=== PATIENT | female | born 1945 | race Caucasian/White ===

== ENCOUNTER → 2019-04-25 | Outpatient (CLI) | payer MEDICARE ==
[~2019-04-25] MED LIST: ALEN70SO PO; AMIT50TA PO; AMLO5TAB6 PO; BUPR150T3 PO; CALC600T7 PO; CALCCHW4 PO; CRES10TA PO; DOCU100T8 PO; DOCU250C7 PO; GABA-845 PO; LOSA100T5 PO; LYRI75CA PO; MIRA3350 PO; MIRA33504 PO; OMEP40CA2 PO; PERC5TAB12 PO; PROAAER10 INH; SENN-83 PO; SENN8.6T76 PO; TYLE167L PO; VITA100067 PO; XARE10TA PO; tylenol pm PO
[2019-04-25 19:03] LABS: BLOOD UREA NITROGEN 20 MG/DL (7-18); CREATININE FOR GFR 0.88 MG/DL (0.55-1.30); GLOMERULAR FILTRATION RATE > 60.0 (>39)
== END ==
LOC: M SMT 14:23
PROVIDERS: ATTEND Internal Medicine Pulmonary Disease
DX: R91.8 Other nonspecific abnormal finding of lung field (principal)

== ENCOUNTER → 2019-04-28 | Outpatient (CLI) | payer MEDICARE ==
[~2019-04-28] MED LIST changes: +ISOVUE-370 76% 100ML VIAL (Q9967) As Ordered ONE
--- NOTE | 2019-04-28 12:25 | REP ---
CT of the chest with IV contrast: Comparison is the outside PET / CT scan dated 03/10 2019 from [place], [place]. There is a right upper lobe lung nodule, similar to the comparison study. On the CT scan today the nodule measures 2.5 cm AP by 1.5 cm transverse by 1.5 cm craniocaudad. The margins are lobulated. No other lung nodules or masses are again. There is no mediastinal, hilar or axillary lymph node enlargement. There are numerous bulla replacing the lung parenchyma bilaterally. There is discoid atelectasis in the right middle lobe. The thoracic aorta is unremarkable. Cardiac size is normal. There is no pericardial effusion. The visualized upper abdominal contents are unremarkable. There is no adrenal mass. Impression: There is a right upper lobe lung nodule as described. There is no adenopathy. There is no adrenal mass. There is no hepatic mass in the visualized hepatic parenchyma. There are numerous bulla replacing the lung parenchyma bilaterally. Electronically Signed by Uri Sanchez MD 04/28/2019 12:17 P
== END ==
LOC: M RAD 09:39
PROVIDERS: ATTEND Internal Medicine Pulmonary Disease
DX: R91.8 Other nonspecific abnormal finding of lung field (principal)
CPT/HCPCS: 71260; Q9967

== ENCOUNTER 2019-05-01 08:11 | Day surgery (SDC) | payer MEDICARE ==
[~2019-05-01] VITALS: Ht 160 cm; Wt 65.3 kg
[~2019-05-01 08:11] MED LIST changes: +CETACAINE SPRAY 5GM As Ordered ONE; +EPINEPHrine 1MG/10ML SYRINGE 1.5IN As Ordered ONE; +EPINEPHrine INJ 1 MG/ML 1ML AMP As Ordered ONE; -ISOVUE-370 76% 100ML VIAL (Q9967) As Ordered ONE; +LIDOCAINE 1% SDV INJ 30 ML VIAL As Ordered ONE; +LIDOCAINE VISCOUS 2% SOLN 15ML UDC As Ordered ONE; +LR 1,000 ML IV ONE; +THROMBIN SOLN 5,000 UNITS VIAL As Ordered ONE
[2019-05-01] MEDS ORDERED: MIDAZOLAM INJ 2 MG/2 ML VIAL (J2250) As Ordered ONE (09:52)
[2019-05-01] MEDS ORDERED: fentaNYL 100 MCG/2 ML INJECTION (J3010) As Ordered ONE (09:52)
[2019-05-01] MEDS ORDERED: PROPOFOL 200 MG/20 ML VIAL As Ordered ONE (09:52)
[2019-05-01] MEDS ORDERED: dexameTHASONE 4 MG/ML 1ML VIAL (J1100) As Ordered ONE (09:52)
[2019-05-01] MEDS ORDERED: LIDOCAINE 2% INJ 100 MG/5 ML SDV (FOR ANES.) As Ordered ONE (09:52)
[2019-05-01] MEDS ORDERED: ROCURONIUM BROMIDE 50 MG/5 ML VIAL As Ordered ONE (09:52)
[2019-05-01] MEDS ORDERED: ONDANSETRON 4MG/2ML VIAL (J2405) As Ordered ONE (10:01)
[2019-05-01] MEDS ORDERED: PHENYLephrine HCL 500 MCG/5 ML (100MCG/ML) SYRINGE (J2370) As Ordered ONE (10:03)
[2019-05-01] MEDS ORDERED: SUGAMMADEX SODIUM 500 MG/5 ML VIAL (BRIDION) As Ordered ONE (10:45)
--- NOTE | 2019-05-01 11:20 | RO ---
DATE OF PROCEDURE: 05/01/2019 PREOPERATIVE DIAGNOSIS: Abnormal chest CT, left upper lobe mass. POSTOPERATIVE DIAGNOSIS: Abnormal chest CT, left upper lobe mass. FINDINGS: Endobronchial lesion and left upper lobe but more anterior of the posterior segments. PROCEDURALIST: Dr. Ramirez FORENSIC PATHOLOGIST: None. ANESTHESIA: General. SPECIMENS OBTAINED: 1. Endobronchial biopsy left upper lobe. 2. Cyto brush left upper lobe. 3. Bronchoalveolar lavage left upper lobe. 4. Bronchoalveolar wash of the left mainstem. DESCRIPTION OF PROCEDURE: After informed consent was reviewed with the patient in the preoperative area, she has taken down to OR number [id number] for an anticipated navigation bronchoscopy based on CT imaging. The patient was placed under general anesthesia, intubated with an 8.5 endotracheal tube. The case was then handed over to me. Time-out was performed with two patient identifiers identifying correct site, correct procedure. Cetacaine spray was then used to anesthetize the airway and provide lubrication for the 1T 190 bronchoscope. The 1T 190 bronchoscope was then inserted into the airway. Karen was sharp. Trachea was midline. Right and left mainstem bronchus was normal. RB 1 through 10 was normal without endobronchial lesions. There was significant amounts of banding and pitting. The spur was not enlarged. Right mainstem bronchus was normal. Upon entering the left mainstem bronchus, this was normal. LB 6 through 10 was normal. The lingula 4 and 5 did not show any endobronchial lesions. Upon entering the upper lobe, there were three segments. The most anterior of the posterior segments had an endobronchial lesion with a finger-like projection coming out of it, which was slightly mobile with suctioning. Upon suctioning, I was able to get the tissue to come out more. This had a necrotic end. The tissue was very pale white, mostly avascular; however, the base was slightly vascular. Biopsies of this were taken. I tried to pass forceps beyond this to see if there could be any movement of the tissue out of the obstructed airway. The tumor would retract with inspiration. Endobronchial biopsies were then performed. Hemostasis was assured after that. Cytology brushing was followed by BAL. At that point in time, I retracted the 1T 190 scope and placed a linear endobronchial ultrasound to view the area to see if I was able to see any surrounding tissue for needle aspiration. I was not able to get into a position where there was enough tissue for needle aspiration. There was no significant adenopathy on endobronchial ultrasound. Therefore, the endobronchial ultrasound was removed. Bronchoscope was replaced and hemostasis was assured. The patient is extubated in recovery. Postprocedure chest x-ray is pending.
--- NOTE | 2019-05-01 11:22 | REP ---
CHEST, PORTABLE: AP portable view of the chest is performed. There is no pneumothorax, status post bronchoscopy. Nodular opacity is seen in the left suprahilar region. There is diffuse interstitial prominence. The heart is normal in size. There is calcification and tortuosity of the thoracic aorta. Mediastinal silhouette is otherwise unremarkable. IMPRESSION: No pneumothorax, status post bronchoscopy. Electronically Signed by Uri Artis MD 05/02/2019 09:53 A
[2019-05-01] MEDS ORDERED: fentaNYL 100 MCG/2 ML INJECTION (J3010) IV PRN (12:00)
[2019-05-01] MEDS ORDERED: LR 1,000 ML IV SCH (12:00)
[2019-05-01] MEDS ORDERED: ONDANSETRON 4MG/2ML VIAL (J2405) IV PRN (12:00)
[2019-05-01 12:35] VITALS: BP 139/82
[2019-05-01 13:23] LABS: COLOR RED (COLORLESS); SOURCE LEFT UPPER LOBE
[2019-05-01 13:24] LABS: APPEARANCE HAZY (CLEAR)
== END 2019-05-01 12:35 | disposition home or self-care (01) ==
LOC: M SDC 08:11
PROVIDERS: ATTEND Internal Medicine Pulmonary Disease
DX: B44.1 Other pulmonary aspergillosis (principal); J44.9 Chronic obstructive pulmonary disease, unspecified; I10 Essential (primary) hypertension; E78.5 Hyperlipidemia, unspecified; I73.9 Peripheral vascular disease, unspecified; K21.9 Gastro-esophageal reflux disease without esophagitis; Z79.899 Other long term (current) drug therapy; Z87.891 Personal history of nicotine dependence; M81.0 Age-related osteoporosis without current pathological fracture
CPT/HCPCS: 31623; 31624; 31625; 71045; 87070; 87077; 87102; 87186; 87205; 88104; 88305; 89050; J1100; J2250; J2370; J2405; J3010

== ENCOUNTER → 2019-05-25 | Outpatient (REF) | payer MEDICARE ==
[~2019-05-25] MED LIST changes: -CETACAINE SPRAY 5GM As Ordered ONE; -EPINEPHrine 1MG/10ML SYRINGE 1.5IN As Ordered ONE; -EPINEPHrine INJ 1 MG/ML 1ML AMP As Ordered ONE; -LIDOCAINE 1% SDV INJ 30 ML VIAL As Ordered ONE; -LIDOCAINE VISCOUS 2% SOLN 15ML UDC As Ordered ONE; -LR 1,000 ML IV ONE; -OMEP40CA2 PO; +OMEP40CA97 PO; -THROMBIN SOLN 5,000 UNITS VIAL As Ordered ONE
[2019-05-25 13:24] LABS: BASO % 0.5 % (0.0-1.0); EOS # 0.1 10^3/uL (0.0-0.5); HEMATOCRIT 43.1 % (36.0-47.0); HEMOGLOBIN 14.3 g/dl (12.0-15.5); LYMPH # 1.3 10^3/uL (1.5-5.0); LYMPH % 21.1 % (24.0-44.0); MEAN CORPUSCULAR HEMOGLOBIN 31.1 pg (27.0-33.0); MEAN CORPUSCULAR HGB CONC 33.2 g/dl (32.0-36.5); MEAN CORPUSCULAR VOLUME 93.7 fl (80.0-96.0); MONO # 0.7 10^3/uL (0.0-0.8); MONO % 11.1 % (0.0-5.0); NEUTROPHILS % 66.1 % (36.0-66.0); PLATELET COUNT, AUTOMATED 232 10^3/uL (150-450)
[2019-05-25 14:09] LABS: ALT/SGPT 20 U/L (12-78); BILIRUBIN,TOTAL 0.4 MG/DL (0.2-1.0); BLOOD UREA NITROGEN 23 MG/DL (7-18); C REACTIVE PROTEIN QUANTITATIV < 0.30 MG/DL (0.00-0.30); CALCIUM LEVEL 9.3 MG/DL (8.8-10.2); CARBON DIOXIDE LEVEL 26 MEQ/L (21-32); CHLORIDE LEVEL 105 MEQ/L (98-107); CREATININE FOR GFR 0.79 MG/DL (0.55-1.30); GLOMERULAR FILTRATION RATE > 60.0 (>39); GLUCOSE, FASTING 94 MG/DL (70-100); POTASSIUM SERUM 4.2 MEQ/L (3.5-5.1); SODIUM LEVEL 139 MEQ/L (136-145); TOTAL PROTEIN 7.2 GM/DL (6.4-8.2)
== END ==
LOC: M SFHCPLAZ 09:03
PROVIDERS: ATTEND Internal Medicine Infectious Disease
DX: B44.9 Aspergillosis, unspecified (principal)
CPT/HCPCS: 36415; 80053; 85025; 86140; 87305; G0463

== ENCOUNTER → 2019-07-27 | Outpatient (REF) | payer MEDICARE ==
[2019-07-27 11:47] LABS: BASO # 0.1 10^3/uL (0.0-0.2); BASO % 0.7 % (0.0-1.0); EOS # 0.1 10^3/uL (0.0-0.5); EOS % 0.7 % (0.0-3.0); HEMATOCRIT 45.3 % (36.0-47.0); HEMOGLOBIN 14.7 g/dl (12.0-15.5); LYMPH # 1.2 10^3/uL (1.5-5.0); LYMPH % 17.8 % (24.0-44.0); MEAN CORPUSCULAR HEMOGLOBIN 30.4 pg (27.0-33.0); MEAN CORPUSCULAR HGB CONC 32.5 g/dl (32.0-36.5); MEAN CORPUSCULAR VOLUME 93.6 fl (80.0-96.0); MONO # 0.6 10^3/uL (0.0-0.8); MONO % 9.1 % (0.0-5.0); NEUTROPHILS % 71.4 % (36.0-66.0); PLATELET COUNT, AUTOMATED 237 10^3/uL (150-450); RED BLOOD COUNT 4.84 10^6/uL (4.00-5.40)
[2019-07-27 12:32] LABS: ALBUMIN 4.2 GM/DL (3.2-5.2); ALT/SGPT 20 U/L (12-78); BILIRUBIN,TOTAL 0.3 MG/DL (0.2-1.0); BLOOD UREA NITROGEN 19 MG/DL (7-18); C REACTIVE PROTEIN QUANTITATIV < 0.30 MG/DL (0.00-0.30); CALCIUM LEVEL 9.1 MG/DL (8.8-10.2); CARBON DIOXIDE LEVEL 29 MEQ/L (21-32); CHLORIDE LEVEL 104 MEQ/L (98-107); GLOMERULAR FILTRATION RATE > 60.0 (>39); GLUCOSE, FASTING 101 MG/DL (70-100); POTASSIUM SERUM 4.3 MEQ/L (3.5-5.1); SODIUM LEVEL 140 MEQ/L (136-145); TOTAL PROTEIN 7.6 GM/DL (6.4-8.2)
== END ==
LOC: M SFHCPLAZ 10:37
PROVIDERS: ATTEND Internal Medicine Infectious Disease
DX: B44.9 Aspergillosis, unspecified (principal)
CPT/HCPCS: 36415; 80053; 80299; 85025; 86140; G0463

== ENCOUNTER → 2019-08-31 | Outpatient (CLI) | payer MEDICARE ==
[~2019-08-31] MED LIST changes: +ACET25TA12 PO; +BREO1INH3 INH; +DOCU100C16 PO; +LOSA100T50 PO
--- NOTE | 2019-08-31 12:54 | REPPI ---
PA and lateral chest three views: Comparison is the portable chest dated 05/01/[address] dated 04/28 2019. The The left hilus is enlarged and there is volume loss in the left hemithorax with mediastinal shift to the left as changes from the comparison study. On the comparison CT there was a left upper lobe 2.5 cm nodule. This is not visualized on the plain film study today. There is a 5 ml nodule in the right lobe, not significantly changed from PA and lateral views of for 2010, likely a granuloma. There is compensatory hyperinflation of the right lung. Right lung is otherwise clear. Cardiac size is normal. The mediastinum is unremarkable. There is a right shoulder arthroplasty. Impression: There are findings in the left lung as described. Right lung granuloma. Electronically Signed by Uri Sanchez MD 08/31/2019 12:44 P
[2019-08-31 13:39] LABS: BASO % 0.2 % (0.0-1.0); EOS % 0.1 % (0.0-3.0); HEMATOCRIT 40.2 % (36.0-47.0); HEMOGLOBIN 12.5 g/dl (12.0-15.5); LYMPH # 0.7 10^3/uL (1.5-5.0); LYMPH % 6.2 % (24.0-44.0); MEAN CORPUSCULAR HEMOGLOBIN 28.8 pg (27.0-33.0); MEAN CORPUSCULAR HGB CONC 31.1 g/dl (32.0-36.5); MEAN CORPUSCULAR VOLUME 92.6 fl (80.0-96.0); MONO # 0.2 10^3/uL (0.0-0.8); MONO % 1.8 % (0.0-5.0); NEUTROPHILS % 91.2 % (36.0-66.0); PLATELET COUNT, AUTOMATED 359 10^3/uL (150-450); RED BLOOD COUNT 4.34 10^6/uL (4.00-5.40)
[2019-08-31 14:05] LABS: ALBUMIN 3.3 GM/DL (3.2-5.2); ALT/SGPT 11 U/L (12-78); BILIRUBIN,TOTAL 0.4 MG/DL (0.2-1.0); BLOOD UREA NITROGEN 13 MG/DL (7-18); CALCIUM LEVEL 8.9 MG/DL (8.8-10.2); CARBON DIOXIDE LEVEL 25 MEQ/L (21-32); CHLORIDE LEVEL 101 MEQ/L (98-107); CREATININE FOR GFR 0.76 MG/DL (0.55-1.30); GLOMERULAR FILTRATION RATE > 60.0 (>39); GLUCOSE, FASTING 122 MG/DL (70-100); POTASSIUM SERUM 4.2 MEQ/L (3.5-5.1); SODIUM LEVEL 136 MEQ/L (136-145); TOTAL PROTEIN 7.1 GM/DL (6.4-8.2)
== END ==
LOC: M PLALAB 11:22
PROVIDERS: ATTEND Internal Medicine Infectious Disease
DX: R91.8 Other nonspecific abnormal finding of lung field (principal); J84.10 Pulmonary fibrosis, unspecified; B44.9 Aspergillosis, unspecified; J43.1 Panlobular emphysema
CPT/HCPCS: 36415; 71046; 80053; 80285; 85025; G0463

== ENCOUNTER → 2019-09-04 | Outpatient (CLI) | payer MEDICARE ==
[~2019-09-04] MED LIST changes: -ACET25TA12 PO; -BREO1INH3 INH; -DOCU100C16 PO; +ISOVUE-370 76% 100ML VIAL (Q9967) As Ordered ONE; -LOSA100T50 PO
--- NOTE | 2019-09-04 10:33 | REP ---
CT of the chest with IV contrast: Comparison is 04/28/2019. The patient has a right shoulder arthroplasty, therefore, images are post processed with beam-hardening reduction software. On the comparison study of 04/28/2019 there was a left upper lobe 2.5 cm lung nodule. 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 On the study today there is complete collapse of the left upper lobe. The nodule is not identified but could be obscured within the collapsed left upper lobe lung parenchyma. The possibility of obstruction of the left upper lobe lobe bronchus centrally is raised. There are no other lung masses or nodules. Numerous bulla replacing the lung parenchyma are again identified. There are no pleural effusions. There is no mediastinal, hilar or axillary lymph node enlargement. The thoracic aorta is unremarkable. Cardiac size is normal. There is no pericardial effusion. Upper abdomen: The visualized upper abdominal contents are unremarkable. Impression: There is complete collapse of the upper lobe of the left lung as an interval change. The previous left upper lobe lung nodule is not identified and is likely obscured within the left lung parenchyma. There are no infiltrates or pleural effusions. There are no other lung nodules or masses. There is no adenopathy. Possibility of left upper lobe central bronchus obstruction is raised. Electronically Signed by Uri Sanchez MD 09/04/2019 10:25 A
== END ==
LOC: M RAD 07:59
PROVIDERS: ATTEND Internal Medicine Infectious Disease
DX: B44.9 Aspergillosis, unspecified (principal); Z96.611 Presence of right artificial shoulder joint; J98.11 Atelectasis; J43.9 Emphysema, unspecified
CPT/HCPCS: 71260; Q9967

== ENCOUNTER 2019-09-21 10:22 | Day surgery (SDC) | payer MEDICARE ==
[~2019-09-21] VITALS: Ht 162.6 cm; Wt 65.3 kg
[2019-09-21] MEDS: D5W 1,000 ML IV SCH ×2 (06:00→11:00)
[~2019-09-21 10:22] MED LIST changes: +ACET25TA12 PO; +BREO1INH3 INH; +DOCU100C16 PO; -ISOVUE-370 76% 100ML VIAL (Q9967) As Ordered ONE; +LOSA100T50 PO
[2019-09-21] MEDS ORDERED: LIDOCAINE 1% MDV 20ML VIAL As Ordered ONE (11:15)
[2019-09-21] MEDS ORDERED: CETACAINE SPRAY 5GM As Ordered ONE (11:15)
[2019-09-21] MEDS ORDERED: LIDOCAINE VISCOUS 2% SOLN 15ML UDC As Ordered ONE (11:16)
[2019-09-21] MEDS ORDERED: EPINEPHrine 1MG/10ML SYRINGE 1.5IN As Ordered ONE (11:16)
[2019-09-21] MEDS ORDERED: fentaNYL 100 MCG/2 ML INJECTION (J3010) As Ordered ONE (11:18)
[2019-09-21] MEDS ORDERED: MIDAZOLAM INJ 2 MG/2 ML VIAL (J2250) As Ordered ONE (11:19)
[2019-09-21] MEDS ORDERED: MIDAZOLAM INJ 2 MG/2 ML VIAL (J2250) IV ONE ×2 (11:40→11:43)
[2019-09-21] MEDS ORDERED: fentaNYL 100 MCG/2 ML INJECTION (J3010) IV ONE ×2 (11:40→11:51)
[2019-09-21] MEDS ORDERED: THROMBIN SOLN 5,000 UNITS VIAL As Ordered ONE (12:05)
[2019-09-21 12:45] VITALS: BP 160/78
--- NOTE | 2019-09-23 07:41 | RO ---
DATE OF PROCEDURE: 09/21/2019 PREOPERATIVE DIAGNOSIS: Abnormal CT scan/x-ray. POSTOPERATIVE DIAGNOSES: Abnormal CT scan/x-ray with chronic bronchitis and left upper lobe endobronchial obstructing lesion. PROCEDURE: Fiberoptic bronchoscopy with wash, brush biopsies, and photos. SURGEON: Dr. Alphonse Baker MANAGER SWITCH: ANESTHESIA: Conscious sedation with 75 mcg of fentanyl and 4 mg of Versed given intravenously and sequentially and titrated for effect. Local anesthesia was 2% viscous Xylocaine to the nose, Cetacaine spray in the pharynx, 1% Xylocaine via the bronchoscope. OTHER MEDICATIONS: Topical thrombin 5000 units. Informed consent was obtained prior to the procedure. OPERATIVE FINDINGS: 1. Vocal cords move well 2. Diffuse changes of chronic bronchitis. 3. Large obstructing endobronchial lesion of the left upper lobe. DESCRIPTION OF PROCEDURE: After patient was identified and the above anesthesia given, the fiberoptic bronchoscope was easily passed via the right naris. Hypopharynx was entered and appeared normal. Vocal cords moved well. Trachea was then entered. Widely patent. Karen was sharp and moved well. Right lung entered first. All segments and subsegments upper, middle, and lower lobe were easily identified and widely patient. Diffuse changes of chronic bronchitis were noted. Attention was then turned to the left. Left main stem widely patent. As soon as the left upper lobe was visualized, there was a large white polypoid lesion emanating from it that completely obstructed the left upper lobe. There was some friability of the mucosa even in the distal left main stem. Left lower lobe was identified. Superior segment and basilar segments widely patent. Diffuse changes of chronic bronchitis were noted, but no other focal endobronchial lesion identified. Attention was then turned to the left upper lobe. The area was attempted to be suctioned, and the lesion clearly is attached. With manipulation, large amounts of purulent material emanated from beyond it. The area was lavaged. A large amount of purulent secretions were encountered. Multiple biopsies of the lesion itself as well as what was likely a stalk behind it were taken. There was some bleeding. The area was then brushed for cytology. Lavage was undertaken. Mild bleeding was encountered that was easily controlled with topical thrombin and saline lavage. When adequate hemostasis was assured, the scope was then withdrawn and the procedure terminated. Patient was taken to the recovery room in good and stable condition. No immediate complications or condensation were identified. MTDD
== END 2019-09-21 13:00 | disposition home or self-care (01) ==
LOC: M OPP 10:22
PROVIDERS: ATTEND Internal Medicine Pulmonary Disease
DX: J98.09 Other diseases of bronchus, not elsewhere classified (principal); R91.8 Other nonspecific abnormal finding of lung field
CPT/HCPCS: 31623; 31624; 31628; 87070; 87077; 87102; 87116; 87186; 87205; 87206; 88104; 88305; J2250; J3010

== ENCOUNTER 2019-10-12 05:55 | Day surgery (SDC) | payer MEDICARE ==
[~2019-10-12] VITALS: Ht 160 cm; Wt 67.6 kg
[2019-10-12] MEDS ORDERED: VFEN200T PO (06:26)
[2019-10-12] MEDS ORDERED: LR 1,000 ML IV ONE (07:00)
[2019-10-12] MEDS ORDERED: propofoL 200 MG/20 ML VIAL As Ordered ONE (07:12)
[2019-10-12] MEDS ORDERED: ROCURONIUM BROMIDE 50 MG/5 ML VIAL As Ordered ONE (07:12)
[2019-10-12] MEDS ORDERED: LIDOCAINE 2% INJ 100 MG/5 ML SDV (FOR ANES.) As Ordered ONE (07:12)
[2019-10-12] MEDS ORDERED: fentaNYL 100 MCG/2 ML INJECTION (J3010) As Ordered ONE (07:12)
[2019-10-12] MEDS ORDERED: MIDAZOLAM INJ 2 MG/2 ML VIAL (J2250) As Ordered ONE (07:13)
[2019-10-12] MEDS ORDERED: THROMBIN SOLN 5,000 UNITS VIAL As Ordered ONE (07:16)
[2019-10-12] MEDS ORDERED: LIDOCAINE 1% MDV 20ML VIAL As Ordered ONE (07:16)
[2019-10-12] MEDS ORDERED: CETACAINE SPRAY 5GM As Ordered ONE (07:16)
[2019-10-12] MEDS ORDERED: ACETYLCYSTEINE 20% 30 ML VIAL As Ordered ONE (07:17)
[2019-10-12] MEDS ORDERED: LIDOCAINE VISCOUS 2% SOLN 15ML UDC As Ordered ONE (07:17)
[2019-10-12] MEDS ORDERED: PHENYLEPHRINE 0.5% NASAL SPRAY 15 ML As Ordered ONE (07:17)
[2019-10-12] MEDS ORDERED: EPINEPHrine 1MG/10ML SYRINGE 1.5IN As Ordered ONE (07:17)
[2019-10-12] MEDS ORDERED: dexameTHASONE 4 MG/ML 1ML VIAL (J1100) As Ordered ONE (07:55)
[2019-10-12] MEDS ORDERED: ONDANSETRON 4MG/2ML VIAL (J2405) As Ordered ONE (07:55)
[2019-10-12] MEDS ORDERED: SUGAMMADEX SODIUM 500 MG/5 ML VIAL (BRIDION) As Ordered ONE (07:56)
[2019-10-12] MEDS ORDERED: PERCOCET 5MG/325MG TAB PO PRN (08:45)
[2019-10-12] MEDS ORDERED: METOCLOPRAMIDE INJ 10MG/2ML VIAL (J2765) IV PRN (08:45)
[2019-10-12] MEDS ORDERED: LR 1,000 ML IV SCH (08:45)
[2019-10-12] MEDS ORDERED: ONDANSETRON 4MG/2ML VIAL (J2405) IV PRN (08:45)
[2019-10-12] MEDS ORDERED: fentaNYL 100 MCG/2 ML INJECTION (J3010) IV PRN (08:45)
--- NOTE | 2019-10-12 09:02 | RO ---
DATE OF PROCEDURE: 10/12/2019 PREOPERATIVE DIAGNOSIS: Abnormal CT scan. POSTOPERATIVE DIAGNOSIS: Abnormal CT scan. PROCEDURE: Fiberoptic bronchoscopy with washes and biopsies. SURGEON: Dr. Alphonse Baker CLASSROOM AIDE: ANESTHESIA: General. Informed consent was obtained prior to the procedure. Other medications used are topical Thrombin 5000 units. OPERATIVE FINDINGS: 1. Diffuse change of chronic bronchitis. 2. Persistent endobronchial obstructing lesion of the left upper lobe. DESCRIPTION OF PROCEDURE: After the patient was identified and the above anesthesia given, the fiberoptic bronchoscope was easily passed via the existing endotracheal tube. It was found to be in good position above the nataly about 2 cm. The right lung was entered first. All segments and subsegments upper, middle, and lower lobes easily identified widely patent. Anomalous upper lobe with four subsegments. Diffuse changes of chronic bronchitis. Attention was then turned to the left. Again, the left mainstem widely patent. Left lower lobe and all of the segments and subsegments widely patent, but the left upper lobe clearly obstructed by endobronchial tissue. Multiple biopsies were taken of this area. The cells appearing quite bland with viewing by the cytopathologist. The area was further biopsied beneath this lesion and a large amount of purulent material was able to be expressed. Further manipulation of the tissue seemed to loosen it and a very large portion of tissue was therefore able to be removed en bloc. Further biopsies was able to loosen more tissue and eventually almost the complete lesion was able to be removed in three or four segments. The mucosa underneath was quite friable, but eventually the subsegments of the left upper lobe were easily to be identified and did appear otherwise patent although mildly compromised by edema. There was bleeding encountered. This was easily controlled with topical Thrombin as well as saline lavage. When adequate hemostasis was achieved, the scope was withdrawn and the procedure terminated. Care was then turned over to anesthesia for reversal of anesthesia and extubation. No immediate complications were identified.
[2019-10-12 09:37] VITALS: BP 118/64
== END 2019-10-12 10:12 | disposition home or self-care (01) ==
LOC: M SDC 05:55
PROVIDERS: ATTEND Internal Medicine Pulmonary Disease
DX: C34.12 Malignant neoplasm of upper lobe, left bronchus or lung (principal); J42 Unspecified chronic bronchitis; Z86.19 Personal history of other infectious and parasitic diseases; J43.1 Panlobular emphysema; I10 Essential (primary) hypertension; E78.5 Hyperlipidemia, unspecified; K58.9 Irritable bowel syndrome, unspecified; M19.90 Unspecified osteoarthritis, unspecified site; M54.12 Radiculopathy, cervical region; L30.1 Dyshidrosis [pompholyx]; K21.9 Gastro-esophageal reflux disease without esophagitis; M51.36 Other intervertebral disc degeneration, lumbar region; M81.0 Age-related osteoporosis without current pathological fracture; Z87.891 Personal history of nicotine dependence; Z79.899 Other long term (current) drug therapy; Z79.51 Long term (current) use of inhaled steroids
CPT/HCPCS: 31623; 31625; 87070; 87102; 87116; 87205; 87206; 88104; 88305; J1100; J2250; J2405; J3010

== ENCOUNTER → 2019-10-13 | Outpatient (CLI) | payer MEDICARE ==
[~2019-10-13] MED LIST changes: +VFEN200T PO
--- NOTE | 2019-10-13 09:44 | REPVR ---
PROCEDURE INFORMATION: Exam: CT Chest Without Contrast Exam date and time: 10/13/2019 9:04 AM Age: 74 years old Clinical indication: Pain; Other: Abn finding in lungs; Additional info: Abn finding of lung TECHNIQUE: Imaging protocol: Computed tomography of the chest without contrast. 3D rendering: MIP and/or 3D reconstructed images were created by the technologist. Radiation optimization: All CT scans at this facility use at least one of these dose optimization techniques: automated exposure control; mA and/or kV adjustment per patient size (includes targeted exams where dose is matched to clinical indication); or iterative reconstruction. COMPARISON: CT Chest with contrast 09/04/2019 8:24 AM FINDINGS: Lungs: Scarring and bronchiectasis in the right upper lobe Centrilobular and paraseptal emphysema. Patchy reticulonodular and ground-glass opacities in the bilateral lower and right upper lobes. Calcified granuloma in the right upper lobe. Pleural space: Unremarkable. No pneumothorax. No pleural effusion. Heart: Atherosclerotic disease of the coronary arteries. Aorta: Atherosclerotic disease of the thoracic aorta. Lymph nodes: Unremarkable. No enlarged lymph nodes. Bones/joints: Status post right shoulder arthroplasty. Multilevel degenerative disease of the thoracic spine. Osteopenia. Soft tissues: Unremarkable. IMPRESSION: Scarring and bronchiectasis in the right upper lobe. Patchy reticulonodular and ground-glass opacities in the bilateral lower and right upper lobes. Electronically signed by: Charles Pryor On 10/13/2019 09:44:21 AM
== END ==
LOC: M RAD 08:53
PROVIDERS: ATTEND Internal Medicine Pulmonary Disease
DX: R91.8 Other nonspecific abnormal finding of lung field (principal); J43.2 Centrilobular emphysema; J84.10 Pulmonary fibrosis, unspecified; I70.0 Atherosclerosis of aorta; I25.10 Atherosclerotic heart disease of native coronary artery without angina pectoris

== ENCOUNTER → 2019-10-24 | Outpatient (CLI) | payer MEDICARE ==
--- NOTE | 2019-10-24 13:23 | PFTRPT ---
Height: 62.00 Inches Weight: 148.00 Lbs BSA: 1.68 Diagnosis: C34.12 DATE OF PROCEDURE: 10/24/2019 ORDERED BY: Dr. Ramirez Spirometry: Pre and post bronchodilator study of excellent technical quality. Forced vital capacity normal. FEV1 in proportion. Obstructive index is, therefore, normal. Flow Volume Loop: Expiratory limb of the flow volume loop is normal. No significant bronchodilator response identified. Lung Volumes: Total lung capacity mildly elevated. Residual volume is in proportion. Diffusing Capacity: Diffusing capacity, although significantly reduced, does barely correct for alveolar volume. Hemoglobin: Hemoglobin acceptable at 14.3. Airway Mechanics: Airway resistance and conductance are normal. IMPRESSION: Some degree of diffusing impairment. Please correlate clinically. MTDD
== END ==
LOC: M CARPUL 12:37
PROVIDERS: ATTEND Internal Medicine Pulmonary Disease
DX: C34.12 Malignant neoplasm of upper lobe, left bronchus or lung (principal)

== ENCOUNTER → 2019-10-30 | Outpatient (CLI) | payer MEDICARE ==
--- NOTE | 2019-10-31 09:43 | REP ---
PET/CT: HISTORY: Staging lung cancer. History of aspergilloma complicating adenocarcinoma . Left upper lobe. COMPARISONS: Comparison PET/CT March 10, 2019 from [facility]. Comparison chest CT October 13, 2019. TECHNIQUE: 56 minutes following the intravenous injection of a 9.00 mCi dose of F-18 FDG, three-dimensional PET scintigraphy is acquired from the skull base to the proximal thighs. Triplanar noncontrast CT scanning is acquired through the same anatomic range for attenuation correction, and image registration with scan parameters optimized to minimize radiation exposure to the patient. PET scintigraphy and CT datasets were fused and displayed on a workstation with multiplanar and projection display capability. PET/CT FINDINGS: Head and neck soft tissues are unremarkable. There is hypermetabolic uptake associated with the prosthetic right shoulder again noted. This is not felt to be suspicious of a malignancy. There is a hypermetabolic focus in the collapsed left upper lobe region suprahilar area. Maximum SUV value here is 5.26. Minimally increased parenchymal uptake is seen in the atelectatic lung parenchyma peripheral to this, 3.42. There is no other abnormal intrathoracic hypermetabolic uptake. There is some parenchymal nodular changes in the right lower lobe as seen on recent CT study but no hypermetabolic uptake is seen here. These nodular densities are quite small. In the abdomen and pelvis, no abnormal hypermetabolic uptake is seen. IMPRESSION: There is a hypermetabolic focus in the collapsed left upper lobe which may be residual malignancy. No other abnormal hypermetabolic uptake. Electronically Signed by Marino Ansari MD 10/31/2019 10:23 A
== END ==
LOC: M PLARAD 11:14
PROVIDERS: ATTEND Internal Medicine Pulmonary Disease
DX: C34.12 Malignant neoplasm of upper lobe, left bronchus or lung (principal)
CPT/HCPCS: 78815; A9552

== ENCOUNTER → 2019-11-13 | Outpatient (CLI) | payer MEDICARE ==
[~2019-11-13] MED LIST changes: +PROHANCE 279.3MG/ML 15ML VIAL (A9576) As Ordered ONE
--- NOTE | 2019-11-14 08:13 | REP ---
MRI BRAIN WITHOUT AND WITH IV CONTRAST: HISTORY: Lung carcinoma. Restaging. TECHNIQUE: Axial and sagittal imaging planes are utilized for T1 and T2-weighted scans. Sequences include spin-echo, fast spin echo, FLAIR, and diffusion weighted sequences. Gadolinium enhancement dose is 13 mL of intravenous ProHance. No comparison brain imaging. MRI FINDINGS: No bony calvarial defect or lesion is seen. Craniocervical junction and upper cervical cord are unremarkable. Diffusion weighted scans show no evidence of restricted diffusion to suggest acute ischemia. There is no evidence of intracranial mass lesion. No intraorbital or paranasal sinus abnormality is observed. There are scattered subcortical and periventricular white matter T2 hyperintense foci consistent with small vessel changes bilaterally. None of these demonstrate contrast enhancement. No abnormal contrast enhancement is seen within the brain parenchyma. There is no evidence of abnormal dural or leptomeningeal enhancement. No extra-axial fluid collection or midline shift is observed. IMPRESSION: There is no evidence of intracranial metastasis. Mild small vessel changes. No acute intracranial abnormality. Electronically Signed by Marino Ansari MD 11/14/2019 10:36 A
== END ==
LOC: M RAD 14:40
PROVIDERS: ATTEND Thoracic Surgery (Cardiothoracic Vascular Surgery)
DX: C34.12 Malignant neoplasm of upper lobe, left bronchus or lung (principal)
CPT/HCPCS: 70553; A9576

== ENCOUNTER → 2019-11-14 | Outpatient (CLI) | payer MEDICARE ==
[~2019-11-14] MED LIST changes: -PROHANCE 279.3MG/ML 15ML VIAL (A9576) As Ordered ONE
--- NOTE | 2019-11-15 11:36 | RADONC ---
RADIATION ONCOLOGY CONSULTATION NOTE DATE: 11/14/2019 This is a telemedicine visit. The patient was informed of the risks including security breech, technological failure, inability to perform a comprehensive physical exam which could delay or prevent an accurate diagnosis, and potential complications from treatment decisions rendered over a telemedicine platform. The patient understands and consented to the use of telehealth services, phone only. CHART NUMBER: [id number] DIAGNOSIS: Left lung cancer. STAGE: IIB, T2b, N0, M0 ECOG PERFORMANCE STATUS: 0 Ms. 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 HISTORY OF PRESENT ILLNESS: The patient's history dates back to fall of last year. She had been followed for a right upper lobe lung lesion with multiple CT scans over time, which had remained unchanged. In April 2019, she developed a chronic cough and was found to have an Aspergillus mass in the upper extent of the left lobe. This was treated by Dr. Flaherty, and she did well until she developed an increased cough more recently around the holidays. Subsequent CT scan was done in August and revealed a left upper lobe complete occlusion of the bronchus with atelectasis. On 10/12/2019, the patient underwent bronchoscopic biopsy and pathology revealed a well-differentiated adenocarcinoma. Pulmonary function tests were done on 10/24/2019 and revealed an FEV-1 of 2.24. The diffusing capacity, however, was 65%. The patient was seen by our thoracic surgeon, Dr. Pennington, and after careful review, it was decided in order to treat this, she would need a pneumonectomy. He thought the risk of pneumonectomy was too great and is now referring this patient to us for discussion of definitive radiation therapy as an alternative treatment. PAST MEDICAL HISTORY: The patient's past medical history is positive for varicose veins, hypertension, cervical spine degeneration, gastroesophageal reflux disease, lumbar degenerative disc disease, emphysema, osteopenia, hyperlipidemia, insomnia, osteoarthritis, tonsillectomy, appendectomy, hysterectomy, partial left knee replacement, right shoulder rotator cuff repair times two. ALLERGIES: The patient has no known drug allergies. SOCIAL HISTORY: The patient had smoked one pack of cigarettes per day since 1960. She quit in 2016. She drinks alcohol socially. FAMILY HISTORY: The patient's family history is negative for lung cancer or other malignancies. REVIEW OF SYSTEMS: The patient's review of systems is positive for some anxiety as well as shortness of breath and decreased energy. It is otherwise noncontributory. She denies nausea, vomiting, fevers, chills, night sweats, diplopia, headaches, anxiety or depression, anorexia, weight loss, visual disturbances, chest pain, urinary or bowel difficulties, bone pain, or neurological problems. PHYSICAL EXAMINATION: Physical examination was deferred for COVID-19 precautions. This was a telephone consultation. ASSESSMENT: I had a very lengthy discussion with this patient lasting approximately 30 minutes. We discussed logistics of treatment planning, simulation and subsequent fractionated daily radiation treatments. We discussed the potential benefits, as well as possible acute and chronic sequelae of external beam radiation therapy. We discussed specifically the loss of lung function. The patient is scheduled to be seen by medical oncology on for consultation. We will coordinate her care with medical oncology. If she chooses radiation, concomitant chemotherapy would be indicated pending final decision by the medical oncologist. We also discussed the present crisis situation with COVID-19. The patient is quite concerned about coming in for treatments and exposing herself to this potential deadly infection. The patient has risk factors and previous lung disease and clearly is at high risk if she develops Coronavirus. I have let her know that coming in, of course, will lead to increased risk versus staying at home. I also discussed the fact that this is still a potentially curable malignancy. We do not at this time know how things will be with regards to the Coronavirus in 2 months' time. Undoubtedly, over the next several weeks, it will worsen here. Therefore, delaying treatment while increasing the risk of cancer may not decrease the risk of exposure to Coronavirus at all. Once again, this is a very personal decision. I will leave this, of course, up to the patient and her family as to when and if she wants to start treatment. For the present time, I am scheduling her for initiation of treatment planning and simulation. Further recommendations will be made following consultation with her medical oncologist. Thank you for allowing us to participate in this patient's care. As always, warm regards. cc: MD Eliezer Sanders MD Lawrence Kramer, MD
== END ==
LOC: M ONCR 13:03
PROVIDERS: ATTEND Radiology Radiation Oncology
DX: C34.90 Malignant neoplasm of unspecified part of unspecified bronchus or lung (principal)

== ENCOUNTER → 2019-11-16 | Outpatient (REF) | payer MEDICARE ==
[~2019-11-16] MED LIST changes: +ONDA8TAB10 PO; +ONDA8TAB8 PO; +OSTE1TAB2 PO; +PROC10TA4 PO
[2019-11-16 14:54] LABS: BASO % 0.4 % (0.0-1.0); EOS % 0.5 % (0.0-3.0); HEMATOCRIT 42.2 % (36.0-47.0); HEMOGLOBIN 13.6 g/dl (12.0-15.5); LYMPH # 1.7 10^3/uL (1.5-5.0); LYMPH % 20.1 % (24.0-44.0); MEAN CORPUSCULAR HEMOGLOBIN 28.8 pg (27.0-33.0); MEAN CORPUSCULAR HGB CONC 32.2 g/dl (32.0-36.5); MEAN CORPUSCULAR VOLUME 89.4 fl (80.0-96.0); MONO # 0.8 10^3/uL (0.0-0.8); MONO % 9.7 % (0.0-5.0); NEUTROPHILS # 5.8 10^3/uL (1.5-8.5); NEUTROPHILS % 69.1 % (36.0-66.0); PLATELET COUNT, AUTOMATED 255 10^3/uL (150-450); RED BLOOD COUNT 4.72 10^6/uL (4.00-5.40); WHITE BLOOD COUNT 8.5 10^3/uL (4.0-10.0)
[2019-11-16 15:18] LABS: ALBUMIN 4.1 GM/DL (3.2-5.2); ALT/SGPT 24 U/L (12-78); BILIRUBIN,TOTAL 0.4 MG/DL (0.2-1.0); BLOOD UREA NITROGEN 17 MG/DL (7-18); C REACTIVE PROTEIN QUANTITATIV < 0.30 MG/DL (0.00-0.30); CALCIUM LEVEL 9.2 MG/DL (8.8-10.2); CARBON DIOXIDE LEVEL 26 MEQ/L (21-32); CHLORIDE LEVEL 105 MEQ/L (98-107); CREATININE FOR GFR 0.81 MG/DL (0.55-1.30); GLOMERULAR FILTRATION RATE > 60.0 (>39); GLUCOSE, FASTING 91 MG/DL (70-100); POTASSIUM SERUM 4.1 MEQ/L (3.5-5.1); SODIUM LEVEL 138 MEQ/L (136-145); TOTAL PROTEIN 7.4 GM/DL (6.4-8.2)
== END ==
LOC: M LAB REF 14:43
PROVIDERS: ATTEND Internal Medicine Infectious Disease
DX: B44.9 Aspergillosis, unspecified (principal)

== ENCOUNTER → 2019-11-22 | Outpatient (CLI) | payer MEDICARE ==
[~2019-11-22] MED LIST changes: +LIDOCAINE 1% MDV 20ML VIAL As Ordered ONE; +MIDAZOLAM INJ 2 MG/2 ML VIAL (J2250) As Ordered ONE; +ceFAZolin 1GM VIAL (J0690 PER 500MG) As Ordered ONE; +diphenhydrAMINE 50MG/ML VIAL (J1200) As Ordered ONE; +fentaNYL 100 MCG/2 ML INJECTION (J3010) As Ordered ONE
--- NOTE | 2019-11-22 13:35 | IRHP ---
[facility] IR Pre-Procedure H & P General Date of Service: Nov 22, 2019 Procedure: Same Day Surgery Interval History and Physical I have seen the patient and reviewed last H & P performed within 30 days. There is no significant interval change. History of Present Illness Chief Complaint The patient is a 74-year-old female admitted with a reason for visit of Lung Ca. PRE-PROCEDURE DIAGNOSIS: lung ca HEART: normal rate. LUNGS: normal breathing at rest. ASA Classification ASA Classification: II-Mild systemic disease Mallampati Score: II NPO: Yes Problems with prior sedation: No Obstructive Sleep Apnea: No Plan moderate sedation Allergies Coded Allergies: No Known Allergies (Unverified , 09/18/19) Home Medications Scheduled Amlodipine Besylate (Amlodipine Besylate), 10 MG PO QHS, (Reported) Calcium Carbonate/Vitamin D3 (Calcium 600 with Vit D Chew Tb), 1 CHW PO DAILY, (Reported) Docusate Sodium (Docusate Sodium), 100 MG PO BID, (Reported) Fluticasone/Vilanterol (Breo Ellipta 200-25 Mcg INH), 1 PUFF INH DAILY, (Reported) Losartan Potassium (Losartan Potassium), 100 MG PO DAILY, (Reported) Omeprazole (Omeprazole), 40 MG PO BID, (Reported) Rosuvastatin Calcium (Crestor), 20 MG PO DAILY, (Reported) Sennosides (Senna), 8.6 MG PO BID, (Reported) Voriconazole (Vfend), 200 MG PO DAILY, (Reported) Scheduled PRN Acetaminophen/Diphenhydramine (Acetaminophen Pm Caplet), 1 TAB PO QHSP PRN for SLEEP, (Reported) Albuterol Sulfate (Proair Hfa), 2 PUFF INH Q6HP PRN for SOB/WHEEZING, (Reported) Amitriptyline HCl (Amitriptyline HCl), 50 MG PO QHSP PRN for SLEEP, (Reported) Polyethylene Glycol 3350 (Miralax), 17 GM PO DAILY PRN for CONSTIPATION, (Reported) Discontinued Medications Docusate Sodium (Docusate Sodium), 250 MG PO BID, (Reported) Discontinued Reason: Pt states not taking Ondansetron (Ondansetron Odt), 8 MG PO Q6H Discontinued Reason: Pt states not taking Ondansetron HCl (Ondansetron HCl), 8 MG PO Q6H PRN for NAUSEA OR VOMITING Discontinued Reason: Pt states not taking Prochlorperazine Maleate (Prochlorperazine Maleate), 10 MG PO Q8HP PRN for NAUSEA OR VOMITING Discontinued Reason: Pt states not taking Prochlorperazine Maleate (Prochlorperazine Maleate), 10 MG PO Q8HP PRN for NAUSEA OR VOMITING Discontinued Reason: Pt states not taking Vit D3-Vit K/Berberine/Hops (Ostera Tablet), 1 TAB PO, (Reported) Discontinued Reason: Pt states not taking VS, I&O, 24H, Fishbone Vital Signs/I&O Vital Signs Date Time Temp Pulse Resp B/P (MAP) Pulse Ox O2 Delivery O2 Flow Rate FiO2 11/22/19 12:55 97.9 71 18 96 Room Air SMITH GERONIMO MD Nov 22, 2019 13:35
--- NOTE | 2019-11-22 14:22 | REP ---
IR Ultrasound and fluoroscopy-guided port placement. IR Ultrasound of the neck. IR Moderate sedation. Clinical information: Lung cancer. Physician: Dr. Singh. Procedure: The patient was advised of the benefits, risks, and alternatives of the procedure and informed consent was obtained. A time-out was performed with verification of the patient's name, MRN, site of procedure and type of procedure to be performed. The patient was positioned in the supine position on the angiographic table. The site was prepped and draped in the usual sterile fashion. Moderate sedation was performed by the physician including the presence of an independent trained observer who assisted and monitored the patient's level of consciousness and physiologic status. Following the administration of fentanyl and versed, the physician spent 45 minutes of continuous face to face time with the patient. Ultrasound of the neck reveals a patent and compressible right internal jugular vein. A applications engineer manufacturing radiograph reveals no gross abnormality right lung. The neck and anterior chest wall were anesthetized with lidocaine. The right internal jugular vein was accessed using a microintroducer needle under ultrasound guidance, via a lateral approach. An 018 wire was advanced into the superior vena cava, the needle was removed and a microsheath was placed. An Amplatz wire was then passed into the inferior vena cava. An incision at the internal jugular vein access site and anterior chest wall were made using a scalpel. An incision was made at the anterior chest wall. A small pocket was created using a combination of blunt and sharp dissection. A tunneling device was then used to pass the catheter from the pocket to the neck puncture site. An 8-[place] [employer] smart power port was then positioned in the pocket. The catheter was then measured and cut. The introducer sheath was exchanged for a peel-away sheath. The catheter was passed through the peel-away sheath into the internal jugular vein and the peel-away sheath was removed. The port tip was positioned at the cavoatrial junction. The port was then accessed with a Baldwin needle. The port flushes and aspirates well. The puncture site in the neck was closed. The chest wall incision was then closed with 2-0 Vicryl and 4-0 Monocryl. Glue and Steri-Strips were applied. A sterile dressing was then applied. The patient tolerated the procedure well and was returned to the PRU in stable condition. Estimated blood loss: <5 ml. Complications: None. Conclusion: 1. Successful placement of an 8-[place] [employer] smart power port via the right internal jugular vein. The port is ready for immediate use. 2. Patient to follow up in IR clinic in 2 weeks. Thank you for this referral. Electronically Signed by Caridad Singh MD 11/22/2019 02:22 P
[2019-11-22 15:35] VITALS: BP 116/72
== END ==
LOC: M IRPRO 12:31
PROVIDERS: ATTEND Radiology Diagnostic Radiology
DX: C34.90 Malignant neoplasm of unspecified part of unspecified bronchus or lung (principal); Z79.899 Other long term (current) drug therapy

== ENCOUNTER → 2019-12-05 | Outpatient (POV) | payer MEDICARE ==
[~2019-12-05] MED LIST changes: -LIDOCAINE 1% MDV 20ML VIAL As Ordered ONE; -MIDAZOLAM INJ 2 MG/2 ML VIAL (J2250) As Ordered ONE; +ONDA8TAB10; +PROC10TA4; -ceFAZolin 1GM VIAL (J0690 PER 500MG) As Ordered ONE; -diphenhydrAMINE 50MG/ML VIAL (J1200) As Ordered ONE; -fentaNYL 100 MCG/2 ML INJECTION (J3010) As Ordered ONE
--- NOTE | 2019-12-06 14:59 | IRPN ---
[facility] IR Progress Note IR Progress Note DATE: Dec 05, 2019 Teleconsult FOLLOW-UP: status post port placement. Patient states port is doing well. Port being accessed and used without issues. No pain, fevers, chills or discharge at site. ON EXAMINATION: Video conference available. Port site visualized. No redness or discharge. Site appears to be healing well. IMPRESSION: Doing well status post port placement. No further follow up scheduled unless initiated by patient and/or referring provider. Thank you for this referral Allergies Coded Allergies: No Known Allergies (Unverified , 09/18/19) SMITH GERONIMO MD Dec 06, 2019 14:59
== END ==
LOC: M TMIRPOV 14:17
PROVIDERS: ATTEND Radiology Diagnostic Radiology
DX: Z45.2 Encounter for adjustment and management of vascular access device (principal)

== ENCOUNTER → 2019-12-07 | Outpatient (RCR) | payer MEDICARE ==
--- NOTE | 2019-11-22 10:35 | RADONC ---
RADIATION ONCOLOGY SIMULATION NOTE DATE: 11/22/2019 CHART NUMBER: [id number] SIMULATION NOTE: Ms. Simmons was taken to the CT scan for CT simulation upper lung field. CT was accomplished without difficulty or discomfort. Radiation treatment planning is underway and radiation treatments will begin subsequently. An immobilization device was created without difficulty or discomfort. It will be used throughout the course of treatment. I was physically present throughout the course of CT simulation.
--- NOTE | 2019-12-05 08:28 | RADONC ---
RADIATION ONCOLOGY PROGRESS NOTE DATE: 12/04/2019 CHART NUMBER: [id number] PROGRESS NOTE: Ms. Simmons is presently at a dose of 540 cGy to her left lung and is tolerating treatments quite well at this point with no complaints related to her radiation therapy. She has no skin or other pains. REVIEW OF SYSTEMS: The patient's review of systems is noncontributory. Denies nausea, vomiting, fevers, chills, night sweats, diplopia, headaches, anxiety or depression, anorexia, weight loss, visual disturbances, chest pain, urinary or bowel difficulties, bone pain, or neurological problems. PHYSICAL EXAMINATION: The patient's skin is in good condition with no evidence of radiation change present. The remainder of her physical exam remains unchanged as well. Ms. Simmons is tolerating treatments quite well and radiation will continue as scheduled.
== END ==
LOC: M ONCR 11-22 10:17
PROVIDERS: ATTEND Radiology Radiation Oncology
DX: C34.12 Malignant neoplasm of upper lobe, left bronchus or lung (principal)

== ENCOUNTER 2020-01-05 13:08 | Outpatient (RCR) | payer MEDICARE ==
--- NOTE | 2019-12-14 09:16 | RADONC ---
RADIATION ONCOLOGY PROGRESS NOTE DATE: 12/11/2019 CHART NUMBER: [id number] PROGRESS NOTE: Ms. Simmons is as presently at a dose of 1440 cGy to her left lung and is tolerating treatments quite well at this point with no significant difficulties related to her radiation therapy other than some itchiness of the skin. REVIEW OF SYSTEMS: The patient's review of systems is positive for skin itchiness but is otherwise noncontributory. Denies nausea, vomiting, fevers, chills, night sweats, diplopia, headaches, anxiety or depression, anorexia, weight loss, visual disturbances, chest pain, urinary or bowel difficulties, bone pain, or neurological problems. PHYSICAL EXAMINATION: The patient's skin shows some erythema present but overall is in good condition with no evidence of moist or dry desquamation. The remainder of her physical exam remains unchanged. Ms. Simmons is tolerating treatments quite well and radiation will continue as scheduled. She has been given skin care instructions.
--- NOTE | 2019-12-20 00:04 | RADONC ---
RADIATION ONCOLOGY PROGRESS NOTE DATE: 12/19/2019 CHART NUMBER: [id number] Ms. Simmons is presently at a dose of 2340 cGy to her left lung and is tolerating treatments quite well at this point with no complaints related to her radiation therapy. She has no difficulty swallowing or breathing. REVIEW OF SYSTEMS: The patient's review of systems is noncontributory. She denies nausea, vomiting, fevers, chills, night sweats, diplopia, headaches, anxiety or depression, anorexia, weight loss, visual disturbances, chest pain, urinary or bowel difficulties, bone pain, or neurological problems. PHYSICAL EXAMINATION: The patient's skin shows some erythema on her chest but is otherwise within normal limits. There is no evidence of moist or dry desquamation. The remainder of her physical exam remains unchanged. Ms. Simmons is tolerating treatments quite well and radiation will continue as scheduled.
--- NOTE | 2019-12-27 14:15 | RADONC ---
RADIATION ONCOLOGY PROGRESS NOTE DATE: 12/25/2019 CHART NUMBER: [id number] PROGRESS NOTE: Ms. Simmons is presently at a dose of 2340 cGy to her left lung and is tolerating treatments quite well at this point with no significant difficulties related to her radiation therapy other than a sore throat. REVIEW OF SYSTEMS: The patient's review of systems is positive for sore throat/heartburn but is otherwise noncontributory. She denies nausea, vomiting, fevers, chills, night sweats, diplopia, headaches, anxiety or depression, anorexia, weight loss, visual disturbances, chest pain, urinary or bowel difficulties, bone pain, or neurological problems. PHYSICAL EXAMINATION: The patient's skin is in good condition with no evidence of moist or dry desquamation. The remainder of her physical exam remains unchanged. Ms. Simmons is tolerating treatments fairly well and radiation will continue as scheduled. I have sent in a prescription for Triple Mix Miracle Mouthwash.
[~2020-01-05 13:08] MED LIST changes: +SILV40CR EXT
--- NOTE | 2020-01-10 07:10 | RADONC ---
PROGRESS NOTE: DATE: 01/02/2020 CHART NUMBER: [id number] Ms. Simmons is presently at a dose of 4140 cGy to her left lung and is tolerating treatments quite well at this point with no significant difficulties related to her radiation therapy other than a continuous cough, which is nonproductive, as well as some tenderness of the skin over her back. The patient's review of systems is positive for a cough as well as skin tenderness but is otherwise noncontributory. On physical exam, the patient's skin shows erythema present over the back and front. Her physical exam is otherwise unchanged. ASSESSMENT: Ms. Simmons is tolerating treatments quite well, and radiation will continue as scheduled. I have recommended a cough suppressant and have sent in a prescription of Silvadene, as well. We will continue to follow her closely.
== END 2020-01-07 ==
LOC: M ONCR 13:08
PROVIDERS: ATTEND Radiology Radiation Oncology
DX: C34.12 Malignant neoplasm of upper lobe, left bronchus or lung (principal)

== ENCOUNTER → 2020-01-10 | Outpatient (REF) | payer MEDICARE | LOC: M LAB REF 08:08 | PROVIDERS: ATTEND Internal Medicine Infectious Disease | DX: B44.9 Aspergillosis, unspecified (principal) ==

== ENCOUNTER 2020-01-23 13:15 | Outpatient (RCR) | payer MEDICARE ==
--- NOTE | 2020-01-14 10:13 | RADONC ---
RADIATION ONCOLOGY PROGRESS NOTE DATE: 01/08/2020 CHART NUMBER: [id number] PROGRESS NOTE: Ms. Simmons is presently at a dose of 4860 cGy to her left lung and is tolerating treatments quite well at this point with no significant difficulties related to her radiation therapy other than a cough. She is taking cough medication. REVIEW OF SYSTEMS: The patient's review of systems is positive for cough but is otherwise noncontributory. She denies standard review of systems. Denies nausea, vomiting, fevers, chills, night sweats, diplopia, headaches, anxiety or depression, anorexia, weight loss, visual disturbances, chest pain, urinary or bowel difficulties, bone pain, or neurological problems. PHYSICAL EXAMINATION: The patient's skin is in good condition with some erythema and tanning present. There is no moist or dry desquamation. The remainder of her physical exam remains unchanged. Ms. Simmons tolerating treatments quite well and radiation will continue as scheduled.
--- NOTE | 2020-01-24 11:08 | RADONC ---
RADIATION ONCOLOGY PROGRESS NOTE DATE: 01/22/2020 CHART #: [id number] Ms. Simmons is presently at a dose of 6660 cGy to her left lung and is tolerating treatments quite well at this point with no significant difficulties related to her radiation therapy and some discomfort upon swallowing. REVIEW OF SYSTEMS: The patient's review of systems is positive for discomfort with swallowing, but is otherwise noncontributory. Denies nausea, vomiting, fevers, chills, night sweats, diplopia, headaches, anxiety or depression, anorexia, weight loss, visual disturbances, chest pain, urinary or bowel difficulties, bone pain, or neurological problems. PHYSICAL EXAMINATION: The patient's skin is in good condition with no evidence of moist or dry desquamation. The remainder of her physical exam remains unchanged. ASSESSMENT: The patient is tolerating treatments quite well and radiation is scheduled for completion tomorrow.
--- NOTE | 2020-01-25 11:13 | RADONC ---
RADIATION ONCOLOGY TREATMENT SUMMARY DATE: 01/23/2020 CHART NUMBER: [id number] DIAGNOSIS: Left lung cancer. STAGE: II B, T2b, N1, M0. ECOG PERFORMANCE STATUS: 0 FOLLOWUP NOTE: Ms. 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 We treated the patient to her left lung for a dose of 6840 cGy delivered in 38 fractions of 180 cGy each over 54 elapsed days from 11/30/2019 through 01/23/2020. The patient's left lung was treated on a linear accelerator utilizing a 3-D conformal technique with a 15 MV photon beam. Ms. Simmons tolerated her treatments quite well without significant difficulties and was able to complete therapy as prescribed. I have scheduled the patient to see me again in 1 month for further followup. She will also continue to be followed by her other physicians as well. cc: MD Eliezer Sanders MD Lawrence G. Kramer, MD [facility]
--- NOTE | 2020-02-06 13:46 | MEDONC ---
MEDICAL ONCOLOGY FOLLOWUP DATE OF SERVICE: 01/31/2020 DIAGNOSIS: Clinical TXN2M0, stage IIIA, left lung well to moderately differentiated adenocarcinoma, sulky driver mutation negative (ALK/ROS/BRAF/EGFR/PD-L1 negative). Referred for medical oncology management. CURRENT THERAPY: has completed concurrent chemoradiation, to begin durvalumab soon. TREATMENT HISTORY: Concurrent chemoradiation with carboplatin/pemetrexed 11/30/2019 - 01/23/2020. COMORBIDITY: Biopsy-proven pulmonary aspergillosis, on chronic antifungal treatment. Increased exertional dyspnea since completing chemoradiation. INTERVAL HISTORY: is here for followup. She completed her radiation last week. She acknowledges persistent exertional dyspnea but no worse. She denies hemoptysis. She denies fevers, chills, or new numbness, tingling, or pain. She has a little bit of fatigue but is getting out in the sun, not for very long but just a little, and enjoying the good weather. REVIEW OF SYSTEMS: Pertinent positives and negatives as noted above. VITAL SIGNS: Reviewed. Normal. BRIEF EXAMINATION: Distant but clear breath sounds throughout the lung peng bilaterally. No wheezes, rales. No pretracheal stridor. Cardiac: S1, S2, regular rate and rhythm. No murmur. No gallop. Abdomen: Soft, nontender, nondistended, no hepatosplenomegaly or masses. Extremities: No edema. No asymmetry. Lymph nodes: No submandibular, cervical, supraclavicular, or axillary adenopathy bilaterally. LABORATORIES: WBC 4.7, hemoglobin 10, hematocrit 32, platelets 327, MCV 98. Electrolytes largely unremarkable. Liver functions normal. Albumin 3. IMPRESSION: 74-year-old woman with unresectable stage IIIA, TxN2M0 moderate to well-differentiated adenocarcinoma, sulky driver mutation negative, with biopsy proven chronic pulmonary aspergillosis. Now status post complete definitive chemoradiation and a candidate for adjuvant durvalumab. I reviewed risks, benefits, and alternatives of adjuvant durvalumab including but not limited to autoimmune mediated hypophysitis, dermatitis, colitis, pneumonitis, pancreatitis, type 2 diabetes, thyroiditis, and other autoimmune adverse events. I reviewed typical ways treatment. signed written informed consent for treatment. PLAN: 1. Return to clinic to begin durvalumab q. 14 days for a planned total of 12 months' treatment. 2. Office visit on day 1, cycle two treatment. Labs each treatment day to include CBC, stat CMP, TSH, T4. 3. I informed of my impending departure. She will followup with her assigned medical oncologist. 4. I recommended new baseline CTs given her history of aspergillosis, though this will not reflect total radiation effect before . I will followup with her by telephone with results. Unreviewed DD: Megan Diez MD 01/31/2020 04:52 P DT: aml 02/06/2020 01:27 P CC: MD Georgina Bar MD Payam Hadian, MD
== END 2020-02-06 ==
LOC: M ONCR 13:15
PROVIDERS: ATTEND Radiology Radiation Oncology
DX: C34.12 Malignant neoplasm of upper lobe, left bronchus or lung (principal)

== ENCOUNTER → 2020-02-21 | Outpatient (CLI) | payer MEDICARE ==
[~2020-02-21] MED LIST changes: +AMLO1TAB24 PO; -AMLO5TAB6 PO; +AUGM500T34 PO; +CALC-212 PO; -CALC600T7 PO; +GUAI1SOL2 PO; +LIDO2.5C15 TOP; +MEDR4PAK PO; +PRED20TA PO; +ROSU20TA5 PO
== END ==
LOC: M ONCR 10:02
PROVIDERS: ATTEND Radiology Radiation Oncology
DX: C34.12 Malignant neoplasm of upper lobe, left bronchus or lung (principal); Z92.3 Personal history of irradiation

== ENCOUNTER 2020-02-28 12:02 | Inpatient (IN) | payer MEDICARE ==
[~2020-02-28] VITALS: Ht 157.5 cm; Wt 64.1 kg
[~2020-02-28 12:02] MED LIST changes: -PRED20TA PO; -ROSU20TA5 PO
[2020-02-28] MEDS ORDERED: SODIUM CHLORIDE 0.9% 1000ML IV SCH (12:45)
[2020-02-28] MEDS ORDERED: ACETAMINOPHEN 325 MG TAB PO ONE (12:45)
[2020-02-28] MEDS ORDERED: VANCOMYCIN HCL 1,000 MG in IV FLUID PLACE HOLDER 1 EA IV ONE (13:00)
[2020-02-28] MEDS ORDERED: cefTRIAXone SOD 1 GM in D5W MINI-BAG PLUS 50 ML IV ONE (13:00)
[2020-02-28] MEDS ORDERED: VANCOMYCIN HCL 1,000 MG, VIAL MATE ADAPTER 1 EACH in D5W 250 ML IV ONE (13:00)
[2020-02-28 13:01] LABS: ABG BASE EXCESS 0.9 (-2.0-2.0); ABG O2 SATURATION 92.7 % (95.0-99.0); ABG PARTIAL PRESSURE CO2 32.7 mmHg (35.0-45.0); ABG PARTIAL PRESSURE O2 60.9 mmHg (75.0-100.0); ABG STANDARD HCO3 25.2 MEQ/L (22.0-26.0); ABG pH (ARTERIAL) 7.484 UNITS (7.350-7.450)
[2020-02-28] MEDS ORDERED: ROSU20TA5 PO (13:11)
[2020-02-28 13:55] LABS: BASO % 0.2 % (0.0-1.0); HEMATOCRIT 26.9 % (36.0-47.0); HEMOGLOBIN 8.7 g/dl (12.0-15.5); LYMPH # 0.6 10^3/uL (1.5-5.0); LYMPH % 4.8 % (24.0-44.0); MEAN CORPUSCULAR HEMOGLOBIN 33.2 pg (27.0-33.0); MEAN CORPUSCULAR HGB CONC 32.3 g/dl (32.0-36.5); MEAN CORPUSCULAR VOLUME 102.7 fl (80.0-96.0); MONO # 1.6 10^3/uL (0.0-0.8); MONO % 13.1 % (0.0-5.0); NEUTROPHILS # 9.8 10^3/uL (1.5-8.5); NEUTROPHILS % 81.4 % (36.0-66.0); PLATELET COUNT, AUTOMATED 178 10^3/uL (150-450); RED BLOOD COUNT 2.62 10^6/uL (4.00-5.40)
[2020-02-28 14:20] LABS: ALBUMIN 2.5 GM/DL (3.2-5.2); BILIRUBIN,DIRECT 0.1 MG/DL (0.0-0.2); BILIRUBIN,TOTAL 0.4 MG/DL (0.2-1.0); CALCIUM LEVEL 7.8 MG/DL (8.8-10.2); CREATININE FOR GFR 1.11 MG/DL (0.55-1.30); GLOMERULAR FILTRATION RATE 51.2 (>39); POTASSIUM SERUM 4.3 MEQ/L (3.5-5.1); TOTAL PROTEIN 5.9 GM/DL (6.4-8.2)
--- NOTE | 2020-02-28 15:23 | REP ---
PORTABLE CHEST X-RAY: Single view. HISTORY: Fever. COMPARISON CHEST X-RAY: 08/31/2019 and 05/01/2019. FINDINGS: There is a large somewhat nodular opacity in the left upper lobe. This is improved from the most recent prior study of 08/31/2019. There is a 2.9 cm nodular area within this left upper lobe opacity. No other evidence of infiltrate is seen. The patient is status post radiation therapy for lung carcinoma on the left. There is a right-sided Glvigb-M-Qvff catheter noted in place with its tip in the expected location of the superior vena cava. A prosthetic right shoulder joint is seen. Heart is not enlarged. IMPRESSION: Right-sided Gdnffy-P-Lglu. Fairly large nodular opacity left upper lobe improved from 08/31/2019. No other definite infiltrate. Electronically Signed by Marino Ansari MD 02/28/2020 04:41 P
[2020-02-28] MEDS ORDERED: ALBUTEROL 90 MCG/ACT 8GM HFA INHALER INH PRN (16:00)
[2020-02-28] MEDS ORDERED: AMITRIPTYLINE 50 MG TAB PO PRN (16:00)
[2020-02-28] MEDS ORDERED: MIRALAX *UNIT DOSE* 17GM PACKET PO PRN (16:00)
[2020-02-28] MEDS ORDERED: ISOVUE-370 76% 100ML VIAL As Ordered ONE (16:54)
--- NOTE | 2020-02-28 17:40 | REPVR ---
PROCEDURE INFORMATION: Exam: CT Chest With Contrast Exam date and time: 02/28/2020 5:11 PM Age: 74 years old Clinical indication: Chest pain; Additional info: Pneumonia TECHNIQUE: Imaging protocol: Computed tomography of the chest with intravenous contrast. 3D rendering (Not supervised by radiologist): MIP and/or 3D reconstructed images were created by the technologist. Radiation optimization: All CT scans at this facility use at least one of these dose optimization techniques: automated exposure control; mA and/or kV adjustment per patient size (includes targeted exams where dose is matched to clinical indication); or iterative reconstruction. Contrast material: ISO 370; Contrast volume: 75 ml; Contrast route: INTRAVENOUS (IV); COMPARISON: CT Chest without contrast 10/13/2019 9:09 AM FINDINGS: Lungs: Moderate to severe centrilobular and paraseptal emphysema most pronounced in the mid and upper lung zones. Previously demonstrated wedge-shaped infiltrate in the left anterior pulmonary apex as resolved. There is now a spiculated masslike density demonstrated in the left upper lobe bridging anterior and posterior segments measuring 3.5 x 5.2 x 3 cm, extending from the right suprahilar region to the lateral pleural margin in the left lung apex. Coarse infiltrates surround the lesion. The anterior and posterior segmental bronchi in the left upper lobe are patent although the apical bronchus appears to be obliterated with associated volume loss in the left upper lobe. Soft tissue windows demonstrate a heterogeneous enhancement within the opacity suggesting neoplasm rather than infiltrate, likely associated with a surrounding infectious infiltrate. Stable calcified granuloma right lower lobe. Interval development of a linear spiculated opacity which appears to extend from a distal airway to the right lateral pleural margin consistent with peripheral airway disease and/or fibrotic change. Finding not demonstrated previously. Well inflated lungs consistent with COPD. Pleural space: Unremarkable. No pneumothorax. No pleural effusion. Heart: Unremarkable. No cardiomegaly. No pericardial effusion. Pulmonary arteries: There is enlargement of the central pulmonary arteries, findings which can be associated with pulmonary arterial hypertension which should be correlated clinically. Aorta: The aorta demonstrates mild atherosclerotic calcification. Lymph nodes: Numerous mediastinal lymph nodes measure up to 1.1 cm in the lateral AP window either neoplastic or postinflammatory. Liver: There is a diffuse decrease in hepatic parenchymal density, consistent with steatosis. Bones/joints: Status post right shoulder arthroplasty. The spine demonstrates mild degenerative changes. Shallow levoscoliosis. Soft tissues: Unremarkable. IMPRESSION: 1. Moderate to severe centrilobular and paraseptal emphysema most pronounced in the mid and upper lung zones. 2. Interval development of a spiculated mass in the left upper lobe as described above worrisome for neoplasm likely associated with surrounding postobstructive infiltrate. 3. Stable calcified granuloma right lower lobe. Interval development of a linear spiculated opacity which appears to extend from a distal airway to the right lateral pleural margin consistent with peripheral airway disease and/or fibrotic change. Finding not demonstrated previously. 4. Numerous mediastinal lymph nodes measure up to 1.1 cm in the lateral AP window either neoplastic or postinflammatory. 5. There is enlargement of the central pulmonary arteries, findings which can be associated with pulmonary arterial hypertension which should be correlated clinically. 6. Well inflated lungs consistent with COPD. Electronically signed by: Carlitos Anderson On 02/28/2020 17:40:21 PM
[2020-02-28] MEDS ORDERED: MAALOX 30 ML SUSP *UDC PO PRN (17:45)
[2020-02-28] MEDS ORDERED: MOM 30ML SUSPENSION UDC PO PRN (17:45)
[2020-02-28] MEDS ORDERED: DOXYCYCLINE HYCLATE 100 MG in D5W MINI-BAG PLUS 100 ML IV ONE (18:00)
[2020-02-28] MEDS: NS 1,000 ML IV SCH (18:50)
--- NOTE | 2020-02-28 19:03 | HPEPDOC ---
[facility] Medical History & Physical Date of Admission Feb 28, 2020 Date of Service: Feb 28, 2020 Attending Physician: ADDI JENNINGS DO History and Physical CHIEF COMPLAINT: Fever, cough and shortness of breath. HISTORY OF PRESENT ILLNESS: Ms. 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 Intermittent fevers since 4-5 days. She reports loss of appetite, loss of weight 12-14 Lbs. in last 2 months. Addendum: Patient is currently undergoing immunotherapy, her last chemotherapy was on January 30, her last radiation was on January 21. She had an Cjlozv-N-ojgc in place for chemotherapy since August 2019. PAST MEDICAL HISTORY: 1. Advance lung adenocarcinoma. 2. Hypertension 3. Dyslipidemia 4. Emphysema 5. Osteoporosis 6. GERD 7. Pulmonary aspergilloma. 8. Insomnia 9. Constipation PAST SURGICAL HISTORY: 1. Tonsillectomy 2. Appendectomy 3. Hysterectomy. 4. Partial right knee replacement. 5. Shoulder replacement. 6. Rotator cuff repair. SOCIAL HISTORY: Resides in: Lives by herself Tobacco use: Quit 5 years ago, smoked since 14 years of age, one pack per day. ETOH: Social drinker Illicit drug use: Denies Tattoos done unprofessionally: Denies IV drug use: Denies FAMILY HISTORY: Father: of stroke at age 72. Mother: of heart attack at age 45 Siblings: Sister: of heart attacks at age 65, younger brother: of heart attack at age 47. Children: 2 daughters and a son ALLERGIES: Please see below. REVIEW OF SYSTEMS: Constitutional: fever since 4-5days weight loss of 12-14 lbs in last couple of months, denies chills, night sweats. Eyes: Denies any blurry vision or double vision. ENT: Denies any dysphagia, odynophagia, ear discharge, sore throat. Cardiovascular: No chest pain, palpitations, orthopnea/PND. Respiratory: Reports having shortness of breath, cough, pleuritic chest pain on coughing. Gastrointestinal (GI): Denies any nausea, vomiting, diarrhea, melena, hematoc hezia. Patient reports having constipation and her last bowel movement was couple of days ago. Genitourinary: Denies dysuria, hematuria. Musculoskeletal: Denies any muscle pains or joint aches. Skin: Denies unsual rashes or ulcers. Hematology/Oncology: Denies any easy bleeding or bruising. Endocrine: Denies cold intolerance, heat intolerance, polydipsia, polyphagia, polyuria HOME MEDICATIONS: Please see below. PHYSICAL EXAMINATION: General: Patient is awake, alert, oriented times three, sitting in bed , no apparent distress, she is on 1 L nasal cannula. Eyes: Conjunctiva clear, pupils equal round and reactive to light and accommodation. EOM full, Fundus: not visualized. ENT: Hearing Bilateral normal. No nasal deviation, niels-pharynx clear with no lesions/erythema. Neck: supple, no masses, trachea midline, no thyroid nodules, masses, tenderness or enlargement. Cardiovascular: S1, S2, normal rhythm, no murmur, rub, or gallop. Pulses: pedal 3+ symmetric, no edema. Respiratory: Chest is clear to auscultation bilaterally, No rhonchi, wheezes or rubs. Abdomen: Soft, bowel sounds positive, no bruits. No tenderness on palpation. Liver edge, spleen, kidney not felt, no masses. Extremities: No clubbing or cyanosis. No edema, no tenderness. Spine: No kyphosis, no para-spinal tenderness, no costovertebral tenderness. 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 Skin: No rashes, lesions, ulcerations, subcutaneous nodules or induration. LABORATORY DATA: See below. IMAGING: Chest x-ray: Right-sided Nooyfd-L-Juhw. Fairly large nodular opacity left upper lobe improved from 08/31/2019. No other definite infiltrate. MICROBIOLOGY: Please see below. ASSESSMENT: Patient is a 74-year-old female with past medical history of advanced adenocarcinoma of lung, status post chemotherapy and radiation, currently on immunotherapy, hypertension, dyslipidemia who presented to the emergency department with 3 days of cough, 4-5 days of fever, and shortness of breath. . PLAN: 1. Dyspnea: - Likely due to pneumonia, as patient is immunocompromised. Patient is on 1 L of nasal cannula. 2. Comminuted acquired pneumonia: History of adenocarcinoma, patient is on immunotherapy, Status post chemotherapy and radiation therapy. She got a dose of Augmentin yesterday [Prescribed by oncology]. Will get blood cultures, urine cultures. We will get cultures from her Uwwjek-y-Kpev. She got a dose of vancomycin 1000 MG and ceftriaxone 1 g in the ED. Will give her on IV fluids 125mls/hr. Started on ceftriaxone 2 g and doxycycline 100 mg.[Will titrate based on her cultures] Will get a CT chest as chest x-ray is negative. 3. Sepsis: Meets 4/4 SIRS criteria on admission with fever, elevated WBC count, tachypnea, hypotension IV fluids 125mls/hr. Started on ceftriaxone 2 g and doxycycline 100 mg.[Will de-escalate based on her cultures] 4. History of adenocarcinoma - patient is on immunotherapy, Status post chemotherapy and radiation therapy. 5. Pulmonary aspergilloma: - Patient follows with Dr. Falherty and on voriconazole [for 12 month] started in July 2019. 6. Hypertension: Hold her home medication, as patient came in hypotensive. 7. Constipation: Will give her milk of magnesia, Colace and senna. 8. COPD, emphysema: Continue home medication [albuterol] 9. Insomnia: Continue home medication [amitriptyline] 10. GERD: - Continue home medication [omeprazole]. DVT prophylaxis: Lovenox 40 MG. Disposition: Patient is admitted to Med/Surg unit pending clinical improvement *Note written by Beth Zimmer MD and reviewed. Vital Signs Vital Signs Date Time Temp Pulse Resp B/P (MAP) Pulse Ox O2 Delivery O2 Flow Rate FiO2 02/28/20 18:31 87 98 02/28/20 17:49 18 100/60 (73) Room Air 02/28/20 16:46 99.0 02/28/20 15:45 1.0 Laboratory Data Labs 24H Laboratory Tests 2 02/28/20 12:52: Blood Gas Bicarbonate Standard 25.2, Arterial Blood pH 7.484H, Arterial Blood Partial Pressure CO2 32.7L, Arterial Blood Partial Pressure O2 60.9L, Arterial Blood Total CO2 25.0, Arterial Blood HCO3 24.0, Arterial Blood Base Excess 0.9, Arterial Blood Oxygen Saturation 92.7L 02/28/20 13:40: Immature Granulocyte % (Auto) 0.5, Neutrophils (%) (Auto) 81.4H, Lymphocytes (%) (Auto) 4.8L, Monocytes (%) (Auto) 13.1H, Eosinophils (%) (Auto) 0.0, Basophils (%) (Auto) 0.2, Neutrophils # (Auto) 9.8H, Lymphocytes # (Auto) 0.6L, Monocytes # (Auto) 1.6H, Eosinophils # (Auto) 0.0, Basophils # (Auto) 0.0, Nucleated Red Blood Cells % (auto) 0.0, Anion Gap 7L, Glomerular Filtration Rate 51.2, Lactic Acid Level 1.0, Calcium Level 7.8L, Total Bilirubin 0.4, Direct Bilirubin 0.1, Aspartate Amino Transf (AST/SGOT) 18, Alanine Aminotransferase (ALT/SGPT) 9L, Alkaline Phosphatase 69, Total Protein 5.9L, Albumin 2.5L, Albumin/Globulin Ratio 0.7L 02/28/20 14:14: Urine Color VERÓNICA, Urine Appearance CLOUDYH, Urine pH 5.0, Urine Specific [place] 1.023, Urine Protein 2+H, Urine Glucose (UA) NEGATIVE, Urine Ketones TRACEH, Urine Blood 1+H, Urine Nitrite NEGATIVE, Urine Bilirubin NEGATIVE, Urine Urobilinogen 4.0H, Urine Leukocyte Esterase NEGATIVE, Urine WBC (Auto) 13H, Uri ne RBC (Auto) 3, Urine Hyaline Casts (Auto) 4, Urine Bacteria (Auto) NEGATIVE, Urine Squamous Epithelial Cells 2, Urine Mucus (Auto) SMALL, Urine Sperm (Auto) CBC/BMP Laboratory Tests 02/28/20 13:40 Microbiology Microbiology 02/28/20 Blood Culture, Received Pending 02/28/20 Blood Culture, Received Pending 02/28/20 Urine Culture, Received Pending 02/28/20 Respiratory Virus Panel (PCR) ([facility]) - Final, Complete 02/28/20 Blood Culture, Received Pending 02/28/20 Blood Culture, Received Pending Home Medications Scheduled Amoxicillin/Potassium Clav (Augmentin 500-125 Tablet) 1 Each Tablet, 500 MG PO TID Calcium Carbonate/Vitamin D3 (Calcium 600 with Vit D Chew Tb) 1 Each Tab.chew, 1 CHW PO DAILY Docusate Sodium (Docusate Sodium) 100 Mg Capsule, 100 MG PO BID Fluticasone/Vilanterol (Breo Ellipta 200-25 Mcg INH) 1 Each Blst.w.dev, 1 PUFF INH DAILY Lidocaine/Prilocaine (Lidocaine-Prilocaine Cream) 2.5%/2.5% Cream..g., 1 APLCT TOP ASDIRECTED APPLY A DIME SIZED AMOUNT TO YOUR PORT APPROX. 1 Hr prior to APPT. COVER WITH CLING WRAP TO PROTECT YOUR CLOTHING. Losartan Potassium (Losartan Potassium) 100 Mg Tablet, 100 MG PO QHS Omeprazole (Omeprazole) 40 Mg Cap, 40 MG PO BID Rosuvastatin Calcium (Rosuvastatin Calcium) 20 Mg Tablet, 20 MG PO QHS Sennosides (Senna) 8.6 Mg Tablet, 8.6 MG PO BID Voriconazole (Vfend) 200 Mg Tablet, 200 MG PO DAILY Scheduled PRN Albuterol Sulfate (Proair Hfa) 8.5 Gm Hfa.aer.ad, 2 PUFF INH Q6HP PRN for SOB/WHEEZING Amitriptyline HCl (Amitriptyline HCl) 50 Mg Tab, 50 MG PO QHSP PRN for SLEEP Codeine Phosphate/Guaifenesin (Codeine-Guaifen 10-100 mg/5 ml) 120 Ml Liquid, 5 ML PO Q6HP PRN for cough and congestion Polyethylene Glycol 3350 (Miralax) 119 Gm Powder, 17 GM PO DAILY PRN for CONSTIPATION dilute in 8 ounces of water or juice Allergies Coded Allergies: No Known Allergies (Unverified , 02/28/20) RONEN HAYS D.O. Feb 28, 2020 19:03
[2020-02-28] MEDS ORDERED: LOSARTAN 50MG TABLET PO SCH (21:00)
[2020-02-28] MEDS: DOCUSATE SODIUM 100 MG CAP PO SCH (22:11)
[2020-02-28] MEDS: OMEPRAZOLE 20 MG CAP PO SCH (22:12)
[2020-02-28] MEDS: SENNA 8.6 MG TAB (SENOKOT) PO SCH (22:12)
[2020-02-29] MEDS: guaiFENesin/CODEINE SYRUP 5 ML UDC PO PRN ×2 (02:00→09:11)
[2020-02-29] MEDS ORDERED: cefTRIAXone SOD 2 GM in D5W MINI-BAG PLUS 50 ML IV SCH (02:00)
[2020-02-29] MEDS: ACETAMINOPHEN TAB 650MG DOSE (2X325MG) PO PRN ×2 (02:05→09:11)
[2020-02-29] MEDS: NS 1,000 ML IV SCH ×2 (05:12→09:45)
[2020-02-29] MEDS ORDERED: DOXYCYCLINE HYCLATE 100 MG in D5W MINI-BAG PLUS 100 ML IV SCH (06:00)
[2020-02-29 06:47] LABS: BASO % 0.1 % (0.0-1.0); EOS % 0.2 % (0.0-3.0); HEMOGLOBIN 8.4 g/dl (12.0-15.5); LYMPH # 0.4 10^3/uL (1.5-5.0); LYMPH % 3.9 % (24.0-44.0); MEAN CORPUSCULAR HEMOGLOBIN 32.8 pg (27.0-33.0); MEAN CORPUSCULAR HGB CONC 32.3 g/dl (32.0-36.5); MEAN CORPUSCULAR VOLUME 101.6 fl (80.0-96.0); MONO % 9.9 % (0.0-5.0); NEUTROPHILS # 8.5 10^3/uL (1.5-8.5); NEUTROPHILS % 85.4 % (36.0-66.0); PLATELET COUNT, AUTOMATED 174 10^3/uL (150-450); RED BLOOD COUNT 2.56 10^6/uL (4.00-5.40)
[2020-02-29 07:03] LABS: BLOOD UREA NITROGEN 8 MG/DL (7-18); CARBON DIOXIDE LEVEL 25 MEQ/L (21-32); CHLORIDE LEVEL 104 MEQ/L (98-107); CREATININE FOR GFR 0.66 MG/DL (0.55-1.30); GLOMERULAR FILTRATION RATE > 60.0 (>39); GLUCOSE, FASTING 109 MG/DL (70-100); MAGNESIUM LEVEL 1.7 MG/DL (1.8-2.4); POTASSIUM SERUM 3.6 MEQ/L (3.5-5.1); SODIUM LEVEL 135 MEQ/L (136-145)
[2020-02-29 09:00] VITALS: BP 118/74
[2020-02-29] MEDS ORDERED: ENOXAPARIN 40MG/0.4ML SYRINGE (J1650 PER 10MG) SC SCH (09:00)
[2020-02-29] MEDS ORDERED: VORICONAZOLE 200MG TABLET (VFEND) PO SCH (09:00)
[2020-02-29] MEDS: OMEPRAZOLE 20 MG CAP PO SCH (09:08)
[2020-02-29] MEDS: SENNA 8.6 MG TAB (SENOKOT) PO SCH (09:08)
[2020-02-29] MEDS: DOCUSATE SODIUM 100 MG CAP PO SCH (09:09)
[2020-03-02] MEDS ORDERED: DOXYCYCLINE HYCLATE 100MG/10ML VIAL ONE ×2 (01:54→09:34)
[2020-03-02] MEDS ORDERED: ACETAMINOPHEN TAB 650MG DOSE (2X325MG) ONE ×4 (01:54→11:30)
[2020-03-02] MEDS ORDERED: guaiFENesin SYRUP 200 MG/10 ML UDC ONE ×3 (01:54→09:34)
[2020-03-02] MEDS ORDERED: DOCUSATE SODIUM 100 MG CAP ONE ×2 (03:52→09:13)
[2020-03-02] MEDS ORDERED: OMEPRAZOLE 20 MG CAP ONE ×2 (03:52→09:13)
[2020-03-02] MEDS ORDERED: SENNA 8.6 MG TAB (SENOKOT) ONE ×2 (03:52→09:13)
[2020-03-02] MEDS ORDERED: VORICONAZOLE 200MG TABLET (VFEND) ONE ×3 (09:13→11:30)
[2020-03-02] MEDS ORDERED: ENOXAPARIN 40MG/0.4ML SYRINGE (J1650 PER 10MG) ONE (09:13)
[2020-03-02] MEDS ORDERED: MAGNESIUM GLUCONATE 500 MG TAB ONE ×3 (09:13→11:30)
[2020-03-02] MEDS ORDERED: cefTRIAXone SOD 2 GM VIAL (J0696 PER 250MG) ONE (11:30)
[2020-03-03] MEDS ORDERED: cefTRIAXone SOD 2 GM VIAL (J0696 PER 250MG) ONE (01:46)
[2020-03-03] MEDS ORDERED: DOXYCYCLINE HYCLATE 100MG/10ML VIAL ONE (05:40)
[2020-03-03] MEDS ORDERED: ACETAMINOPHEN TAB 650MG DOSE (2X325MG) ONE (07:11)
[2020-03-03] MEDS ORDERED: ENOXAPARIN 40MG/0.4ML SYRINGE (J1650 PER 10MG) ONE (09:18)
[2020-03-03] MEDS ORDERED: guaiFENesin/CODEINE SYRUP 5 ML UDC ONE (09:18)
[2020-03-03] MEDS ORDERED: VORICONAZOLE 200MG TABLET (VFEND) ONE (09:18)
[2020-03-03] MEDS ORDERED: OMEPRAZOLE 20 MG CAP ONE (09:18)
[2020-03-03] MEDS ORDERED: DOCUSATE SODIUM 100 MG CAP ONE (09:18)
[2020-03-03] MEDS ORDERED: MAGNESIUM GLUCONATE 500 MG TAB ONE (09:18)
[2020-03-03] MEDS ORDERED: SENNA 8.6 MG TAB (SENOKOT) ONE (09:18)
[2020-04-10 11:39] LABS: HEMATOCRIT 24.2 % (36.0-47.0); HEMOGLOBIN 7.8 g/dl (12.0-15.5); MEAN CORPUSCULAR HEMOGLOBIN 33.1 pg (27.0-33.0); MEAN CORPUSCULAR HGB CONC 32.2 g/dl (32.0-36.5); MEAN CORPUSCULAR VOLUME 102.5 fl (80.0-96.0); PLATELET COUNT, AUTOMATED 296 10^3/uL (150-450); RED BLOOD COUNT 2.36 10^6/uL (4.00-5.40)
[2020-04-16 12:19] LABS: BLOOD UREA NITROGEN 7 MG/DL (7-18); CARBON DIOXIDE LEVEL 30 mmol/L (20-29); CHLORIDE LEVEL 105 MEQ/L (98-107); CREATININE FOR GFR 0.53 MG/DL (0.55-1.30); GLOMERULAR FILTRATION RATE > 60.0 (>39); GLUCOSE, FASTING 103 MG/DL (70-100); POTASSIUM SERUM 3.4 MEQ/L (3.5-5.1); SODIUM LEVEL 142 MEQ/L (136-145)
[2020-04-16 12:20] LABS: CALCIUM LEVEL 8.1 MG/DL (8.8-10.2)
[2020-06-06 22:10] LABS: HEMATOCRIT 24.6 % (36.0-47.0); HEMOGLOBIN 7.9 g/dl (12.0-15.5); RED BLOOD COUNT 2.41 10^6/uL (4.00-5.40); WHITE BLOOD COUNT 6.6 10^3/uL (4.0-10.0)
[2020-06-06 22:11] LABS: BASO % 0.2 % (0.0-1.0); EOS % 0.3 % (0.0-3.0); LYMPH # 0.4 10^3/uL (1.5-5.0); LYMPH % 6.7 % (24.0-44.0); MEAN CORPUSCULAR HEMOGLOBIN 32.8 pg (27.0-33.0); MEAN CORPUSCULAR HGB CONC 32.1 g/dl (32.0-36.5); MEAN CORPUSCULAR VOLUME 102.1 fl (80.0-96.0); MONO # 0.7 10^3/uL (0.0-0.8); MONO % 9.9 % (0.0-5.0); NEUTROPHILS # 5.4 10^3/uL (1.5-8.5); NEUTROPHILS % 82.4 % (36.0-66.0); PLATELET COUNT, AUTOMATED 252 10^3/uL (150-450)
[2020-06-19] MEDS ORDERED: PRED20TA PO (12:50)
== END 2020-03-03 12:18 | disposition home or self-care (01) | DRG 871 ==
LOC: M ED 12:02 → M ED INP 15:45 → ENRESERV 18:29 → M MSPAV 02-29 12:30
PROVIDERS: ADMIT Internal Medicine; ATTEND Internal Medicine
DX: A41.9 Sepsis, unspecified organism (principal); J18.9 Pneumonia, unspecified organism; B44.1 Other pulmonary aspergillosis; I10 Essential (primary) hypertension; E78.5 Hyperlipidemia, unspecified; J43.9 Emphysema, unspecified; K21.9 Gastro-esophageal reflux disease without esophagitis; M81.0 Age-related osteoporosis without current pathological fracture; G47.00 Insomnia, unspecified; K59.00 Constipation, unspecified; Z87.891 Personal history of nicotine dependence; Z85.118 Personal history of other malignant neoplasm of bronchus and lung; Z79.899 Other long term (current) drug therapy

== ENCOUNTER → 2020-03-13 | Outpatient (REF) | payer MEDICARE ==
[~2020-03-13] MED LIST changes: +PRED20TA PO; +ROSU20TA5 PO
[2020-04-27 12:42] LABS: BLOOD UREA NITROGEN 8 MG/DL (7-18); CREATININE FOR GFR 0.57 MG/DL (0.55-1.30); GLOMERULAR FILTRATION RATE > 60.0 (>39)
== END ==
LOC: M LAB REF 08:58
PROVIDERS: ATTEND Internal Medicine Pulmonary Disease
DX: R91.8 Other nonspecific abnormal finding of lung field (principal)

== ENCOUNTER → 2020-03-15 | Outpatient (REF) | payer MEDICARE | LOC: M LAB REF 15:33 | PROVIDERS: ATTEND Internal Medicine Pulmonary Disease | DX: R91.8 Other nonspecific abnormal finding of lung field (principal) ==

== ENCOUNTER → 2020-04-09 | Outpatient (CLI) | payer MEDICARE ==
--- NOTE | 2020-04-25 11:19 | REP ---
NON-CONTRAST CHEST CT DATE: 04/09/2020 at 01:41 p.m. CLINICAL: Followup abnormal lung findings and malignancy. TECHNIQUE: Axial, non-contrast images from the thoracic inlet to the upper abdomen with coronal and sagittal reformations. COMPARISON: 02/28/2020, 04/28/2019. FINDINGS: There is a consolidation/mass involving the left upper lobe measuring greater than 4.2 x 2.1 x 1.7 cm. Extensive bilateral emphysematous disease and scattered bronchiectasis and scarring again noted and similar to prior examination. No significant effusion. No pneumothorax. Adenopathy cannot be excluded. Further evaluation of the mediastinum demonstrates atherosclerotic changes to the thoracic aorta and coronary arteries without aortic aneurysm or cardiomegaly. No pericardiac effusion. Musculoskeletal structures demonstrate degenerative changes without acute osseous abnormality. [id number] identified with tip in the SVC. IMPRESSION: 1. Left upper lobe consolidation/mass consistent with malignancy as mentioned above. 2. Advanced diffuse emphysematous disease. MTDD
== END ==
LOC: M RAD 13:24
PROVIDERS: ATTEND Internal Medicine Pulmonary Disease
DX: R91.8 Other nonspecific abnormal finding of lung field (principal); C34.12 Malignant neoplasm of upper lobe, left bronchus or lung; J43.9 Emphysema, unspecified; I70.0 Atherosclerosis of aorta; I25.10 Atherosclerotic heart disease of native coronary artery without angina pectoris

== ENCOUNTER → 2020-04-30 | Outpatient (CLI) | payer MEDICARE ==
--- NOTE | 2020-05-09 11:36 | REP ---
PET CT HISTORY: Other nonspecific abnormal finding of lung field. There is a history of left upper lobe anterior segment adenocarcinoma stage IIIA. Treated with concomitant chemoradiation. There is a history of pulmonary aspergilloma in the same location anterior to the location of the tumor status post antifungal therapy. Recent chest CT study from 04/09/2020, described a 4.3 x 2.1 cm elongate mass lesion in the left upper lobe region. TECHNIQUE: 48 minutes following the intravenous injection of an 8.3 mCi dose of F18 fluorodeoxyglucose (FDG), three-dimensional PET CT imaging is acquired from the skull base to the proximal thighs. PET CT FINDINGS: Head and neck soft tissues are unremarkable. There is periarticular uptake associated with right shoulder arthroplasty. The left upper lobe is actually better inflated than it was at the time of the previous PET CT study from 10/30/2019. The oval-shaped opacity in the left upper lobe seen on recent chest CT study shows mildly hypermetabolic uptake. Maximum standard uptake value within this opacity is 4.11. The area of most avid uptake within this opacity is along its posterior margin. There is a new area of increased uptake at the level of the aortic arch posteriorly in the left upper lobe, which was not apparent previously and which corresponds with an area of consolidation. Maximum standard uptake value within this focus is 6.82. In addition, there is multifocal parenchymal uptake and parenchymal opacification elsewhere in the left upper lobe and in the left lower lobe posteriorly. These opacities are a change from the comparison CT study of 04/09/2020 and are most compatible with inflammatory disease or pneumonia. In particular, there is opacification in the left lower lobe posteriorly where a maximum standard uptake value is 6.12. The new parenchymal opacities and their corresponding areas of increased uptake are felt to be most compatible with inflammatory disease. The mass-like opacity and its associated uptake is nonspecific and may be due to residual or recurrent neoplasm versus inflammation associated with fungal disease and/or postradiation pneumonitis. There is no abnormal hypermetabolic uptake in the abdomen or pelvis. The PET CT images are otherwise unremarkable. IMPRESSION: Complex pattern of increased uptake and new parenchymal opacities in the left chest. New opacities and areas of increased uptake consistent with pneumonia and inflammatory disease. Nonspecific uptake pattern in the left upper lobe mass, tumor, inflammation associated with the patients fungal disease, and/or postradiation pneumonitis could produce these findings. There is no evidence of distant metastatic disease. MTDD
== END ==
LOC: M PLARAD 13:14
PROVIDERS: ATTEND Internal Medicine Pulmonary Disease
DX: R91.8 Other nonspecific abnormal finding of lung field (principal)
CPT/HCPCS: 78815; A9552

== ENCOUNTER → 2020-07-02 | Outpatient (REF) | payer MEDICARE ==
[2020-07-02 12:00] LABS: BASO % 0.2 % (0.0-1.0); EOS % 0.1 % (0.0-3.0); HEMATOCRIT 39.8 % (36.0-47.0); HEMOGLOBIN 12.3 g/dl (12.0-15.5); LYMPH # 0.3 10^3/uL (1.5-5.0); LYMPH % 3.1 % (24.0-44.0); MEAN CORPUSCULAR HEMOGLOBIN 26.1 pg (27.0-33.0); MEAN CORPUSCULAR HGB CONC 30.9 g/dl (32.0-36.5); MEAN CORPUSCULAR VOLUME 84.3 fl (80.0-96.0); MONO # 0.5 10^3/uL (0.0-0.8); MONO % 4.9 % (0.0-5.0); NEUTROPHILS # 8.4 10^3/uL (1.5-8.5); NEUTROPHILS % 91.3 % (36.0-66.0); PLATELET COUNT, AUTOMATED 270 10^3/uL (150-450); RED BLOOD COUNT 4.72 10^6/uL (4.00-5.40); WHITE BLOOD COUNT 9.2 10^3/uL (4.0-10.0)
[2020-07-02 12:26] LABS: ALBUMIN 3.5 GM/DL (3.2-5.2); ALT/SGPT 13 U/L (12-78); BILIRUBIN,TOTAL 0.3 MG/DL (0.2-1.0); BLOOD UREA NITROGEN 16 MG/DL (7-18); C REACTIVE PROTEIN QUANTITATIV 2.18 MG/DL (0.00-0.30); CALCIUM LEVEL 9.7 MG/DL (8.8-10.2); CARBON DIOXIDE LEVEL 27 MEQ/L (21-32); CHLORIDE LEVEL 102 MEQ/L (98-107); CREATININE FOR GFR 0.86 MG/DL (0.55-1.30); GLOMERULAR FILTRATION RATE > 60.0 (>39); GLUCOSE, FASTING 131 MG/DL (70-100); SODIUM LEVEL 138 MEQ/L (136-145); TOTAL PROTEIN 6.9 GM/DL (6.4-8.2)
== END ==
LOC: M LAB REF 11:07
PROVIDERS: ATTEND Internal Medicine Infectious Disease
DX: B44.9 Aspergillosis, unspecified (principal)

== ENCOUNTER → 2020-07-09 | Outpatient (CLI) | payer MEDICARE ==
--- NOTE | 2020-07-09 09:22 | REP ---
INDICATION: ACUTE PULMONARY MANIFESTATIONS DUE TO RADIATION COMPARISON: 04/09/2020 TECHNIQUE: Axial noncontrast images from the thoracic inlet to the upper abdomen with coronal and sagittal reformations. This CT examination was performed using the following dose reduction techniques: Automated exposure control, adjustment of mA and/or kv according to the patient's size, and use of iterative reconstruction technique. FINDINGS: Current examination demonstrates a small/moderate left hydropneumothorax as well as new somewhat irregular areas of consolidation in the left upper lobe and left lower lobe which were not present on prior examination. The previously noted mass like consolidation in the left upper lobe on 04/09/2020 appears slightly decreased in size. Underlying advanced emphysematous disease with scattered fibrosis/scarring and bronchiectasis remains unchanged. No obvious significant adenopathy is identified. Further evaluation of the mediastinum demonstrates stable atherosclerotic changes to the thoracic aorta and coronary arteries without cardiomegaly. Small amount of pericardial fluid may be slightly increased from prior exam. Surrounding musculoskeletal structures demonstrate age-related changes without acute osseous abnormality. Rgoewd-J-Racu identified with tip extending into the SVC/right atrium. IMPRESSION: 1. New small/moderate left hydropneumothorax along with new areas of patchy ill-defined consolidation in the left upper lobe and left lower lobe. 2. Previously identified masslike consolidation in the left upper lobe appears slightly decreased in size. <Electronically signed by Korey Haley > 07/09/20 [id number]
== END ==
LOC: M RAD 08:32
PROVIDERS: ATTEND Internal Medicine Pulmonary Disease
DX: J70.0 Acute pulmonary manifestations due to radiation (principal)

== ENCOUNTER → 2020-08-20 | Outpatient (CLI) | payer MEDICARE ==
[~2020-08-20] MED LIST changes: -BUPR150T3 PO; +BUPR150T4 PO
[2020-08-20 14:32] LABS: BASO % 0.2 % (0.0-1.0); EOS % 0.1 % (0.0-3.0); HEMATOCRIT 39.7 % (36.0-47.0); LYMPH # 0.4 10^3/uL (1.5-5.0); MEAN CORPUSCULAR HEMOGLOBIN 26.7 pg (27.0-33.0); MEAN CORPUSCULAR HGB CONC 30.2 g/dl (32.0-36.5); MEAN CORPUSCULAR VOLUME 88.4 fl (80.0-96.0); MONO # 0.5 10^3/uL (0.0-0.8); MONO % 5.9 % (0.0-5.0); NEUTROPHILS # 7.6 10^3/uL (1.5-8.5); NEUTROPHILS % 88.2 % (36.0-66.0); PLATELET COUNT, AUTOMATED 326 10^3/uL (150-450); RED BLOOD COUNT 4.49 10^6/uL (4.00-5.40); WHITE BLOOD COUNT 8.6 10^3/uL (4.0-10.0)
[2020-08-20 14:49] LABS: ALBUMIN 3.6 GM/DL (3.2-5.2); ALT/SGPT 18 U/L (12-78); BILIRUBIN,TOTAL 0.3 MG/DL (0.2-1.0); BLOOD UREA NITROGEN 17 MG/DL (7-18); C REACTIVE PROTEIN QUANTITATIV 1.88 MG/DL (0.00-0.30); CALCIUM LEVEL 9.6 MG/DL (8.8-10.2); CARBON DIOXIDE LEVEL 32 MEQ/L (21-32); CHLORIDE LEVEL 104 MEQ/L (98-107); CREATININE FOR GFR 0.87 MG/DL (0.55-1.30); FREE T4 1.04 NG/DL (0.76-1.46); GLOMERULAR FILTRATION RATE > 60.0 (>39); GLUCOSE, FASTING 124 MG/DL (70-100); POTASSIUM SERUM 4.9 MEQ/L (3.5-5.1); SODIUM LEVEL 139 MEQ/L (136-145); THYROID STIMULATING HORMONE 0.654 uIU/ML (0.358-3.740); TOTAL PROTEIN 6.8 GM/DL (6.4-8.2); TROPONIN I < 0.02 NG/ML (< 0.10)
== END ==
LOC: M PLALAB 13:03
PROVIDERS: ATTEND Internal Medicine Infectious Disease
DX: B44.9 Aspergillosis, unspecified (principal); R00.2 Palpitations
CPT/HCPCS: 36415; 80053; 84439; 84443; 84484; 85025; 86140; G0463

== ENCOUNTER → 2020-08-21 | Outpatient (CLI) | payer MEDICARE ==
--- NOTE | 2020-08-21 15:24 | RADONC ---
Radiation Oncology Hx/FUP Radiation Oncology Hx/FUP Date of Service: Aug 21, 2020 Pt Identifier Nancy Simmons is a 75 year old female seen for a followup visit today at the department of radiation oncology for a history of stage IIB SWATHI NSCLC [id number], she completed EBRT 72 Gy in 36 fractions on 01/23/20. Diagnosis/Treatment History Oncologic History April 2019 developed a dry cough and was found to have aspergilloma of the the LLL this was treated by Dr. Flaherty. She underwent CT chest in August 2019 which showed development of a SWATHI mass and hilar adenopathy causing obstruction of the SWATHI main bronchus and atelectasis. She underwent EBUS and biopsy which returned adenocarcinoma on 10/12/19. She was ruled out as a pneumonectomy candidate and underwent definitive chemoradiation to 72 Gy in 36 fractions completed on 01/23/20. She was treated with a 4 field arrangement. She completed RT and was started on durvalumab with Dr. Matthew. As of July this was held due to inflammatory appearing CT chest from 07/09/20 Interval History Has a productive cough and KAPADIA, no fevers chills or weight loss. No pain in the left chest. No N, V, or HIGGINBOTHAM. On prednisone from Dr. Ramirez Current Therapy Durvalumab held from 07/2020 for pneumonitis concerns. Stage SWATHI NSCLC stage IIB [id number] Social History: 50+ pack year former smoker Occasionally consumes alcohol Allergies / Meds Allergies: Coded Allergies: No Known Allergies (Unverified , 02/28/20) Home Meds Active Scripts Lidocaine/Prilocaine (Lidocaine-Prilocaine Cream) 2.5%/2.5% Cream..g., 1 APLCT TOP ASDIRECTED, #30 GRAM APPLY A DIME SIZED AMOUNT TO YOUR PORT APPROX. 1 Hr prior to APPT. COVER WITH CLING WRAP TO PROTECT YOUR CLOTHING. Prov:REY MATTHEW MD 02/27/20 Reported Medications Prednisone (Prednisone) 20 Mg Tablet, 1 TAB PO DAILY for 5 Days, #5 TAB 06/19/20 Rosuvastatin Calcium (Rosuvastatin Calcium) 20 Mg Tablet, 20 MG PO QHS 02/28/20 Voriconazole (Vfend) 200 Mg Tablet, 200 MG PO DAILY, TAB 10/12/19 Losartan Potassium (Losartan Potassium) 100 Mg Tablet, 100 MG PO QHS 09/18/19 Docusate Sodium (Docusate Sodium) 100 Mg Capsule, 100 MG PO BID 09/18/19 Albuterol Sulfate (Proair Hfa) 8.5 Gm Hfa.aer.ad, 2 PUFF INH Q6HP PRN for SOB/WHEEZING, INHALER 09/18/19 Fluticasone/Vilanterol (Breo Ellipta 200-25 Mcg INH) 1 Each Blst.w.dev, 1 PUFF INH DAILY, INHALER 09/18/19 Polyethylene Glycol 3350 (Miralax) 119 Gm Powder, 17 GM PO DAILY PRN for CONSTIPATION dilute in 8 ounces of water or juice 04/28/19 Calcium Carbonate/Vitamin D3 (Calcium 600 with Vit D Chew Tb) 1 Each Tab.chew, 1 CHW PO DAILY, CHW 04/28/19 Sennosides (Senna) 8.6 Mg Tablet, 8.6 MG PO BID, TAB 04/28/19 Omeprazole (Omeprazole) 40 Mg Cap, 40 MG PO BID, CAP 07/02/15 Amitriptyline HCl (Amitriptyline HCl) 50 Mg Tab, 50 MG PO QHSP PRN for SLEEP, TAB 07/02/15 Review of Systems Review of Systems Constitutional: Reports: Fatigue; Denies: Chills, Fever, Weight Loss Eyes: Denies: Pain HEENT: Denies: Head Aches Skin: Reports: Rash Pulmonary: Reports: Dyspnea, Cough; Denies: Pleuritic Chest Pain Cardiovascular: Denies: Chest Pain, Palpitations Gastrointestinal: Denies: Nausea, Vomiting, Abdominal Pain Genitourinary: Denies: Dysuria Hematologic: Denies: Bruising Endocrine: Denies: Polydipsia Musculoskeletal: Denies: Neck pain, Back pain Neurological: Denies: Weakness, Numbness, Incoordination Psych: Reports: Mood Normal Physical Examination General Exam: Positive: Alert, Cooperative, No Acute Distress Eye Exam: Positive: PERRLA, EOMI ENT EXAM: Positive: Atraumatic, Mucous membr. moist/pink Neck Exam: Positive: Supple Chest Exam: Positive: Clear to auscultation, Rhonchi (Left chest ), Wheezing (scattered) Abdomen Exam: Positive: Normal bowel sounds, Soft Extremity Exam: Negative: Edema Skin Exam: Positive: Nl turgor and temperature Neuro Exam: Positive: Normal Gait, Normal Speech, Cranial Nerves 3-12 NL Psych Exam: Positive: Mental status NL Diagnostic and Laboratory Diagnostic Review Radiologic images, relevant labs and pathology reports were personally reviewed and discussed with Ms. Simmons. Assessment and Plan Impression Assessment Ms. Simmons is a 75 year old female with a history of stage IIB SWATHI NSCLC [id number], she completed chemoradiation 72 Gy in 36 fractions on 01/23/20. 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 I note she is on prednisone which is the recommended treatment for this. If this is RT pneumonitis, given the radiographic extent, I would expect this to be slow resolving (over weeks-months), or become chronic to some degree for her. I explained this to her. She also has a hydropneumothorax which I have not seen personally in conjunction with pneumonitis from radiation, but pneumothorax has been described in conjunction with RT in case reports. Given the scant evidence, a separate etiology for this should at least be considered. I note she is seeing Dr. Matthew and Dr. Ramirez in the coming months, therefore I think it is reasonable to see her again in 6 months time and split follow up with her other providers. I defer body imaging to Dr. Matthew. Performance Status ECOG 1 Plan Follow up in 6 months Imaging per medical oncology Pulmonology follow up in place Ms. Simmons was encouraged to call with questions or concerns in the interim period. PHILLIP ARAIZA MD Aug 21, 2020 15:24
== END ==
LOC: M ONCR 09:57
PROVIDERS: ATTEND General Practice
DX: Z08 Encounter for follow-up examination after completed treatment for malignant neoplasm (principal); Z85.118 Personal history of other malignant neoplasm of bronchus and lung; Z92.3 Personal history of irradiation

== ENCOUNTER → 2020-08-28 | Outpatient (CLI) | payer MEDICARE ==
[~2020-08-28] MED LIST changes: +ISOVUE-370 76% 100ML VIAL As Ordered ONE
--- NOTE | 2020-08-28 10:44 | REP ---
INDICATION: CA OF UPPER LOBE OF LT LUNG COMPARISON: 07/09/2020 TECHNIQUE: Axial contrast enhanced images from the thoracic inlet to the upper abdomen with coronal and sagittal reformations using 75 ml Isovue 370 intravenous contrast material. This CT examination was performed using the following dose reduction techniques: Automated exposure control, adjustment of mA and/or kv according to the patient's size, and use of iterative reconstruction technique. FINDINGS: Moderate partially loculated left pleural effusion, ill-defined areas of left upper lobe and left lower lobe consolidation along with scattered ground-glass opacities remain essentially unchanged as compared with prior examination. A miniscule residual left anterior pneumothorax is noted. There is a new area of ill-defined ground-glass opacity in the medial basilar right upper lobe. Chronic advanced underlying COPD/emphysematous changes with scattered scarring are again noted and unchanged. Evaluation of the mediastinum demonstrates stable appearance to the thoracic aorta, pulmonary vasculature, and heart/pericardium including mild left-sided mediastinal shift due to volume loss and atherosclerotic disease of the thoracic aorta and coronary arteries. No obvious significant adenopathy identified. Musculoskeletal structures demonstrate stable degenerative changes without acute osseous abnormality. Right-sided Lzzzla-G-Omiv identified with tip in the SVC/right atrium. IMPRESSION: 1. Moderate partially loculated left pleural effusion along with ill-defined areas of left upper lobe and left lower lobe consolidation and scattered ground-glass opacities with atelectasis remain essentially unchanged. 2. Small area of ground-glass opacity in the medial basilar right upper lobe represents a new finding. 3. Chronic underlying COPD/emphysematous changes with scattered scarring. <Electronically signed by Korey Haley > 08/28/20 [id number]
== END ==
LOC: M RAD 09:44
PROVIDERS: ATTEND Internal Medicine Infectious Disease
DX: B44.9 Aspergillosis, unspecified (principal); C34.12 Malignant neoplasm of upper lobe, left bronchus or lung; J43.9 Emphysema, unspecified; I70.0 Atherosclerosis of aorta; I25.10 Atherosclerotic heart disease of native coronary artery without angina pectoris; J90 Pleural effusion, not elsewhere classified; J98.11 Atelectasis; R91.8 Other nonspecific abnormal finding of lung field
CPT/HCPCS: 71260; Q9967

== ENCOUNTER → 2020-11-20 | Outpatient (CLI) | payer MEDICARE ==
[~2020-11-20] MED LIST changes: +ACET1TAB16 PO; +ACETAMINOPHEN 325 MG TAB As Ordered ONE; +BUPR150T12 PO; -BUPR150T4 PO; +COVI30VI IM; +ELIQ5TAB PO; -ISOVUE-370 76% 100ML VIAL As Ordered ONE; +LIDOCAINE 1% MDV 20ML VIAL As Ordered ONE; +LOSA50TA88 PO; +METO1TAB32 PO; +PRED5TA PO; +PRES10CA2 PO; +SODIUM BICARBONATE 8.4% INJ 50MEQ 50 ML VIAL As Ordered ONE
[2020-11-20 11:50] LABS: BASO # 0.1 10^3/uL (0.0-0.2); BASO % 0.7 % (0.0-1.0); EOS # 0.3 10^3/uL (0.0-0.5); EOS % 3.7 % (0.0-3.0); HEMATOCRIT 37.1 % (36.0-47.0); HEMOGLOBIN 11.3 g/dl (12.0-15.5); LYMPH # 0.5 10^3/uL (1.5-5.0); LYMPH % 7.8 % (24.0-44.0); MEAN CORPUSCULAR HEMOGLOBIN 26.3 pg (27.0-33.0); MEAN CORPUSCULAR HGB CONC 30.5 g/dl (32.0-36.5); MEAN CORPUSCULAR VOLUME 86.5 fl (80.0-96.0); MONO # 0.8 10^3/uL (0.0-0.8); MONO % 11.6 % (2.0-8.0); NEUTROPHILS # 5.3 10^3/uL (1.5-8.5); NEUTROPHILS % 75.6 % (36.0-66.0); PLATELET COUNT, AUTOMATED 351 10^3/uL (150-450); RED BLOOD COUNT 4.29 10^6/uL (4.00-5.40)
[2020-11-20 12:04] LABS: INR 1.23; PROTHROMBIN TIME 15.8 SECONDS (12.5-14.3)
[2020-11-20 12:05] LABS: PARTIAL THROMBOPLASTIN TIME 33.2 SECONDS (24.2-38.5)
[2020-11-20 12:09] LABS: ALBUMIN 3.1 GM/DL (3.2-5.2); ALT/SGPT 10 U/L (12-78); BILIRUBIN,TOTAL 0.3 MG/DL (0.2-1.0); BLOOD UREA NITROGEN 15 MG/DL (7-18); CALCIUM LEVEL 9.5 MG/DL (8.8-10.2); CARBON DIOXIDE LEVEL 32 MEQ/L (21-32); CHLORIDE LEVEL 104 MEQ/L (98-107); CREATININE FOR GFR 0.62 MG/DL (0.55-1.30); GLOMERULAR FILTRATION RATE > 60.0 (>39); GLUCOSE, FASTING 99 MG/DL (70-100); POTASSIUM SERUM 4.8 MEQ/L (3.5-5.1); SODIUM LEVEL 140 MEQ/L (136-145); TOTAL PROTEIN 6.6 GM/DL (6.4-8.2)
--- NOTE | 2020-11-20 12:51 | REP ---
INDICATION: LEFT THORA, 2 VIEW. COMPARISON: 11/06/2020. TECHNIQUE: Two views chest. FINDINGS: Small amount of loculated pleural air and fluid is seen in the left inferior hemithorax status post thoracentesis. There is a decreased amount of pleural fluid compared to the prior study. Diffuse left upper lobe parenchymal opacities again noted unchanged. Scattered interstitial opacities in the right lung are unchanged. There is no change in the heart and mediastinum. Right central venous catheter is again noted as well as a metallic right shoulder prosthesis. IMPRESSION: Small amount of loculated pleural air and fluid inferiorly on the left status post left thoracentesis. <Electronically signed by Uri Artis > 11/20/20 [id number]
[2020-11-20 13:19] LABS: PH BODY FLUID 7.554 UNITS (NOT ESTABLISHED); SOURCE, BODY FLUID pH PLEURAL
[2020-11-20 13:22] LABS: APPEARANCE, BODY FLUID HAZY (CLEAR); PLEURAL FL COLOR PALE YELLOW (COLORLESS); SOURCE, BODY FLUID PLEURAL
[2020-11-20 13:44] LABS: AMYLASE, BODY FLUID 45 U/L (NOT ESTABLISHED); LDH, BODY FLUID 242 U/L (NOT ESTABLISHED); SOURCE, BODY FLUID AMYLASE PLEURAL; SOURCE, BODY FLUID GLUCOSE PLEURAL; SOURCE, BODY FLUID LDH PLEURAL; SOURCE, BODY FLUID TOT PROTEIN PLEURAL
[2020-11-20 14:30] VITALS: BP 114/70
--- NOTE | 2020-11-21 16:46 | REP ---
INDICATION: LEFT PLEURAL EFFUSION The patient has a history of left pleural effusion COMPARISON: None. TECHNIQUE: The procedure was performed by Stephanie Villalpando [facility], under the direct supervision of Dr. Artis The risks and benefits of the procedure were explained to the patient and an informed consent was obtained both verbally and written. Directly prior to the start of the procedure a formal time-out was completed in the procedure room. Pleural fluid in left lung zone was localized using ultrasound guidance. The skin was prepped and draped in a sterile fashion. Six ML of buffered lidocaine was used as a local anesthetic. Using ultrasound guidance an 8-Chadian multi side-hole catheter was inserted using trocar technique. FINDINGS: Six hundred eighty mL of clear yellow colored fluid was withdrawn and sent to the laboratory for further analysis. The patient tolerated the procedure well and there were no immediate complications. After the appropriate amount of monitored convalescence, the patient was discharged from the department. IMPRESSION: Ultrasound-guided thoracentesis with removal of 680 mL of yellow pleural fluid. <Electronically signed by Stephanie Villalpando > 11/20/20 1516 <Electronically signed by Uri Artis > 11/21/20 1642
== END ==
LOC: M IRPRO 09:44
PROVIDERS: ATTEND Internal Medicine Pulmonary Disease
DX: J90 Pleural effusion, not elsewhere classified (principal)

== ENCOUNTER → 2020-11-25 | Outpatient (CLI) | payer MEDICARE ==
[~2020-11-25] MED LIST changes: -ACETAMINOPHEN 325 MG TAB As Ordered ONE; +GASTROGRAFIN SOLUTION 30ML (Q9963) As Ordered ONE; +ISOVUE-370 76% 100ML VIAL As Ordered ONE; -LIDOCAINE 1% MDV 20ML VIAL As Ordered ONE; -SODIUM BICARBONATE 8.4% INJ 50MEQ 50 ML VIAL As Ordered ONE
--- NOTE | 2020-11-25 13:00 | REP ---
INDICATION: LUNG CA COMPARISON: None TECHNIQUE: Axial contrast enhanced images from the thoracic inlet to the upper abdomen with coronal and sagittal reformations using 75 ml Isovue 370 intravenous contrast material. This CT examination was performed using the following dose reduction techniques: Automated exposure control, adjustment of mA and/or kv according to the patient's size, and use of iterative reconstruction technique. FINDINGS: Marked bronchiectasis and increased areas of irregular consolidation along with septal thickening involves the left upper lung zone. Moderate to large left hydropneumothorax is identified which is increased from prior examination. The aerated left mid to lower lung and right hemithorax demonstrate marked COPD/emphysematous disease similar to prior examination. Subtle chronic reticulonodular scarring to the right middle lobe are unchanged. No significant/obvious axillary, hilar, or mediastinal adenopathy is identified. Thoracic aorta, pulmonary vasculature, and heart/pericardium are relatively stable again demonstrating atherosclerotic changes. No cardiomegaly or pericardial effusion. IMPRESSION: 1. Moderate to large increasing left hydropneumothorax along with increased areas of opacity, septal thickening, and irregular bronchiectasis to the left upper lung zone which may be related to progressive post radiation/post therapeutic changes. 2. Diffuse advanced COPD/emphysematous changes to the bilateral aerated lung peng. No new acute area of consolidation. No obvious adenopathy. <Electronically signed by Korey Haley > 11/25/20 1257
--- NOTE | 2020-11-25 13:13 | REP ---
INDICATION: LUNG CA. COMPARISON: None TECHNIQUE: Axial contrast-enhanced images from the lung bases to the pubic symphysis using oral and 100 cc Isovue 370 intravenous contrast material. Coronal and sagittal reformations obtained along with delayed images of the abdomen. This CT examination was performed using the following dose reduction techniques: Automated exposure control, adjustment of mA and/or kv according to the patient's size, and the use of iterative reconstruction technique. FINDINGS: Liver, spleen, pancreas, gallbladder, bilateral adrenal glands and kidneys are normal. The enteric system is without obstruction or acute inflammatory process. Mild/moderate fecal stasis and scattered colonic diverticula noted without acute diverticulitis. Pelvis demonstrates normal bladder and prior hysterectomy. No ascites. No free air. No intraperitoneal or retroperitoneal adenopathy. Atherosclerotic changes to the aorta and vasculature noted without aneurysm or dissection. Musculoskeletal structures demonstrate postsurgical and degenerative changes without obvious acute process. IMPRESSION: 1. No evidence for metastatic disease. No ascites, adenopathy, or focal inflammatory stranding. 2. Nonacute findings as described above <Electronically signed by Korey Haley > 11/25/20 [id number]
== END ==
LOC: M RAD 10:43
PROVIDERS: ATTEND Internal Medicine Medical Oncology
DX: C34.92 Malignant neoplasm of unspecified part of left bronchus or lung (principal); J94.8 Other specified pleural conditions; J44.9 Chronic obstructive pulmonary disease, unspecified
CPT/HCPCS: 71260; 74177; Q9963; Q9967

== ENCOUNTER → 2020-12-18 | Outpatient (CLI) | payer MEDICARE ==
[~2020-12-18] MED LIST changes: +GABA-283 PO; -GABA-845 PO; -GASTROGRAFIN SOLUTION 30ML (Q9963) As Ordered ONE; +GUAISYP9 PO; -ISOVUE-370 76% 100ML VIAL As Ordered ONE; +LIDO1CRE42 TOP; -LIDO2.5C15 TOP
--- NOTE | 2020-12-18 10:57 | REP ---
INDICATION: PLEURAL EFFUSION R CHEST WALL PAIN. COMPARISON: CT 11/25/2020, chest radiographs 11/20/2020. TECHNIQUE: PA and lateral views chest with bilateral decubitus views. FINDINGS: Left upper lobe consolidative opacity is unchanged. Loculated left inferior hydropneumothorax appears slightly increased. Pleural fluid freely layers on the decubitus films, primarily in the inferior left hemithorax with smaller amount layering superiorly. There is volume loss on the left with mild shift of heart mediastinal structures toward that side. There is mild calcification of the thoracic aorta. Right central venous catheter is again noted. There are degenerative changes of the spine. IMPRESSION: Slightly increased inferior left hydropneumothorax. On decubitus films pleural fluid freely layers, primarily inferiorly, with very small amount layering superiorly. <Electronically signed by Uri Artis > 12/18/20 [id number]
== END ==
LOC: M RAD 09:58
PROVIDERS: ATTEND Internal Medicine Pulmonary Disease
DX: J90 Pleural effusion, not elsewhere classified (principal)

== ENCOUNTER → 2021-02-19 | Outpatient (CLI) | payer MEDICARE ==
[~2021-02-19] MED LIST changes: +ALLE180T33 PO; +OMEP40CA4 PO; -OMEP40CA97 PO
== END ==
LOC: M ONCR 09:05
PROVIDERS: ATTEND General Practice
DX: C34.12 Malignant neoplasm of upper lobe, left bronchus or lung (principal); Z92.3 Personal history of irradiation

== ENCOUNTER → 2021-04-09 | Outpatient (CLI) | payer MEDICARE ==
[~2021-04-09] MED LIST changes: +ISOVUE-370 76% 100ML VIAL As Ordered ONE
--- NOTE | 2021-04-09 11:02 | REP ---
INDICATION: CHEST WALL PAIN, LUNG CA. COMPARISON: 11/25/2020. TECHNIQUE: CT chest performed following the intravenous administration of 100 cc of Isovue 370. Sagittal and coronal reconstruction images are performed. FINDINGS: Lungs: There is stable pleural and parenchymal fibrotic change on the right. No new parenchymal opacities are seen in the right lung.. A calcified granuloma is again seen in the right upper lobe. There is anterior left upper lobe consolidative opacity again noted with bronchiectasis. Mediastinum: No adenopathy. There is shift of heart and mediastinal structures to the left. Jessica: No adenopathy. Axilla: No adenopathy. Pleura: The prior left hydropneumothorax has almost completely resolved, with mild residual. Focal pleural thickening or fluid is seen at the right cardiophrenic angle, unchanged. Heart: Not enlarged. Thoracic aorta: No aneurysm or dissection. Upper abdominal structures: Unremarkable. Visualized osseous structures: There is a metallic prosthesis at the right shoulder joint. No significant rib abnormality is seen. There are degenerative changes of the spine without compression fracture. There is a right central venous catheter, the tip is in the superior vena cava. IMPRESSION: Stable pleural and parenchymal fibrotic changes on the right. No new parenchymal opacity in the right lung. Left upper lobe consolidative opacities again noted with bronchiectasis. Left hydropneumothorax has almost completely resolved with mild residual hydropneumothorax. No significant rib or chest wall abnormality. <Electronically signed by Uri Artis > 04/09/21 1057
== END ==
LOC: M RAD 09:59
PROVIDERS: ATTEND Internal Medicine Medical Oncology
DX: R07.89 Other chest pain (principal); J84.10 Pulmonary fibrosis, unspecified; J47.9 Bronchiectasis, uncomplicated; J94.8 Other specified pleural conditions
CPT/HCPCS: 71260; Q9967

== ENCOUNTER → 2021-05-23 | Outpatient (CLI) | payer MEDICARE ==
[~2021-05-23] MED LIST changes: +DOXY1CAP60 PO; -ISOVUE-370 76% 100ML VIAL As Ordered ONE
--- NOTE | 2021-05-23 15:22 | REPVR ---
PROCEDURE INFORMATION: Exam: MR Head Without and With Contrast Exam date and time: 05/23/2021 12:05 PM Age: 76 years old Clinical indication: Condition or disease; History of cancer (specify primary cancer site): ; Primary cancer: Lung; Additional info: Lung CA, headache TECHNIQUE: Imaging protocol: MR of the head without and with intravenous contrast. Contrast material: PROHANCE; Contrast volume: 11 ml; Contrast route: INTRAVENOUS (IV); COMPARISON: MRI-Brain W/O FOLL BY WITH 11/13/2019 3:00 PM FINDINGS: Brain: There is mild patchy increased T2 signal intensity within the bilateral cerebral periventricular white matter, consistent with chronic microvascular ischemic changes. There are few small focal areas of chronic ischemia in bilateral frontal, parietal and periatrial white matter. There is no abnormal diffusion weighted signal intensity to suggest an acute ischemic event. On gradient echo imaging, no susceptibility changes are seen to represent parenchymal calcification or degraded blood products. There is mild diffuse cerebral atrophy present, consistent with this patient's age. Cerebral ventricles: The ventricular system demonstrates mild diffuse compensatory enlargement. Bones/joints: Unremarkable. Paranasal sinuses: Normal as visualized. No acute sinusitis. Mastoid air cells: Normal as visualized. No mastoid effusion. Orbital cavity: Unremarkable. Soft tissues: Unremarkable. IMPRESSION: 1. No acute infarction, masses or hemorrhage is seen. No acute intracranial abnormality is identified. 2. Diffuse age-related cerebral atrophy and mild chronic microvascular white matter ischemic changes, without evidence of an acute intracranial abnormality. 3. No abnormal contrast enhancement is seen. 4. There has been no adverse interval change since the previous study. Electronically signed by: Clifton Bedolla On 05/23/2021 15:22:03 PM
== END ==
LOC: M PLARAD 10:41
PROVIDERS: ATTEND Internal Medicine Medical Oncology
DX: G31.1 Senile degeneration of brain, not elsewhere classified (principal); R51.9 Headache, unspecified; C34.90 Malignant neoplasm of unspecified part of unspecified bronchus or lung

== ENCOUNTER → 2021-06-12 | Outpatient (CLI) | payer MEDICARE ==
[~2021-06-12] MED LIST changes: +BARIUM SULFATE 700 MG TABLET (E-Z-DISK) As Ordered ONE; -DOXY1CAP60 PO; +DOXY50CA51 PO; +E-Z-GAS II EFFERVESCENT PACKET (SODIUM BICARB./CITRIC ACID/SIMETHICONE) As Ordered ONE; +E-Z-HD 98% w/w 340GM SUSP BTL As Ordered ONE; +E-Z-PAQUE 96% w/w SUSP 176GM BTL As Ordered ONE; +HYDR-3713 PO; +VARIBAR NECTAR 40% w/v 240ML SUSP BTL As Ordered ONE; +VARIBAR PUDDING 40% w/v 230ML TUBE As Ordered ONE
--- NOTE | 2021-06-12 19:13 | REP ---
INDICATION: DYSPHAGIA, UNSPECIFIED. COMPARISON: None. TECHNIQUE: The procedure was performed by LIZZIE Gilbert, under the direct supervision of Dr. Artis. The procedure was performed with Merline Vidales from speech pathology present. 5 ml aliquots of thin, pudding, mixed fruit, soft food, hard food and pill consistency barium was administered. FINDINGS: Penetration without overt aspiration is seen with both thin and nectar consistencies of barium. All other consistencies of barium seem to pass readily and without penetration. The detailed report of this examination will be provided by speech pathology. IMPRESSION: Penetration without overt aspiration is seen with both thin and nectar consistencies of barium. All other consistencies of barium seen to pass readily and without penetration. Please see detailed report from speech pathology for further evaluation. 3.1 minutes of fluoroscopy time was utilized for this procedure. Some fluoroscopic images are performed with last image hold technology. These images require no additional radiation <Electronically signed by Nissa Kumar > 06/12/21 1620 <Electronically signed by Uri Artis > 06/12/21 [id number]
--- NOTE | 2021-06-12 19:14 | REP ---
INDICATION: DYSPHAGIA. COMPARISON: CT chest dated 04/09/2021 TECHNIQUE: This procedure was performed by Nissa [facility], under the direct supervision of Dr. Artis. Images were reviewed with Dr. Artis prior to dictation. Liquid barium and gas producing crystals were given in the erect position, as well as liquid barium in the prone oblique position in order to perform a double contrast esophagram examination. FINDINGS: A single view PA chest x-ray is submitted as a splitting machine feeder film. The chronic left lung consolidative opacity is seen on today's examination. Mild chronic loculated fluid is seen inferiorly within the left lung. There is a mild midline shift of the heart and mediastinum to the left. A right Fanyud-Y-Eole is seen with its catheter tip in the SVC. A right shoulder prosthesis is seen.. The oral and pharyngeal stages of deglutition were unremarkable. Esophageal transport is prompt and efficient and there is no evidence of esophagitis or mucosal ring. Mild tertiary contractions are seen on today's examination. Cervical disc spacers are seen at the level of C4-5 and C5-6. There is minimal narrowing of the cervical esophagus at the level of the C5 disc spacer. There is no evidence of a hiatal hernia. Gastroesophageal reflux was observed to below the level of the nataly. IMPRESSION: Mild tertiary contractions are seen on today's examination. Cervical disc spacers are seen at the level of C4-5 and C5-6. There is minimal narrowing of the cervical esophagus at the level of the C5 disc spacer. There is no evidence of a hiatal hernia. Gastroesophageal reflux was observed to below the level of the nataly. 0.9 minutes of fluoroscopy time was utilized for this procedure. Some fluoroscopic images are performed with last image hold technology. These images require no additional radiation. <Electronically signed by Nissa Kumar > 06/12/21 1613 <Electronically signed by Uri Artis > 06/12/21 [id number]
== END ==
LOC: M RAD 08:16
PROVIDERS: ATTEND Internal Medicine Gastroenterology
DX: R13.10 Dysphagia, unspecified (principal); K21.9 Gastro-esophageal reflux disease without esophagitis

== ENCOUNTER → 2021-08-28 | Outpatient (CLI) | payer MEDICARE ==
[~2021-08-28] MED LIST changes: -ALEN70SO PO; +ALEN70SO2 PO; -BARIUM SULFATE 700 MG TABLET (E-Z-DISK) As Ordered ONE; -E-Z-GAS II EFFERVESCENT PACKET (SODIUM BICARB./CITRIC ACID/SIMETHICONE) As Ordered ONE; -E-Z-HD 98% w/w 340GM SUSP BTL As Ordered ONE; -E-Z-PAQUE 96% w/w SUSP 176GM BTL As Ordered ONE; +IPRA6SP; +LOSA100T45 PO; -LOSA100T50 PO; +LOSA50TA28 PO; -LOSA50TA88 PO; +ONDA-84; +ONDA-84 PO; -ONDA8TAB10; -ONDA8TAB10 PO; -PROC10TA4; -PROC10TA4 PO; +PROC10TA5; +PROC10TA5 PO; +TRAM50TA2; -VARIBAR NECTAR 40% w/v 240ML SUSP BTL As Ordered ONE; -VARIBAR PUDDING 40% w/v 230ML TUBE As Ordered ONE
== END ==
LOC: M ONCR 09:36
PROVIDERS: ATTEND General Practice
DX: C34.12 Malignant neoplasm of upper lobe, left bronchus or lung (principal); Z92.3 Personal history of irradiation; Z87.891 Personal history of nicotine dependence; Z79.899 Other long term (current) drug therapy

== ENCOUNTER → 2021-09-01 | Outpatient (CLI) | payer MEDICARE | LOC: M PLARAD 14:08 | PROVIDERS: ATTEND Internal Medicine Pulmonary Disease | DX: C34.12 Malignant neoplasm of upper lobe, left bronchus or lung (principal); I65.23 Occlusion and stenosis of bilateral carotid arteries; J43.8 Other emphysema; J84.10 Pulmonary fibrosis, unspecified; J98.11 Atelectasis; J90 Pleural effusion, not elsewhere classified; I31.3 Pericardial effusion (noninflammatory); I70.0 Atherosclerosis of aorta; I25.10 Atherosclerotic heart disease of native coronary artery without angina pectoris; Z95.828 Presence of other vascular implants and grafts; Z98.1 Arthrodesis status | CPT/HCPCS: 78815; A9552 ==

== ENCOUNTER → 2022-02-18 | Outpatient (CLI) | payer MEDICARE ==
[~2022-02-18] MED LIST changes: -ACET1TAB16 PO; +ACET300T48 PO; +GABA-1171 PO; +OXYC1TAB23 PO; +VITA100T59 PO; +ZINC1TAB2 PO
== END ==
LOC: M ONCR 13:10
PROVIDERS: ATTEND General Practice
DX: Z08 Encounter for follow-up examination after completed treatment for malignant neoplasm (principal); R07.89 Other chest pain; R05.9 Cough, unspecified; R53.83 Other fatigue; R06.09 Other forms of dyspnea; R06.02 Shortness of breath; Z85.118 Personal history of other malignant neoplasm of bronchus and lung; Z92.3 Personal history of irradiation; Z92.21 Personal history of antineoplastic chemotherapy; R91.8 Other nonspecific abnormal finding of lung field; Z87.891 Personal history of nicotine dependence; Z79.891 Long term (current) use of opiate analgesic

== ENCOUNTER → 2022-02-20 | Outpatient (REF) | payer MEDICARE | LOC: M SFHCDERM 13:54 | PROVIDERS: ATTEND Nurse Practitioner Family | DX: B07.9 Viral wart, unspecified (principal); L57.0 Actinic keratosis ==

== ENCOUNTER → 2022-03-09 | Outpatient (CLI) | payer MEDICARE | LOC: M PLARAD 07:36 | PROVIDERS: ATTEND Internal Medicine Medical Oncology | DX: C34.31 Malignant neoplasm of lower lobe, right bronchus or lung (principal); I65.23 Occlusion and stenosis of bilateral carotid arteries; J43.9 Emphysema, unspecified; J84.10 Pulmonary fibrosis, unspecified; I31.3 Pericardial effusion (noninflammatory); Z95.828 Presence of other vascular implants and grafts; Z98.1 Arthrodesis status; K57.90 Diverticulosis of intestine, part unspecified, without perforation or abscess without bleeding; J47.9 Bronchiectasis, uncomplicated; I70.0 Atherosclerosis of aorta; I25.10 Atherosclerotic heart disease of native coronary artery without angina pectoris | CPT/HCPCS: 78815; A9552 ==

== ENCOUNTER 2022-11-23 12:33 | Inpatient (IN) | payer OTHER, MEDICARE ==
[~2022-11-23] VITALS: Ht 157.5 cm; Wt 55.9 kg
[2022-11-23] VITALS (13 sets, daily range): BP systolic 62–121; BP diastolic 39–60
[2022-11-23] MEDS: fentaNYL 100 MCG/2 ML INJECTION IV PRN ×4 (08:15→20:37)
[~2022-11-23 12:33] MED LIST changes: -ALBU2.5V10 INH; -LOSA100T45 PO; +LOSA100T46 PO; -METO25TA4 PO; -VITA500C24 PO
[2022-11-23] MEDS ORDERED: NS 1,000 ML IV ONE ×2 (12:55→16:30)
[2022-11-23] MEDS ORDERED: ACETAMINOPHEN 1000MG 100ML IV BAG IV ONE (12:55)
[2022-11-23] MEDS ORDERED: NS 1,680 ML in IV 1 EA IV ONE (13:45)
[2022-11-23] MEDS ORDERED: PIPERACILLIN/TAZOBACTAM SOD 3.375 GM in D5W MINI-BAG PLUS 50 ML IV ONE (14:00)
[2022-11-23 14:18] LABS: ABG BASE EXCESS -0.9 (-2.0-2.0); ABG HCO3 21.8 MEQ/L (22.0-26.0); ABG O2 SATURATION 98.4 % (95.0-99.0); ABG PARTIAL PRESSURE CO2 29.2 mmHg (35.0-45.0); ABG STANDARD HCO3 23.7 MEQ/L (22.0-26.0); ABG TOTAL CO2 22.7 MEQ/L (23.0-31.0); ABG pH (ARTERIAL) 7.491 UNITS (7.350-7.450)
[2022-11-23] MEDS ORDERED: ISOVUE-370 76% 100ML VIAL As Ordered ONE (14:32)
[2022-11-23 14:48] LABS: BASO % 0.2 % (0.0-1.0); HEMATOCRIT 26.7 % (36.0-47.0); HEMOGLOBIN 8.7 g/dl (12.0-15.5); LYMPH # 0.6 10^3/uL (1.5-5.0); MEAN CORPUSCULAR HEMOGLOBIN 29.7 pg (27.0-33.0); MEAN CORPUSCULAR HGB CONC 32.6 g/dl (32.0-36.5); MEAN CORPUSCULAR VOLUME 91.1 fl (80.0-96.0); MONO % 8.1 % (2.0-8.0); NEUTROPHILS # 16.9 10^3/uL (1.5-8.5); NEUTROPHILS % 87.8 % (36.0-66.0); PLATELET COUNT, AUTOMATED 221 10^3/uL (150-450); RED BLOOD COUNT 2.93 10^6/uL (4.00-5.40); WHITE BLOOD COUNT 19.2 10^3/uL (4.0-10.0)
[2022-11-23 15:04] LABS: CK-MB VALUE MASS 1.9 NG/ML (<3.6)
[2022-11-23 15:07] LABS: ALBUMIN 2.5 G/DL (3.2-5.2); BILIRUBIN,DIRECT 0.2 MG/DL (<0.4); BILIRUBIN,TOTAL 0.4 MG/DL (0.3-1.2); MB/CK RELATIVE INDEX 0.88 (< OR =4); TOTAL PROTEIN 5.3 G/DL (5.7-8.2)
[2022-11-23 15:08] LABS: INR 2.44; PROTHROMBIN TIME 26.9 SECONDS (12.5-14.5)
[2022-11-23 15:09] LABS: PARTIAL THROMBOPLASTIN TIME 40.3 SECONDS (24.8-34.2)
[2022-11-23] MEDS ORDERED: VANCOMYCIN HCL 1,000 MG, VIAL MATE ADAPTER 1 EACH in NS 250 ML IV ONE (15:15)
[2022-11-23 15:20] LABS: MONO # 1.6 10^3/uL (0.0-0.8)
[2022-11-23 15:56] LABS: CK-MB VALUE MASS 2.1 NG/ML (<3.6)
[2022-11-23 15:58] LABS: MB/CK RELATIVE INDEX 0.92 (< OR =4)
[2022-11-23 16:35] LABS: HEMATOCRIT 23.7 % (36.0-47.0); HEMOGLOBIN 7.6 g/dl (12.0-15.5)
[2022-11-23] MEDS ORDERED: SODIUM CHLORIDE 0.9% INJ 10 ML SYR IV PRN (16:40)
[2022-11-23] MEDS ORDERED: LIDOCAINE 2% 100MG/5ML SDV (FOR ANES.) As Ordered ONE (16:45)
[2022-11-23] MEDS ORDERED: propofoL 200 MG/20 ML VIAL As Ordered ONE (16:45)
[2022-11-23] MEDS ORDERED: MIDAZOLAM INJ 2MG/2ML VIAL As Ordered ONE (16:45)
[2022-11-23] MEDS ORDERED: ROCURONIUM BROMIDE 50MG/5ML VIAL As Ordered ONE (16:45)
[2022-11-23] MEDS ORDERED: fentaNYL 100 MCG/2 ML INJECTION As Ordered ONE ×2 (16:45→20:11)
[2022-11-23] MEDS ORDERED: PHYTONADIONE INJection 10 MG in NS 50 ML IV ONE (17:20)
[2022-11-23] MEDS ORDERED: PROTHROMBIN COMPLEX CONCEN IV ONE (17:20)
[2022-11-23] MEDS ORDERED: ETOMIDATE INJ 20MG/10ML VIAL As Ordered ONE (17:45)
[2022-11-23] MEDS ORDERED: METO25TA4 PO (17:59)
[2022-11-23] MEDS ORDERED: ALBU2.5V10 INH (17:59)
[2022-11-23] MEDS ORDERED: VITA500C24 PO (17:59)
[2022-11-23] MEDS ORDERED: PRED5TA PO (18:00)
[2022-11-23] MEDS ORDERED: VASOPRESSIN INJ 20UNITS/ML 1ML VIAL As Ordered ONE (18:00)
[2022-11-23] MEDS ORDERED: HOME MED LIST COMPLETE! XX SCH (18:05)
[2022-11-23] MEDS ORDERED: ACETAMINOPHEN 1000MG 100ML IV BAG As Ordered ONE (18:42)
[2022-11-23] MEDS ORDERED: SUGAMMADEX SODIUM 500 MG/5 ML VIAL (BRIDION) As Ordered ONE (19:06)
[2022-11-23] MEDS ORDERED: SODIUM BICARBONATE 8.4% INJ 50ML SYRINGE As Ordered ONE (19:16)
[2022-11-23] MEDS ORDERED: CALCIUM CHLORIDE 10% 1 GM/10 ML SYR As Ordered ONE (19:34)
[2022-11-23] MEDS ORDERED: oxyCODONE 5MG TAB PO PRN (20:10)
[2022-11-23] MEDS ORDERED: ONDANSETRON 4MG 2ML VIAL IV PRN (20:10)
[2022-11-23] MEDS ORDERED: CALCIUM CHLORIDE 10% 1 GM in D5W 100 ML IV ONE (20:10)
[2022-11-23] MEDS ORDERED: LR 1,000 ML IV SCH (20:10)
[2022-11-23 20:21] LABS: ABG BASE EXCESS -3.6 (-2.0-2.0); ABG HCO3 21.1 MEQ/L (22.0-26.0); ABG O2 LITER FLOW 15; ABG O2 SATURATION 99.1 % (95.0-99.0); ABG PARTIAL PRESSURE CO2 36.7 mmHg (35.0-45.0); ABG PARTIAL PRESSURE O2 218.5 mmHg (75.0-100.0); ABG STANDARD HCO3 21.5 MEQ/L (22.0-26.0); ABG TOTAL CO2 22.2 MEQ/L (23.0-31.0); ABG pH (ARTERIAL) 7.377 UNITS (7.350-7.450)
[2022-11-23] MEDS: MORPHINE 2 MG/ML 1ML VIAL IV PRN ×3 (20:45→21:06)
[2022-11-23] MEDS ORDERED: ALBUTEROL SULFATE 2.5MG/0.5ML INH NEB SOLN NEB PRN (21:05)
[2022-11-23 21:44] LABS: BASO % 0.2 % (0.0-1.0); HEMATOCRIT 25.5 % (36.0-47.0); HEMOGLOBIN 8.3 g/dl (12.0-15.5); LYMPH # 0.5 10^3/uL (1.5-5.0); MEAN CORPUSCULAR HEMOGLOBIN 28.9 pg (27.0-33.0); MEAN CORPUSCULAR HGB CONC 32.5 g/dl (32.0-36.5); MEAN CORPUSCULAR VOLUME 88.9 fl (80.0-96.0); MONO # 1.2 10^3/uL (0.0-0.8); MONO % 12.1 % (2.0-8.0); NEUTROPHILS # 8.3 10^3/uL (1.5-8.5); NEUTROPHILS % 81.9 % (36.0-66.0); RED BLOOD COUNT 2.87 10^6/uL (4.00-5.40); WHITE BLOOD COUNT 10.2 10^3/uL (4.0-10.0)
[2022-11-23 21:54] LABS: PLATELET COUNT, AUTOMATED 112 10^3/uL (150-450)
[2022-11-23 22:01] LABS: ALBUMIN 1.7 G/DL (3.2-5.2); ALKALINE PHOSPHATASE 38 U/L (46-116); ALT/SGPT 35 U/L (7.0-40); AST/SGOT 47 U/L (<34); BILIRUBIN,TOTAL 0.8 MG/DL (0.3-1.2); BLOOD UREA NITROGEN 16 MG/DL (9-23); CALCIUM LEVEL 7.1 MG/DL (8.3-10.6); CARBON DIOXIDE LEVEL 23 MMOL/L (20-31); CHLORIDE LEVEL 112 MMOL/L (98-107); CREATININE FOR GFR 0.79 MG/DL (0.55-1.30); GLOMERULAR FILTRATION RATE > 60.0 (>39); GLUCOSE, FASTING 164 MG/DL (74-106); MAGNESIUM LEVEL 1.4 MG/DL (1.8-2.4); PHOSPHORUS LEVEL 3.4 MG/DL (2.4-5.1); POTASSIUM SERUM 4.2 MMOL/L (3.5-5.1); SODIUM LEVEL 141 MMOL/L (136-145); TOTAL PROTEIN 3.5 G/DL (5.7-8.2)
[2022-11-23] MEDS: NS 1,000 ML IV SCH (22:22)
[2022-11-23] MEDS: MAG SULF 1GM/100ML (MAG RUN) 1 GM in IV 1 EA IV SCH ×2 (22:56→23:29)
[2022-11-23] MEDS: RAMELTEON 8 MG TAB (ROZEREM) PO PRN (23:29)
[2022-11-23] MEDS: INSULIN LISPRO (NovoLOG) PER UNIT SC SCH (23:34)
[2022-11-23] MEDS: HYDROMORPHONE HCL 0.5 MG/ 0.5 ML SYRINGE IV PRN (23:39)
[2022-11-24] VITALS (29 sets, daily range): BP systolic 96–156; BP diastolic 52–100
[2022-11-24] MEDS: IPRATROPIUM 0.02% SOLN 0.5MG 2.5ML NEB NEB SCH ×3 (02:11→12:27)
[2022-11-24] MEDS: ALBUTEROL SULFATE 2.5MG/0.5ML INH NEB SOLN NEB SCH ×3 (02:11→12:27)
[2022-11-24] MEDS: HYDROMORPHONE HCL 0.5 MG/ 0.5 ML SYRINGE IV PRN ×7 (02:40→22:45)
[2022-11-24] MEDS: guaiFENesin ER 600 MG TAB PO SCH ×2 (04:40→20:22)
[2022-11-24 05:37] LABS: HEMATOCRIT 29.5 % (36.0-47.0); HEMOGLOBIN 9.6 g/dl (12.0-15.5); MEAN CORPUSCULAR HEMOGLOBIN 28.7 pg (27.0-33.0); MEAN CORPUSCULAR HGB CONC 32.5 g/dl (32.0-36.5); MEAN CORPUSCULAR VOLUME 88.3 fl (80.0-96.0); PLATELET COUNT, AUTOMATED 146 10^3/uL (150-450); RED BLOOD COUNT 3.34 10^6/uL (4.00-5.40); WHITE BLOOD COUNT 8.4 10^3/uL (4.0-10.0)
[2022-11-24 05:42] LABS: APPEARANCE, URINE HAZY (CLEAR); BACTERIA, URINE AUTO NEGATIVE (NEGATIVE); BILIRUBIN, URINE AUTO NEGATIVE (NEGATIVE); BLOOD, URINE BLOOD 3+ (NEGATIVE); COLOR, URINE YELLOW (YELLOW); GLUCOSE, URINE (UA) AUTO NEGATIVE (NEGATIVE); KETONE, URINE AUTO TRACE mg/dL (NEGATIVE); LEUKOCYTE ESTERASE, URINE AUTO NEGATIVE (NEGATIVE); MUCUS, URINE SMALL (NEGATIVE); NITRITE, URINE AUTO NEGATIVE (NEGATIVE); PROTEIN, URINE AUTO 1+ mg/dL (NEGATIVE); RBC, URINE AUTO 77 /HPF (0-3); SPECIFIC GRAVITY URINE AUTO 1.033 (1.002-1.035); SQUAMOUS EPITHELIAL CELL UR AU 0 /HPF (0-6); UROBILINOGEN, URINE AUTO 0.2 mg/dL (0.0-2.0); WBC, URINE AUTO 2 /HPF (0-3)
[2022-11-24 05:46] LABS: INR 1.36
[2022-11-24 05:47] LABS: PARTIAL THROMBOPLASTIN TIME 33.2 SECONDS (24.8-34.2)
[2022-11-24 05:57] LABS: BLOOD UREA NITROGEN 15 MG/DL (9-23); CALCIUM LEVEL 7.1 MG/DL (8.3-10.6); CARBON DIOXIDE LEVEL 24 MMOL/L (20-31); CHLORIDE LEVEL 111 MMOL/L (98-107); CREATININE FOR GFR 0.62 MG/DL (0.55-1.30); GLOMERULAR FILTRATION RATE > 60.0 (>39); GLUCOSE, FASTING 113 MG/DL (74-106); POTASSIUM SERUM 3.9 MMOL/L (3.5-5.1); SODIUM LEVEL 141 MMOL/L (136-145)
[2022-11-24] MEDS: INSULIN LISPRO (NovoLOG) PER UNIT SC SCH ×2 (06:00→12:00)
[2022-11-24] MEDS: PANTOPRAZOLE 40MG VIAL IV SCH (08:25)
[2022-11-24] MEDS: NS 1,000 ML IV SCH (08:26)
[2022-11-24] MEDS ORDERED: LR 1,000 ML IV SCH (09:00)
[2022-11-24] MEDS ORDERED: IPRATROPIUM 0.5MG/ALBUTEROL 2.5MG INH SOL UD 3ML (DUONEB) NEB PRN (13:30)
[2022-11-24] MEDS: CALCIUM CARBONATE 500 MG CHEW U/D PO PRN ×2 (14:33→20:41)
[2022-11-24] MEDS: IPRATROPIUM 0.5MG/ALBUTEROL 2.5MG INH SOL UD 3ML (DUONEB) NEB SCH ×3 (15:10→23:17)
[2022-11-24] MEDS: LevoFLOXacin IV 750 MG in IV 1 EA IV SCH (16:23)
[2022-11-24] MEDS: PERCOCET 5MG/325MG TAB PO PRN (21:42)
[2022-11-25] VITALS (48 sets, daily range): BP systolic 82–136; BP diastolic 54–98
[2022-11-25] MEDS: HYDROMORPHONE HCL 0.5 MG/ 0.5 ML SYRINGE IV PRN ×6 (01:46→23:33)
[2022-11-25] MEDS: IPRATROPIUM 0.5MG/ALBUTEROL 2.5MG INH SOL UD 3ML (DUONEB) NEB SCH ×6 (03:22→23:27)
[2022-11-25] MEDS: PERCOCET 5MG/325MG TAB PO PRN ×3 (03:50→18:59)
[2022-11-25] MEDS ORDERED: METOPROLOL 5 MG/5 ML VIAL As Ordered ONE (04:07)
[2022-11-25] MEDS: METOPROLOL 5 MG/5 ML VIAL IV STA ×2 (04:08→04:11)
[2022-11-25] MEDS: METOPROLOL 5 MG/5 ML VIAL IV SCH ×3 (04:08→04:18)
[2022-11-25] MEDS ORDERED: DIGOXIN INJ 0.5 MG/2 ML AMP IV STA (04:39)
[2022-11-25] MEDS ORDERED: METOPROLOL TART 25 MG TABLET PO ONE (05:00)
[2022-11-25 05:36] LABS: HEMATOCRIT 26.5 % (36.0-47.0); HEMOGLOBIN 8.8 g/dl (12.0-15.5); MEAN CORPUSCULAR HEMOGLOBIN 29.1 pg (27.0-33.0); MEAN CORPUSCULAR HGB CONC 33.2 g/dl (32.0-36.5); MEAN CORPUSCULAR VOLUME 87.7 fl (80.0-96.0); PLATELET COUNT, AUTOMATED 220 10^3/uL (150-450); RED BLOOD COUNT 3.02 10^6/uL (4.00-5.40); WHITE BLOOD COUNT 12.9 10^3/uL (4.0-10.0)
[2022-11-25 06:00] LABS: BLOOD UREA NITROGEN 13 MG/DL (9-23); CALCIUM LEVEL 7.5 MG/DL (8.3-10.6); CARBON DIOXIDE LEVEL 26 MMOL/L (20-31); CHLORIDE LEVEL 107 MMOL/L (98-107); CREATININE FOR GFR 0.52 MG/DL (0.55-1.30); GLOMERULAR FILTRATION RATE > 60.0 (>39); GLUCOSE, FASTING 120 MG/DL (74-106); POTASSIUM SERUM 3.9 MMOL/L (3.5-5.1); SODIUM LEVEL 139 MMOL/L (136-145)
[2022-11-25] MEDS ORDERED: AMIODARONE HCL 360 MG in IV 1 EA IV SCH (06:35)
[2022-11-25] MEDS ORDERED: AMIODARONE HCL 150 MG in IV 1 EA IV ONE (06:35)
[2022-11-25 08:16] LABS: MAGNESIUM LEVEL 1.7 MG/DL (1.8-2.4)
[2022-11-25] MEDS: CALCIUM CARBONATE 500 MG CHEW U/D PO PRN ×2 (09:20→20:24)
[2022-11-25] MEDS: guaiFENesin ER 600 MG TAB PO SCH ×2 (09:22→20:09)
[2022-11-25] MEDS: PANTOPRAZOLE 40MG VIAL IV SCH (09:22)
[2022-11-25] MEDS: MAG SULF 1GM/100ML (MAG RUN) 1 GM in IV 1 EA IV SCH ×2 (11:49→12:36)
[2022-11-25] MEDS: APIXABAN 5 MG TAB (ELIQUIS) PO SCH ×2 (11:49→20:08)
[2022-11-25] MEDS: LevoFLOXacin IV 750 MG in IV 1 EA IV SCH (17:14)
[2022-11-25] MEDS: ROSUVASTATIN 10 MG TAB (CRESTOR) PO SCH (20:08)
[2022-11-25] MEDS: GABAPENTIN 100 MG CAP PO SCH (20:09)
[2022-11-26] VITALS (7 sets, daily range): BP systolic 99–126; BP diastolic 50–62
[2022-11-26] MEDS: PERCOCET 5MG/325MG TAB PO PRN ×3 (02:14→15:44)
[2022-11-26] MEDS: IPRATROPIUM 0.5MG/ALBUTEROL 2.5MG INH SOL UD 3ML (DUONEB) NEB SCH ×6 (03:18→23:22)
[2022-11-26] MEDS: CALCIUM CARBONATE 500 MG CHEW U/D PO PRN ×2 (05:02→17:24)
[2022-11-26 05:21] LABS: HEMATOCRIT 25.1 % (36.0-47.0); HEMOGLOBIN 8.2 g/dl (12.0-15.5); MEAN CORPUSCULAR HEMOGLOBIN 28.7 pg (27.0-33.0); MEAN CORPUSCULAR HGB CONC 32.7 g/dl (32.0-36.5); MEAN CORPUSCULAR VOLUME 87.8 fl (80.0-96.0); PLATELET COUNT, AUTOMATED 276 10^3/uL (150-450); RED BLOOD COUNT 2.86 10^6/uL (4.00-5.40); WHITE BLOOD COUNT 16.7 10^3/uL (4.0-10.0)
[2022-11-26 05:46] LABS: BLOOD UREA NITROGEN 12 MG/DL (9-23); CALCIUM LEVEL 7.6 MG/DL (8.3-10.6); CARBON DIOXIDE LEVEL 30 MMOL/L (20-31); CHLORIDE LEVEL 102 MMOL/L (98-107); CREATININE FOR GFR 0.45 MG/DL (0.55-1.30); GLOMERULAR FILTRATION RATE > 60.0 (>39); GLUCOSE, FASTING 133 MG/DL (74-106); MAGNESIUM LEVEL 1.7 MG/DL (1.8-2.4); POTASSIUM SERUM 3.5 MMOL/L (3.5-5.1); SODIUM LEVEL 136 MMOL/L (136-145)
[2022-11-26] MEDS: MAG SULF 1GM/100ML (MAG RUN) 1 GM in IV 1 EA IV SCH ×2 (06:15→08:25)
[2022-11-26] MEDS: APIXABAN 5 MG TAB (ELIQUIS) PO SCH ×2 (08:35→20:52)
[2022-11-26] MEDS: guaiFENesin ER 600 MG TAB PO SCH ×2 (08:35→20:52)
[2022-11-26] MEDS: GABAPENTIN 100 MG CAP PO SCH ×3 (08:35→20:52)
[2022-11-26] MEDS: PANTOPRAZOLE 40MG VIAL IV SCH (08:35)
[2022-11-26] MEDS: COLCHICINE 0.6 MG TABLET PO SCH (11:12)
[2022-11-26] MEDS: HYDROMORPHONE HCL 0.5 MG/ 0.5 ML SYRINGE IV PRN ×2 (11:12→19:49)
[2022-11-26] MEDS: LevoFLOXacin IV 750 MG in IV 1 EA IV SCH (16:14)
[2022-11-26] MEDS: ROSUVASTATIN 10 MG TAB (CRESTOR) PO SCH (20:52)
[2022-11-27] VITALS (7 sets, daily range): BP systolic 98–116; BP diastolic 52–59
[2022-11-27] MEDS: PERCOCET 5MG/325MG TAB PO PRN (01:11)
[2022-11-27] MEDS: IPRATROPIUM 0.5MG/ALBUTEROL 2.5MG INH SOL UD 3ML (DUONEB) NEB SCH ×6 (03:38→23:19)
[2022-11-27] MEDS: HYDROMORPHONE HCL 0.5 MG/ 0.5 ML SYRINGE IV PRN (04:11)
[2022-11-27] MEDS: CALCIUM CARBONATE 500 MG CHEW U/D PO PRN ×2 (04:12→11:39)
[2022-11-27 06:52] LABS: HEMATOCRIT 25.6 % (36.0-47.0); HEMOGLOBIN 8.4 g/dl (12.0-15.5); MEAN CORPUSCULAR HEMOGLOBIN 28.9 pg (27.0-33.0); MEAN CORPUSCULAR HGB CONC 32.8 g/dl (32.0-36.5); PLATELET COUNT, AUTOMATED 400 10^3/uL (150-450); RED BLOOD COUNT 2.91 10^6/uL (4.00-5.40); WHITE BLOOD COUNT 17.4 10^3/uL (4.0-10.0)
[2022-11-27 07:19] LABS: BLOOD UREA NITROGEN 13 MG/DL (9-23); CALCIUM LEVEL 7.9 MG/DL (8.3-10.6); CARBON DIOXIDE LEVEL 32 MMOL/L (20-31); CHLORIDE LEVEL 99 MMOL/L (98-107); CREATININE FOR GFR 0.43 MG/DL (0.55-1.30); GLOMERULAR FILTRATION RATE > 60.0 (>39); GLUCOSE, FASTING 137 MG/DL (74-106); MAGNESIUM LEVEL 1.7 MG/DL (1.8-2.4); POTASSIUM SERUM 3.7 MMOL/L (3.5-5.1); SODIUM LEVEL 136 MMOL/L (136-145)
[2022-11-27] MEDS ORDERED: BISACODYL 10MG SUPP PR ONE (08:00)
[2022-11-27] MEDS: MAG SULF 1GM/100ML (MAG RUN) 1 GM in IV 1 EA IV SCH ×2 (09:10→11:31)
[2022-11-27] MEDS: COLCHICINE 0.6 MG TABLET PO SCH (09:10)
[2022-11-27] MEDS: APIXABAN 5 MG TAB (ELIQUIS) PO SCH ×2 (09:10→21:55)
[2022-11-27] MEDS: PANTOPRAZOLE 40MG VIAL IV SCH (09:10)
[2022-11-27] MEDS: GABAPENTIN 100 MG CAP PO SCH ×3 (09:11→21:55)
[2022-11-27] MEDS: SENOKOT S TAB PO SCH ×2 (09:11→21:54)
[2022-11-27] MEDS: guaiFENesin ER 600 MG TAB PO SCH ×2 (09:11→21:55)
[2022-11-27] MEDS ORDERED: ONDANSETRON 4MG 2ML VIAL IV ONE (10:10)
[2022-11-27] MEDS: ONDANSETRON 4MG 2ML VIAL IV PRN (16:13)
[2022-11-27] MEDS ORDERED: LevoFLOXacin 750 MG TABLET PO SCH (17:00)
[2022-11-27] MEDS: ROSUVASTATIN 10 MG TAB (CRESTOR) PO SCH (21:55)
[2022-11-28] MEDS: IPRATROPIUM 0.5MG/ALBUTEROL 2.5MG INH SOL UD 3ML (DUONEB) NEB SCH ×6 (03:36→23:15)
[2022-11-28 03:51] VITALS: BP 114/57
[2022-11-28 05:27] LABS: HEMATOCRIT 25.6 % (36.0-47.0); HEMOGLOBIN 8.3 g/dl (12.0-15.5); MEAN CORPUSCULAR HEMOGLOBIN 28.5 pg (27.0-33.0); MEAN CORPUSCULAR HGB CONC 32.4 g/dl (32.0-36.5); PLATELET COUNT, AUTOMATED 495 10^3/uL (150-450); RED BLOOD COUNT 2.91 10^6/uL (4.00-5.40)
[2022-11-28 05:45] LABS: BLOOD UREA NITROGEN 16 MG/DL (9-23); CALCIUM LEVEL 7.6 MG/DL (8.3-10.6); CARBON DIOXIDE LEVEL 32 MMOL/L (20-31); CHLORIDE LEVEL 97 MMOL/L (98-107); CREATININE FOR GFR 0.42 MG/DL (0.55-1.30); GLOMERULAR FILTRATION RATE > 60.0 (>39); GLUCOSE, FASTING 108 MG/DL (74-106); MAGNESIUM LEVEL 1.7 MG/DL (1.8-2.4); POTASSIUM SERUM 3.6 MMOL/L (3.5-5.1); SODIUM LEVEL 137 MMOL/L (136-145)
[2022-11-28] MEDS ORDERED: MAG SULF 1GM/100ML (MAG RUN) 1 GM in IV 1 EA IV ONE (07:25)
[2022-11-28 08:17] VITALS: BP 127/64
[2022-11-28] MEDS: ONDANSETRON 4MG 2ML VIAL IV PRN (08:32)
[2022-11-28] MEDS: HYDROMORPHONE HCL 0.5 MG/ 0.5 ML SYRINGE IV PRN ×4 (08:35→21:21)
[2022-11-28] MEDS: COLCHICINE 0.6 MG TABLET PO SCH (10:04)
[2022-11-28] MEDS: GABAPENTIN 100 MG CAP PO SCH ×3 (10:04→21:09)
[2022-11-28] MEDS: SENOKOT S TAB PO SCH ×2 (10:04→21:09)
[2022-11-28] MEDS: PANTOPRAZOLE 40MG VIAL IV SCH (10:04)
[2022-11-28] MEDS: APIXABAN 5 MG TAB (ELIQUIS) PO SCH ×2 (10:04→21:09)
[2022-11-28] MEDS: guaiFENesin ER 600 MG TAB PO SCH ×2 (10:05→21:09)
[2022-11-28] MEDS: LevoFLOXacin IV 750 MG in IV 1 EA IV SCH (12:15)
[2022-11-28 12:22] VITALS: BP 111/59
[2022-11-28] MEDS: NS 1,000 ML IV SCH (15:06)
[2022-11-28 15:32] VITALS: BP 106/56
[2022-11-28 20:00] VITALS: BP 101/55
[2022-11-28] MEDS: ROSUVASTATIN 10 MG TAB (CRESTOR) PO SCH (21:08)
[2022-11-28 23:59] VITALS: BP 109/56
[2022-11-29] VITALS (9 sets, daily range): BP systolic 90–134; BP diastolic 40–64
[2022-11-29] MEDS: NS 1,000 ML IV SCH ×3 (00:59→21:38)
[2022-11-29] MEDS: HYDROMORPHONE HCL 0.5 MG/ 0.5 ML SYRINGE IV PRN ×7 (01:33→21:30)
[2022-11-29] MEDS: IPRATROPIUM 0.5MG/ALBUTEROL 2.5MG INH SOL UD 3ML (DUONEB) NEB SCH ×5 (04:00→20:22)
[2022-11-29 08:09] LABS: HEMATOCRIT 25.8 % (36.0-47.0); HEMOGLOBIN 8.2 g/dl (12.0-15.5); MEAN CORPUSCULAR HEMOGLOBIN 28.8 pg (27.0-33.0); MEAN CORPUSCULAR HGB CONC 31.8 g/dl (32.0-36.5); MEAN CORPUSCULAR VOLUME 90.5 fl (80.0-96.0); PLATELET COUNT, AUTOMATED 657 10^3/uL (150-450); RED BLOOD COUNT 2.85 10^6/uL (4.00-5.40); WHITE BLOOD COUNT 20.8 10^3/uL (4.0-10.0)
[2022-11-29 08:39] LABS: ALBUMIN 1.6 G/DL (3.2-5.2); ALKALINE PHOSPHATASE 68 U/L (46-116); ALT/SGPT 43 U/L (7.0-40); AST/SGOT 52 U/L (<34); BILIRUBIN,TOTAL 0.3 MG/DL (0.3-1.2); BLOOD UREA NITROGEN 15 MG/DL (9-23); CALCIUM LEVEL 7.4 MG/DL (8.3-10.6); CARBON DIOXIDE LEVEL 32 MMOL/L (20-31); CHLORIDE LEVEL 99 MMOL/L (98-107); CREATININE FOR GFR 0.42 MG/DL (0.55-1.30); GLOMERULAR FILTRATION RATE > 60.0 (>39); GLUCOSE, FASTING 81 MG/DL (74-106); MAGNESIUM LEVEL 1.7 MG/DL (1.8-2.4); POTASSIUM SERUM 3.4 MMOL/L (3.5-5.1); SODIUM LEVEL 139 MMOL/L (136-145); TOTAL PROTEIN 4.5 G/DL (5.7-8.2)
[2022-11-29] MEDS: PANTOPRAZOLE 40MG VIAL IV SCH (09:10)
[2022-11-29] MEDS: ONDANSETRON 4MG 2ML VIAL IV PRN (09:10)
[2022-11-29] MEDS: guaiFENesin ER 600 MG TAB PO SCH ×2 (09:19→21:00)
[2022-11-29] MEDS: APIXABAN 5 MG TAB (ELIQUIS) PO SCH ×2 (09:19→20:36)
[2022-11-29] MEDS: GABAPENTIN 100 MG CAP PO SCH ×3 (09:19→20:36)
[2022-11-29] MEDS: SENOKOT S TAB PO SCH ×2 (09:19→20:36)
[2022-11-29] MEDS: COLCHICINE 0.6 MG TABLET PO SCH (09:19)
[2022-11-29] MEDS ORDERED: DIGOXIN INJ 0.5 MG/2 ML AMP IV ONE (09:35)
[2022-11-29] MEDS ORDERED: SODIUM CHLORIDE 0.9% 1000ML IV ONE (09:35)
[2022-11-29] MEDS: GASTROGRAFIN SOLUTION 30ML PO SCH ×4 (10:00→17:18)
[2022-11-29] MEDS ORDERED: MAG SULF 1GM/100ML (MAG RUN) 1 GM in IV 1 EA IV ONE (10:00)
[2022-11-29] MEDS: AMIODARONE 200 MG TAB (PACERONE) NG SCH ×3 (10:12→21:30)
[2022-11-29] MEDS: LevoFLOXacin IV 750 MG in IV 1 EA IV SCH (11:56)
[2022-11-29] MEDS ORDERED: SODIUM CHLORIDE 0.9% 500 ML IV ONE (13:35)
[2022-11-29] MEDS ORDERED: ISOVUE-370 76% 100ML VIAL As Ordered ONE (18:57)
[2022-11-29] MEDS: ROSUVASTATIN 10 MG TAB (CRESTOR) PO SCH (20:36)
[2022-11-29] MEDS: ANALGESIC BALM CRM 3OZ TOP SCH (21:22)
[2022-11-30] VITALS: BP 108/56
[2022-11-30] MEDS: IPRATROPIUM 0.5MG/ALBUTEROL 2.5MG INH SOL UD 3ML (DUONEB) NEB SCH ×6 (00:22→19:46)
[2022-11-30] MEDS: HYDROMORPHONE HCL 0.5 MG/ 0.5 ML SYRINGE IV PRN ×7 (02:21→21:22)
[2022-11-30 04:12] VITALS: BP 124/59
[2022-11-30] MEDS: PERCOCET 5MG/325MG TAB PO PRN (05:15)
[2022-11-30 05:30] LABS: HEMATOCRIT 24.9 % (36.0-47.0); HEMOGLOBIN 7.8 g/dl (12.0-15.5); MEAN CORPUSCULAR HEMOGLOBIN 28.6 pg (27.0-33.0); MEAN CORPUSCULAR HGB CONC 31.3 g/dl (32.0-36.5); MEAN CORPUSCULAR VOLUME 91.2 fl (80.0-96.0); PLATELET COUNT, AUTOMATED 698 10^3/uL (150-450); RED BLOOD COUNT 2.73 10^6/uL (4.00-5.40); WHITE BLOOD COUNT 21.7 10^3/uL (4.0-10.0)
[2022-11-30 06:09] LABS: BLOOD UREA NITROGEN 11 MG/DL (9-23); CALCIUM LEVEL 7.2 MG/DL (8.3-10.6); CARBON DIOXIDE LEVEL 29 MMOL/L (20-31); CHLORIDE LEVEL 100 MMOL/L (98-107); CREATININE FOR GFR 0.42 MG/DL (0.55-1.30); GLOMERULAR FILTRATION RATE > 60.0 (>39); GLUCOSE, FASTING 82 MG/DL (74-106); MAGNESIUM LEVEL 1.7 MG/DL (1.8-2.4); POTASSIUM SERUM 3.6 MMOL/L (3.5-5.1); SODIUM LEVEL 139 MMOL/L (136-145)
[2022-11-30 07:53] VITALS: BP 118/57
[2022-11-30] MEDS: NS 1,000 ML IV SCH (08:47)
[2022-11-30] MEDS: MAG SULF 1GM/100ML (MAG RUN) 1 GM in IV 1 EA IV SCH ×2 (09:00→10:23)
[2022-11-30] MEDS: PANTOPRAZOLE 40MG VIAL IV SCH (09:01)
[2022-11-30] MEDS: GABAPENTIN 100 MG CAP PO SCH ×3 (09:01→21:20)
[2022-11-30] MEDS: AMIODARONE 200 MG TAB (PACERONE) NG SCH ×3 (09:01→21:20)
[2022-11-30] MEDS: COLCHICINE 0.6 MG TABLET PO SCH (09:01)
[2022-11-30] MEDS: guaiFENesin ER 600 MG TAB PO SCH ×2 (09:01→21:00)
[2022-11-30] MEDS: SENOKOT S TAB PO SCH ×2 (09:01→21:33)
[2022-11-30] MEDS: ANALGESIC BALM CRM 3OZ TOP SCH ×2 (09:02→21:21)
[2022-11-30] MEDS: APIXABAN 5 MG TAB (ELIQUIS) PO SCH ×2 (09:09→21:20)
[2022-11-30 12:00] VITALS: BP 122/58
[2022-11-30] MEDS: LevoFLOXacin IV 750 MG in IV 1 EA IV SCH (12:14)
[2022-11-30 16:00] VITALS: BP 133/63
[2022-11-30] MEDS ORDERED: MULTIVITAMIN -ADULT INJECTION 10 ML, ZINC/COPPER/MANGANESE/SELENIUM 1 ML in AMINO AC/EL... IV SCH (18:00)
[2022-11-30] MEDS ORDERED: FAT EMULSION IV 250 ML IV ONE (18:00)
[2022-11-30] MEDS: INSULIN LISPRO (NovoLOG) PER UNIT SC SCH (18:00)
[2022-11-30 19:56] VITALS: BP 122/63
[2022-11-30] MEDS: CHLORASEPTIC SPRAY MT PRN (21:19)
[2022-11-30] MEDS: ROSUVASTATIN 10 MG TAB (CRESTOR) PO SCH (21:20)
[2022-12-01] VITALS (12 sets, daily range): BP systolic 100–156; BP diastolic 54–70; O2SAT 86–98
[2022-12-01] MEDS: HYDROMORPHONE HCL 0.5 MG/ 0.5 ML SYRINGE IV PRN ×6 (00:54→23:39)
[2022-12-01] MEDS: INSULIN LISPRO (NovoLOG) PER UNIT SC SCH ×5 (00:55→23:39)
[2022-12-01] MEDS: CHLORASEPTIC SPRAY MT PRN (01:01)
[2022-12-01] MEDS: NS 1,000 ML IV SCH (01:41)
[2022-12-01 05:44] LABS: BASO # 0.1 10^3/uL (0.0-0.2); BASO % 0.3 % (0.0-1.0); EOS # 0.1 10^3/uL (0.0-0.5); EOS % 0.6 % (0.0-3.0); HEMATOCRIT 25.8 % (36.0-47.0); LYMPH # 0.8 10^3/uL (1.5-5.0); LYMPH % 3.4 % (24.0-44.0); MEAN CORPUSCULAR HEMOGLOBIN 28.1 pg (27.0-33.0); MEAN CORPUSCULAR VOLUME 90.5 fl (80.0-96.0); MONO % 9.1 % (2.0-8.0); NEUTROPHILS # 18.3 10^3/uL (1.5-8.5); NEUTROPHILS % 82.2 % (36.0-66.0); PLATELET COUNT, AUTOMATED 739 10^3/uL (150-450); RED BLOOD COUNT 2.85 10^6/uL (4.00-5.40); WHITE BLOOD COUNT 22.3 10^3/uL (4.0-10.0)
[2022-12-01] MEDS: PERCOCET 5MG/325MG TAB PO PRN ×2 (05:44→11:29)
[2022-12-01] MEDS: IPRATROPIUM 0.5MG/ALBUTEROL 2.5MG INH SOL UD 3ML (DUONEB) NEB SCH ×6 (05:50→19:44)
[2022-12-01 06:07] LABS: ALBUMIN 1.6 G/DL (3.2-5.2); ALKALINE PHOSPHATASE 58 U/L (46-116); ALT/SGPT 22 U/L (7.0-40); AST/SGOT 22 U/L (<34); BILIRUBIN,TOTAL 0.2 MG/DL (0.3-1.2); BLOOD UREA NITROGEN 10 MG/DL (9-23); CALCIUM LEVEL 6.9 MG/DL (8.3-10.6); CARBON DIOXIDE LEVEL 35 MMOL/L (20-31); CHLORIDE LEVEL 98 MMOL/L (98-107); CREATININE FOR GFR 0.35 MG/DL (0.55-1.30); GLOMERULAR FILTRATION RATE > 60.0 (>39); GLUCOSE, FASTING 165 MG/DL (74-106); MAGNESIUM LEVEL 1.5 MG/DL (1.8-2.4); POTASSIUM SERUM 3.1 MMOL/L (3.5-5.1); SODIUM LEVEL 136 MMOL/L (136-145); TOTAL PROTEIN 4.3 G/DL (5.7-8.2)
[2022-12-01] MEDS: MAG SULF 1GM/100ML (MAG RUN) 1 GM in IV 1 EA IV SCH ×2 (06:27→09:43)
[2022-12-01] MEDS: ANALGESIC BALM CRM 3OZ TOP SCH ×2 (09:00→20:20)
[2022-12-01] MEDS: GABAPENTIN 100 MG CAP PO SCH ×3 (09:41→21:15)
[2022-12-01] MEDS: PANTOPRAZOLE 40MG VIAL IV SCH (09:41)
[2022-12-01] MEDS: AMIODARONE 200 MG TAB (PACERONE) NG SCH ×3 (09:41→21:15)
[2022-12-01] MEDS: APIXABAN 5 MG TAB (ELIQUIS) PO SCH ×2 (09:41→21:15)
[2022-12-01] MEDS: SENOKOT S TAB PO SCH ×2 (09:41→21:15)
[2022-12-01] MEDS: guaiFENesin ER 600 MG TAB PO SCH ×2 (09:41→21:15)
[2022-12-01] MEDS: COLCHICINE 0.6 MG TABLET PO SCH (09:42)
[2022-12-01] MEDS: KCL 10MEQ/100ML SWI (KRUN) 10 MEQ in IV 1 EA IV SCH ×4 (09:43→12:42)
[2022-12-01] MEDS: LevoFLOXacin IV 750 MG in IV 1 EA IV SCH (12:42)
[2022-12-01] MEDS ORDERED: KCL 10MEQ/100ML SWI (KRUN) 10 MEQ in IV 1 EA IV SCH (15:00)
[2022-12-01] MEDS ORDERED: AMINO AC/ELECTROLYTE/DEX/CALC 2,000 ML IV SCH (18:00)
[2022-12-01] MEDS ORDERED: FAT EMULSION IV 250 ML IV ONE (18:00)
[2022-12-01] MEDS: ONDANSETRON 4MG 2ML VIAL IV PRN (20:19)
[2022-12-01] MEDS: ROSUVASTATIN 10 MG TAB (CRESTOR) PO SCH (21:15)
[2022-12-02] VITALS (18 sets, daily range): BP systolic 102–118; BP diastolic 56–64; O2SAT 91–98
[2022-12-02] MEDS: IPRATROPIUM 0.5MG/ALBUTEROL 2.5MG INH SOL UD 3ML (DUONEB) NEB SCH ×7 (00:02→23:14)
[2022-12-02 05:36] LABS: BASO # 0.1 10^3/uL (0.0-0.2); BASO % 0.3 % (0.0-1.0); EOS # 0.2 10^3/uL (0.0-0.5); HEMATOCRIT 26.3 % (36.0-47.0); HEMOGLOBIN 8.3 g/dl (12.0-15.5); LYMPH # 0.7 10^3/uL (1.5-5.0); LYMPH % 3.5 % (24.0-44.0); MEAN CORPUSCULAR HEMOGLOBIN 28.3 pg (27.0-33.0); MEAN CORPUSCULAR HGB CONC 31.6 g/dl (32.0-36.5); MEAN CORPUSCULAR VOLUME 89.8 fl (80.0-96.0); MONO # 1.5 10^3/uL (0.0-0.8); MONO % 7.5 % (2.0-8.0); NEUTROPHILS # 16.8 10^3/uL (1.5-8.5); NEUTROPHILS % 85.3 % (36.0-66.0); PLATELET COUNT, AUTOMATED 698 10^3/uL (150-450); RED BLOOD COUNT 2.93 10^6/uL (4.00-5.40); WHITE BLOOD COUNT 19.7 10^3/uL (4.0-10.0)
[2022-12-02] MEDS: INSULIN LISPRO (NovoLOG) PER UNIT SC SCH ×4 (05:50→23:18)
[2022-12-02] MEDS: HYDROMORPHONE HCL 0.5 MG/ 0.5 ML SYRINGE IV PRN ×2 (05:50→09:39)
[2022-12-02 06:08] LABS: ALBUMIN 1.7 G/DL (3.2-5.2); ALKALINE PHOSPHATASE 62 U/L (46-116); ALT/SGPT 19 U/L (7.0-40); AST/SGOT 16 U/L (<34); BILIRUBIN,TOTAL 0.2 MG/DL (0.3-1.2); BLOOD UREA NITROGEN 13 MG/DL (9-23); CALCIUM LEVEL 7.3 MG/DL (8.3-10.6); CARBON DIOXIDE LEVEL 36 MMOL/L (20-31); CHLORIDE LEVEL 97 MMOL/L (98-107); CREATININE FOR GFR 0.38 MG/DL (0.55-1.30); GLOMERULAR FILTRATION RATE > 60.0 (>39); GLUCOSE, FASTING 141 MG/DL (74-106); MAGNESIUM LEVEL 1.7 MG/DL (1.8-2.4); POTASSIUM SERUM 3.4 MMOL/L (3.5-5.1); SODIUM LEVEL 137 MMOL/L (136-145); TOTAL PROTEIN 4.6 G/DL (5.7-8.2)
[2022-12-02] MEDS ORDERED: MOM 30ML SUSPENSION UDC PO ONE (06:40)
[2022-12-02] MEDS ORDERED: POTASSIUM CHLORIDE 10MEQ SR TABLET PO ONE (07:00)
[2022-12-02] MEDS: SENOKOT S TAB PO SCH ×2 (08:13→21:36)
[2022-12-02] MEDS: MAGNESIUM OXIDE 400MG TAB (MAG-OX) PO SCH ×2 (08:13→21:36)
[2022-12-02] MEDS: PANTOPRAZOLE 40MG VIAL IV SCH (08:13)
[2022-12-02] MEDS: AMIODARONE 200 MG TAB (PACERONE) NG SCH (08:14)
[2022-12-02] MEDS: APIXABAN 5 MG TAB (ELIQUIS) PO SCH ×2 (08:14→21:36)
[2022-12-02] MEDS: GABAPENTIN 100 MG CAP PO SCH ×3 (08:14→21:36)
[2022-12-02] MEDS: COLCHICINE 0.6 MG TABLET PO SCH (08:14)
[2022-12-02] MEDS: guaiFENesin ER 600 MG TAB PO SCH (08:14)
[2022-12-02] MEDS: ANALGESIC BALM CRM 3OZ TOP SCH ×3 (08:16→22:16)
[2022-12-02] MEDS: predniSONE 5 MG TAB PO SCH (13:35)
[2022-12-02] MEDS: PERCOCET 5MG/325MG TAB PO PRN ×2 (13:45→21:46)
[2022-12-02] MEDS: LIDOCAINE 5% (LIDODERM) PATCH TD SCH (14:24)
[2022-12-02] MEDS: MORPHINE 2 MG/ML 1ML VIAL IV PRN ×3 (14:25→23:18)
[2022-12-02] MEDS ORDERED: FAT EMULSION IV 250 ML IV ONE (18:00)
[2022-12-02] MEDS ORDERED: MULTIVITAMIN -ADULT INJECTION 10 ML, ZINC/COPPER/MANGANESE/SELENIUM 1 ML in AMINO AC/EL... IV SCH (18:00)
[2022-12-02] MEDS: ROSUVASTATIN 10 MG TAB (CRESTOR) PO SCH (21:35)
[2022-12-02] MEDS: CHLORASEPTIC SPRAY MT PRN (22:16)
[2022-12-03] VITALS (22 sets, daily range): BP systolic 101–119; BP diastolic 58–62; O2SAT 92–99
[2022-12-03] MEDS: IPRATROPIUM 0.5MG/ALBUTEROL 2.5MG INH SOL UD 3ML (DUONEB) NEB SCH ×4 (03:26→22:01)
[2022-12-03 05:40] LABS: BASO % 0.3 % (0.0-1.0); EOS # 0.3 10^3/uL (0.0-0.5); EOS % 1.7 % (0.0-3.0); HEMATOCRIT 24.8 % (36.0-47.0); LYMPH # 0.8 10^3/uL (1.5-5.0); LYMPH % 5.2 % (24.0-44.0); MEAN CORPUSCULAR HGB CONC 32.3 g/dl (32.0-36.5); MEAN CORPUSCULAR VOLUME 89.9 fl (80.0-96.0); MONO # 1.5 10^3/uL (0.0-0.8); MONO % 9.5 % (2.0-8.0); NEUTROPHILS % 81.6 % (36.0-66.0); PLATELET COUNT, AUTOMATED 697 10^3/uL (150-450); RED BLOOD COUNT 2.76 10^6/uL (4.00-5.40); WHITE BLOOD COUNT 15.9 10^3/uL (4.0-10.0)
[2022-12-03] MEDS: PERCOCET 5MG/325MG TAB PO PRN ×4 (05:47→21:18)
[2022-12-03 05:56] LABS: ALBUMIN 1.6 G/DL (3.2-5.2); ALKALINE PHOSPHATASE 66 U/L (46-116); ALT/SGPT 18 U/L (7.0-40); AST/SGOT 20 U/L (<34); BILIRUBIN,TOTAL 0.2 MG/DL (0.3-1.2); BLOOD UREA NITROGEN 15 MG/DL (9-23); CALCIUM LEVEL 7.9 MG/DL (8.3-10.6); CARBON DIOXIDE LEVEL 39 MMOL/L (20-31); CHLORIDE LEVEL 96 MMOL/L (98-107); CREATININE FOR GFR 0.41 MG/DL (0.55-1.30); GLOMERULAR FILTRATION RATE > 60.0 (>39); GLUCOSE, FASTING 118 MG/DL (74-106); POTASSIUM SERUM 3.7 MMOL/L (3.5-5.1); SODIUM LEVEL 138 MMOL/L (136-145); TOTAL PROTEIN 4.5 G/DL (5.7-8.2)
[2022-12-03] MEDS: INSULIN LISPRO (NovoLOG) PER UNIT SC SCH ×3 (06:33→17:10)
[2022-12-03] MEDS: CHLORASEPTIC SPRAY MT PRN (06:34)
[2022-12-03] MEDS: MORPHINE 2 MG/ML 1ML VIAL IV PRN ×5 (06:40→22:09)
[2022-12-03] MEDS ORDERED: SODIUM CHLORIDE 0.9% 1000ML IV ONE (08:05)
[2022-12-03] MEDS: COLCHICINE 0.6 MG TABLET PO SCH (09:04)
[2022-12-03] MEDS: MAGNESIUM OXIDE 400MG TAB (MAG-OX) PO SCH ×2 (09:04→20:19)
[2022-12-03] MEDS: AMIODARONE 200 MG TAB (PACERONE) NG SCH (09:04)
[2022-12-03] MEDS: predniSONE 5 MG TAB PO SCH (09:04)
[2022-12-03 09:05] LABS: TOTAL 25(OH) VITAMIN D 29.8 NG/ML (20.0-100.0)
[2022-12-03] MEDS: GABAPENTIN 100 MG CAP PO SCH ×3 (09:05→20:20)
[2022-12-03] MEDS: PANTOPRAZOLE 40MG VIAL IV SCH (09:05)
[2022-12-03] MEDS: APIXABAN 5 MG TAB (ELIQUIS) PO SCH ×2 (09:05→20:19)
[2022-12-03] MEDS: SENOKOT S TAB PO SCH ×2 (09:05→20:20)
[2022-12-03] MEDS: LIDOCAINE 5% (LIDODERM) PATCH TD SCH (09:06)
[2022-12-03] MEDS: ANALGESIC BALM CRM 3OZ TOP SCH ×2 (09:07→20:20)
[2022-12-03] MEDS ORDERED: MOM 30ML SUSPENSION UDC PO ONE (09:55)
[2022-12-03] MEDS ORDERED: FAT EMULSION IV 250 ML IV ONE (18:00)
[2022-12-03] MEDS ORDERED: AMINO AC/ELECTROLYTE/DEX/CALC 2,000 ML IV SCH (18:00)
[2022-12-03] MEDS: ROSUVASTATIN 10 MG TAB (CRESTOR) PO SCH (20:19)
[2022-12-04] VITALS (30 sets, daily range): BP systolic 104–120; BP diastolic 55–60; O2SAT 92–98
[2022-12-04] MEDS: INSULIN LISPRO (NovoLOG) PER UNIT SC SCH ×4 (00:16→17:57)
[2022-12-04] MEDS: MORPHINE 2 MG/ML 1ML VIAL IV PRN ×4 (04:25→17:59)
[2022-12-04 05:40] LABS: BASO # 0.1 10^3/uL (0.0-0.2); BASO % 0.3 % (0.0-1.0); EOS # 0.3 10^3/uL (0.0-0.5); EOS % 1.7 % (0.0-3.0); HEMATOCRIT 27.1 % (36.0-47.0); HEMOGLOBIN 8.5 g/dl (12.0-15.5); LYMPH # 0.6 10^3/uL (1.5-5.0); LYMPH % 3.2 % (24.0-44.0); MEAN CORPUSCULAR HEMOGLOBIN 28.5 pg (27.0-33.0); MEAN CORPUSCULAR HGB CONC 31.4 g/dl (32.0-36.5); MEAN CORPUSCULAR VOLUME 90.9 fl (80.0-96.0); MONO % 9.9 % (2.0-8.0); NEUTROPHILS # 15.5 10^3/uL (1.5-8.5); PLATELET COUNT, AUTOMATED 722 10^3/uL (150-450); RED BLOOD COUNT 2.98 10^6/uL (4.00-5.40); WHITE BLOOD COUNT 18.5 10^3/uL (4.0-10.0)
[2022-12-04] MEDS: PERCOCET 5MG/325MG TAB PO PRN (06:01)
[2022-12-04 06:08] LABS: ALBUMIN 1.8 G/DL (3.2-5.2); ALKALINE PHOSPHATASE 74 U/L (46-116); ALT/SGPT 16 U/L (7.0-40); AST/SGOT 16 U/L (<34); BILIRUBIN,TOTAL 0.2 MG/DL (0.3-1.2); BLOOD UREA NITROGEN 16 MG/DL (9-23); CALCIUM LEVEL 8.1 MG/DL (8.3-10.6); CARBON DIOXIDE LEVEL 39 MMOL/L (20-31); CHLORIDE LEVEL 95 MMOL/L (98-107); CREATININE FOR GFR 0.42 MG/DL (0.55-1.30); GLOMERULAR FILTRATION RATE > 60.0 (>39); GLUCOSE, FASTING 130 MG/DL (74-106); MAGNESIUM LEVEL 1.8 MG/DL (1.8-2.4); MONO # 1.8 10^3/uL (0.0-0.8); PHOSPHORUS LEVEL 4.6 MG/DL (2.4-5.1); POTASSIUM SERUM 3.8 MMOL/L (3.5-5.1); SODIUM LEVEL 137 MMOL/L (136-145); TOTAL PROTEIN 4.9 G/DL (5.7-8.2)
[2022-12-04] MEDS: IPRATROPIUM 0.5MG/ALBUTEROL 2.5MG INH SOL UD 3ML (DUONEB) NEB SCH ×3 (07:14→23:29)
[2022-12-04] MEDS: TIOTROPIUM INHALER/CAPSULE (SPIRIVA) INH SCH (07:14)
[2022-12-04 07:59] LABS: MAGNESIUM LEVEL 1.7 MG/DL (1.8-2.4); PHOSPHORUS LEVEL 4.3 MG/DL (2.4-5.1)
[2022-12-04] MEDS: ANALGESIC BALM CRM 3OZ TOP SCH ×2 (09:00→20:35)
[2022-12-04] MEDS: predniSONE 5 MG TAB PO SCH (09:05)
[2022-12-04] MEDS: SENOKOT S TAB PO SCH ×2 (09:05→20:34)
[2022-12-04] MEDS: AMIODARONE 200 MG TAB (PACERONE) NG SCH (09:05)
[2022-12-04] MEDS: APIXABAN 5 MG TAB (ELIQUIS) PO SCH ×2 (09:05→20:34)
[2022-12-04] MEDS: LIDOCAINE 5% (LIDODERM) PATCH TD SCH (09:06)
[2022-12-04] MEDS: GABAPENTIN 300 MG CAP PO SCH ×3 (09:06→20:34)
[2022-12-04] MEDS: PANTOPRAZOLE 40MG VIAL IV SCH (09:06)
[2022-12-04] MEDS: MAGNESIUM OXIDE 400MG TAB (MAG-OX) PO SCH ×2 (09:06→20:34)
[2022-12-04] MEDS: SUCRALFATE SUSP 1GM/10ML UD PO SCH ×2 (09:07→20:33)
[2022-12-04] MEDS: COLCHICINE 0.6 MG TABLET PO SCH (09:07)
[2022-12-04] MEDS: NS 1,000 ML IV SCH ×2 (12:33→21:27)
[2022-12-04] MEDS ORDERED: FAT EMULSION IV 250 ML IV ONE (18:00)
[2022-12-04] MEDS ORDERED: MULTIVITAMIN -ADULT INJECTION 10 ML, ZINC/COPPER/MANGANESE/SELENIUM 1 ML in AMINO AC/EL... IV SCH (18:00)
[2022-12-04] MEDS: ROSUVASTATIN 10 MG TAB (CRESTOR) PO SCH (20:33)
[2022-12-05] VITALS (12 sets, daily range): BP systolic 117–127; BP diastolic 56–67; O2SAT 95–99
[2022-12-05] MEDS: INSULIN LISPRO (NovoLOG) PER UNIT SC SCH ×5 (06:03→23:34)
[2022-12-05] MEDS: MORPHINE 2 MG/ML 1ML VIAL IV PRN ×2 (06:08→22:01)
[2022-12-05 06:41] LABS: BASO % 0.2 % (0.0-1.0); EOS # 0.2 10^3/uL (0.0-0.5); EOS % 1.5 % (0.0-3.0); HEMATOCRIT 27.8 % (36.0-47.0); HEMOGLOBIN 8.7 g/dl (12.0-15.5); LYMPH % 6.6 % (24.0-44.0); MEAN CORPUSCULAR HEMOGLOBIN 28.5 pg (27.0-33.0); MEAN CORPUSCULAR HGB CONC 31.3 g/dl (32.0-36.5); MEAN CORPUSCULAR VOLUME 91.1 fl (80.0-96.0); MONO % 11.9 % (2.0-8.0); NEUTROPHILS # 11.6 10^3/uL (1.5-8.5); PLATELET COUNT, AUTOMATED 774 10^3/uL (150-450); RED BLOOD COUNT 3.05 10^6/uL (4.00-5.40); WHITE BLOOD COUNT 14.7 10^3/uL (4.0-10.0)
[2022-12-05 07:07] LABS: ALBUMIN 1.9 G/DL (3.2-5.2); ALKALINE PHOSPHATASE 87 U/L (46-116); ALT/SGPT < 9 U/L (7.0-40); AST/SGOT 15 U/L (<34); BILIRUBIN,TOTAL 0.2 MG/DL (0.3-1.2); BLOOD UREA NITROGEN 16 MG/DL (9-23); CALCIUM LEVEL 8.3 MG/DL (8.3-10.6); CARBON DIOXIDE LEVEL 36 MMOL/L (20-31); CHLORIDE LEVEL 98 MMOL/L (98-107); CREATININE FOR GFR 0.44 MG/DL (0.55-1.30); GLOMERULAR FILTRATION RATE > 60.0 (>39); GLUCOSE, FASTING 119 MG/DL (74-106); POTASSIUM SERUM 4.2 MMOL/L (3.5-5.1); SODIUM LEVEL 138 MMOL/L (136-145); TOTAL PROTEIN 5.3 G/DL (5.7-8.2)
[2022-12-05] MEDS: IPRATROPIUM 0.5MG/ALBUTEROL 2.5MG INH SOL UD 3ML (DUONEB) NEB SCH (07:07)
[2022-12-05] MEDS: TIOTROPIUM INHALER/CAPSULE (SPIRIVA) INH SCH (07:07)
[2022-12-05] MEDS: APIXABAN 5 MG TAB (ELIQUIS) PO SCH ×2 (08:10→20:49)
[2022-12-05] MEDS: SENOKOT S TAB PO SCH ×2 (08:10→20:49)
[2022-12-05] MEDS: MAGNESIUM OXIDE 400MG TAB (MAG-OX) PO SCH ×2 (08:10→20:50)
[2022-12-05] MEDS: predniSONE 5 MG TAB PO SCH (08:10)
[2022-12-05] MEDS: PANTOPRAZOLE 40MG VIAL IV SCH (08:11)
[2022-12-05] MEDS: GABAPENTIN 300 MG CAP PO SCH ×3 (08:11→20:50)
[2022-12-05] MEDS: PERCOCET 5MG/325MG TAB PO PRN ×5 (08:11→20:50)
[2022-12-05] MEDS: COLCHICINE 0.6 MG TABLET PO SCH (08:11)
[2022-12-05] MEDS: AMIODARONE 200 MG TAB (PACERONE) NG SCH (08:11)
[2022-12-05] MEDS: SUCRALFATE SUSP 1GM/10ML UD PO SCH ×2 (08:14→20:49)
[2022-12-05] MEDS: ANALGESIC BALM CRM 3OZ TOP SCH ×2 (08:14→20:51)
[2022-12-05] MEDS: LIDOCAINE 5% (LIDODERM) PATCH TD SCH (08:14)
[2022-12-05 08:36] LABS: MONO # 1.8 10^3/uL (0.0-0.8)
[2022-12-05] MEDS ORDERED: IPRATROPIUM 0.5MG/ALBUTEROL 2.5MG INH SOL UD 3ML (DUONEB) NEB PRN (11:35)
[2022-12-05] MEDS ORDERED: AMINO AC/ELECTROLYTE/DEX/CALC 2,000 ML IV SCH (18:00)
[2022-12-05] MEDS ORDERED: MULTIVITAMIN -ADULT INJECTION 10 ML, ZINC/COPPER/MANGANESE/SELENIUM 1 ML in AMINO AC/EL... IV SCH (18:00)
[2022-12-05] MEDS ORDERED: FAT EMULSION IV 250 ML IV ONE (18:00)
[2022-12-05] MEDS: ROSUVASTATIN 10 MG TAB (CRESTOR) PO SCH (20:49)
[2022-12-06 00:19] VITALS: BP 121/57
[2022-12-06] MEDS: PERCOCET 5MG/325MG TAB PO PRN ×3 (04:18→20:23)
[2022-12-06 04:39] VITALS: BP 119/59
[2022-12-06] MEDS: MORPHINE 2 MG/ML 1ML VIAL IV PRN ×4 (05:01→23:11)
[2022-12-06 06:17] LABS: BASO # 0.1 10^3/uL (0.0-0.2); BASO % 0.3 % (0.0-1.0); EOS # 0.2 10^3/uL (0.0-0.5); EOS % 1.3 % (0.0-3.0); HEMATOCRIT 26.8 % (36.0-47.0); HEMOGLOBIN 8.1 g/dl (12.0-15.5); LYMPH # 0.6 10^3/uL (1.5-5.0); LYMPH % 4.2 % (24.0-44.0); MEAN CORPUSCULAR HEMOGLOBIN 27.9 pg (27.0-33.0); MEAN CORPUSCULAR HGB CONC 30.2 g/dl (32.0-36.5); MEAN CORPUSCULAR VOLUME 92.4 fl (80.0-96.0); MONO % 11.9 % (2.0-8.0); NEUTROPHILS # 12.1 10^3/uL (1.5-8.5); NEUTROPHILS % 81.5 % (36.0-66.0); PLATELET COUNT, AUTOMATED 744 10^3/uL (150-450); WHITE BLOOD COUNT 14.9 10^3/uL (4.0-10.0)
[2022-12-06] MEDS: INSULIN LISPRO (NovoLOG) PER UNIT SC SCH ×3 (06:28→17:29)
[2022-12-06 06:37] LABS: ALBUMIN 1.9 G/DL (3.2-5.2); ALKALINE PHOSPHATASE 88 U/L (46-116); ALT/SGPT 10 U/L (7.0-40); AST/SGOT 14 U/L (<34); BILIRUBIN,TOTAL < 0.2 MG/DL (0.3-1.2); BLOOD UREA NITROGEN 20 MG/DL (9-23); CALCIUM LEVEL 8.4 MG/DL (8.3-10.6); CARBON DIOXIDE LEVEL 38 MMOL/L (20-31); CHLORIDE LEVEL 97 MMOL/L (98-107); CREATININE FOR GFR 0.46 MG/DL (0.55-1.30); GLOMERULAR FILTRATION RATE > 60.0 (>39); GLUCOSE, FASTING 133 MG/DL (74-106); MAGNESIUM LEVEL 2.1 MG/DL (1.8-2.4); SODIUM LEVEL 138 MMOL/L (136-145); TOTAL PROTEIN 5.1 G/DL (5.7-8.2)
[2022-12-06] MEDS: TIOTROPIUM INHALER/CAPSULE (SPIRIVA) INH SCH (07:02)
[2022-12-06 07:19] LABS: MONO # 1.8 10^3/uL (0.0-0.8)
[2022-12-06 07:39] VITALS: BP 110/62
[2022-12-06] MEDS: MAGNESIUM OXIDE 400MG TAB (MAG-OX) PO SCH ×2 (08:11→20:22)
[2022-12-06] MEDS: SENOKOT S TAB PO SCH ×2 (08:11→20:23)
[2022-12-06] MEDS: predniSONE 5 MG TAB PO SCH (08:11)
[2022-12-06] MEDS: GABAPENTIN 300 MG CAP PO SCH ×3 (08:11→20:22)
[2022-12-06] MEDS: SUCRALFATE SUSP 1GM/10ML UD PO SCH ×2 (08:11→20:21)
[2022-12-06] MEDS: PANTOPRAZOLE 40MG VIAL IV SCH (08:12)
[2022-12-06] MEDS: COLCHICINE 0.6 MG TABLET PO SCH (08:12)
[2022-12-06] MEDS: AMIODARONE 200 MG TAB (PACERONE) NG SCH (08:12)
[2022-12-06] MEDS: LIDOCAINE 5% (LIDODERM) PATCH TD SCH (08:16)
[2022-12-06] MEDS: ANALGESIC BALM CRM 3OZ TOP SCH ×2 (08:16→20:24)
[2022-12-06] MEDS ORDERED: NS 500 ML IV SCH (09:40)
[2022-12-06] MEDS: methocarbamoL 750 MG TAB PO SCH ×3 (10:13→20:22)
[2022-12-06 15:57] VITALS: BP 107/55
[2022-12-06] MEDS ORDERED: FAT EMULSION IV 250 ML IV ONE (18:00)
[2022-12-06] MEDS ORDERED: AMINO AC/ELECTROLYTE/DEX/CALC 2,000 ML IV SCH (18:00)
[2022-12-06 19:38] VITALS: BP 109/56
[2022-12-06] MEDS: ROSUVASTATIN 10 MG TAB (CRESTOR) PO SCH (20:22)
[2022-12-06] MEDS: RAMELTEON 8 MG TAB (ROZEREM) PO PRN (20:22)
[2022-12-06 23:26] VITALS: BP 101/55
[2022-12-07] VITALS (20 sets, daily range): BP systolic 84–122; BP diastolic 50–61; O2SAT 91–99
[2022-12-07] MEDS: INSULIN LISPRO (NovoLOG) PER UNIT SC SCH ×4 (00:17→18:39)
[2022-12-07 04:46] LABS: BASO % 0.3 % (0.0-1.0); EOS # 0.2 10^3/uL (0.0-0.5); HEMATOCRIT 26.8 % (36.0-47.0); HEMOGLOBIN 8.3 g/dl (12.0-15.5); LYMPH # 0.9 10^3/uL (1.5-5.0); LYMPH % 7.8 % (24.0-44.0); MEAN CORPUSCULAR HEMOGLOBIN 28.2 pg (27.0-33.0); MEAN CORPUSCULAR VOLUME 91.2 fl (80.0-96.0); MONO % 15.9 % (2.0-8.0); NEUTROPHILS # 8.6 10^3/uL (1.5-8.5); NEUTROPHILS % 73.4 % (36.0-66.0); PLATELET COUNT, AUTOMATED 709 10^3/uL (150-450); RED BLOOD COUNT 2.94 10^6/uL (4.00-5.40); WHITE BLOOD COUNT 11.7 10^3/uL (4.0-10.0)
[2022-12-07 04:47] LABS: MONO # 1.9 10^3/uL (0.0-0.8)
[2022-12-07 05:09] LABS: ALBUMIN 1.8 G/DL (3.2-5.2); ALKALINE PHOSPHATASE 92 U/L (46-116); ALT/SGPT 10 U/L (7.0-40); AST/SGOT 15 U/L (<34); BILIRUBIN,TOTAL 0.2 MG/DL (0.3-1.2); BLOOD UREA NITROGEN 23 MG/DL (9-23); CALCIUM LEVEL 7.9 MG/DL (8.3-10.6); CARBON DIOXIDE LEVEL 40 MMOL/L (20-31); CHLORIDE LEVEL 98 MMOL/L (98-107); CREATININE FOR GFR 0.47 MG/DL (0.55-1.30); GLOMERULAR FILTRATION RATE > 60.0 (>39); GLUCOSE, FASTING 124 MG/DL (74-106); MAGNESIUM LEVEL 2.2 MG/DL (1.8-2.4); POTASSIUM SERUM 3.6 MMOL/L (3.5-5.1); SODIUM LEVEL 137 MMOL/L (136-145); TOTAL PROTEIN 5.1 G/DL (5.7-8.2)
[2022-12-07] MEDS: MORPHINE 2 MG/ML 1ML VIAL IV PRN ×2 (06:22→15:30)
[2022-12-07] MEDS ORDERED: BUPIVACAINE/EPIN 0.25% 30ML VIAL As Ordered ONE (07:15)
[2022-12-07] MEDS ORDERED: LIDOCAINE 2% 100MG/5ML SDV (FOR ANES.) As Ordered ONE (07:20)
[2022-12-07] MEDS ORDERED: propofoL 200 MG/20 ML VIAL As Ordered ONE (07:20)
[2022-12-07] MEDS ORDERED: ROCURONIUM BROMIDE 50MG/5ML VIAL As Ordered ONE ×2 (07:20→09:29)
[2022-12-07] MEDS ORDERED: fentaNYL 250 MCG/5 ML INJECTION As Ordered ONE (07:21)
[2022-12-07] MEDS ORDERED: MIDAZOLAM INJ 2MG/2ML VIAL As Ordered ONE (07:22)
[2022-12-07] MEDS ORDERED: ceFAZolin 2 GM/D5W 50 ML IV BAG As Ordered ONE (07:45)
[2022-12-07] MEDS ORDERED: ceFAZolin SOD 2 GM in IV 1 EA IV ONE (08:00)
[2022-12-07] MEDS ORDERED: LACRILUBE (AKWA TEARS) OPHTH OINT 3.5GM As Ordered ONE (08:20)
[2022-12-07] MEDS ORDERED: PHENYLEPHRINE 10MG/ML 1ML VIAL As Ordered ONE (08:30)
[2022-12-07] MEDS ORDERED: ePHEDrine SULFATE 25 MG/5 ML(5MG/ML) SYRINGE As Ordered ONE (08:45)
[2022-12-07] MEDS ORDERED: PHENYLephrine 500MCG 5ML (100MCG/ML) SYRINGE As Ordered ONE (08:45)
[2022-12-07] MEDS ORDERED: ACETAMINOPHEN 1000MG 100ML IV BAG As Ordered ONE (10:18)
[2022-12-07] MEDS ORDERED: ONDANSETRON 4MG 2ML VIAL As Ordered ONE (10:18)
[2022-12-07] MEDS ORDERED: KETOROLAC 60MG 2ML VIAL As Ordered ONE (10:18)
[2022-12-07] MEDS ORDERED: HYDROmorphone HCL 2MG/ML 1ML VIAL As Ordered ONE (11:05)
[2022-12-07] MEDS ORDERED: ERTAPENEM 1GM VIAL (INVanz) As Ordered ONE (11:10)
[2022-12-07] MEDS ORDERED: SUGAMMADEX SODIUM 500 MG/5 ML VIAL (BRIDION) As Ordered ONE (11:18)
[2022-12-07] MEDS ORDERED: MORPHINE 2 MG/ML 1ML VIAL IV PRN (11:40)
[2022-12-07] MEDS ORDERED: fentaNYL 100 MCG/2 ML INJECTION IV PRN (11:40)
[2022-12-07] MEDS ORDERED: ONDANSETRON 4MG 2ML VIAL IV PRN (11:40)
[2022-12-07] MEDS ORDERED: oxyCODONE 5MG TAB PO PRN (11:40)
[2022-12-07] MEDS: methocarbamoL 750 MG TAB PO SCH ×3 (13:44→20:56)
[2022-12-07] MEDS: GABAPENTIN 300 MG CAP PO SCH ×3 (13:44→20:51)
[2022-12-07] MEDS: SUCRALFATE SUSP 1GM/10ML UD PO SCH ×2 (14:00→20:51)
[2022-12-07] MEDS: PANTOPRAZOLE 40MG VIAL IV SCH (14:00)
[2022-12-07] MEDS: predniSONE 5 MG TAB PO SCH (14:01)
[2022-12-07] MEDS: MAGNESIUM OXIDE 400MG TAB (MAG-OX) PO SCH ×2 (14:01→20:52)
[2022-12-07] MEDS: SENOKOT S TAB PO SCH ×2 (14:01→20:52)
[2022-12-07] MEDS: COLCHICINE 0.6 MG TABLET PO SCH (14:01)
[2022-12-07] MEDS: LIDOCAINE 5% (LIDODERM) PATCH TD SCH (14:03)
[2022-12-07] MEDS: ANALGESIC BALM CRM 3OZ TOP SCH ×3 (14:04→20:52)
[2022-12-07] MEDS: PERCOCET 5MG/325MG TAB PO PRN (14:11)
[2022-12-07] MEDS: AMIODARONE 200 MG TAB (PACERONE) NG SCH (14:14)
[2022-12-07] MEDS ORDERED: INSULIN LISPRO (NovoLOG) PER UNIT SC SCH (14:15)
[2022-12-07] MEDS: TIOTROPIUM INHALER/CAPSULE (SPIRIVA) INH SCH (15:11)
[2022-12-07] MEDS ORDERED: NS 500 ML IV ONE (17:05)
[2022-12-07] MEDS ORDERED: MULTIVITAMIN -ADULT INJECTION 10 ML, ZINC/COPPER/MANGANESE/SELENIUM 1 ML in AMINO AC/EL... IV SCH (18:00)
[2022-12-07] MEDS ORDERED: FAT EMULSION IV 250 ML IV ONE (18:00)
[2022-12-07] MEDS: ROSUVASTATIN 10 MG TAB (CRESTOR) PO SCH (20:52)
[2022-12-08] VITALS (22 sets, daily range): BP systolic 102–118; BP diastolic 48–62; O2SAT 93–100
[2022-12-08] MEDS: INSULIN LISPRO (NovoLOG) PER UNIT SC SCH ×4 (00:37→18:36)
[2022-12-08] MEDS: MORPHINE 2 MG/ML 1ML VIAL IV PRN ×2 (00:49→10:22)
[2022-12-08 05:00] LABS: BLOOD UREA NITROGEN 31 MG/DL (9-23); CALCIUM LEVEL 7.7 MG/DL (8.3-10.6); CARBON DIOXIDE LEVEL 34 MMOL/L (20-31); CHLORIDE LEVEL 99 MMOL/L (98-107); CREATININE FOR GFR 0.49 MG/DL (0.55-1.30); GLOMERULAR FILTRATION RATE > 60.0 (>39); GLUCOSE, FASTING 137 MG/DL (74-106); MAGNESIUM LEVEL 2.2 MG/DL (1.8-2.4); POTASSIUM SERUM 4.3 MMOL/L (3.5-5.1); SODIUM LEVEL 136 MMOL/L (136-145)
[2022-12-08 05:06] LABS: HEMATOCRIT 25.2 % (36.0-47.0); HEMOGLOBIN 8.1 g/dl (12.0-15.5); MEAN CORPUSCULAR HEMOGLOBIN 28.8 pg (27.0-33.0); MEAN CORPUSCULAR HGB CONC 32.1 g/dl (32.0-36.5); MEAN CORPUSCULAR VOLUME 89.7 fl (80.0-96.0); PLATELET COUNT, AUTOMATED 747 10^3/uL (150-450); RED BLOOD COUNT 2.81 10^6/uL (4.00-5.40); WHITE BLOOD COUNT 22.7 10^3/uL (4.0-10.0)
[2022-12-08 05:17] LABS: LYMPHOCYTES 3 % (16-44); MONOCYTES 6 % (0-5); NEUTROPHILS 91 % (28-66)
[2022-12-08 05:18] LABS: ANISOCYTOSIS 1+; HYPOCHROMASIA 1+; PLATELET ESTIMATE INCREASED (NORMAL)
[2022-12-08] MEDS: PERCOCET 5MG/325MG TAB PO PRN ×2 (05:46→13:37)
[2022-12-08] MEDS: TIOTROPIUM INHALER/CAPSULE (SPIRIVA) INH SCH (08:07)
[2022-12-08] MEDS: SENOKOT S TAB PO SCH (08:13)
[2022-12-08] MEDS: SUCRALFATE SUSP 1GM/10ML UD PO SCH ×2 (08:13→21:27)
[2022-12-08] MEDS: COLCHICINE 0.6 MG TABLET PO SCH (08:14)
[2022-12-08] MEDS: MAGNESIUM OXIDE 400MG TAB (MAG-OX) PO SCH ×2 (08:14→21:26)
[2022-12-08] MEDS: GABAPENTIN 300 MG CAP PO SCH ×3 (08:14→21:27)
[2022-12-08] MEDS: methocarbamoL 750 MG TAB PO SCH ×3 (08:14→21:00)
[2022-12-08] MEDS: LIDOCAINE 5% (LIDODERM) PATCH TD SCH (08:15)
[2022-12-08] MEDS: PANTOPRAZOLE 40MG VIAL IV SCH (08:15)
[2022-12-08] MEDS: predniSONE 5 MG TAB PO SCH (08:15)
[2022-12-08] MEDS: ANALGESIC BALM CRM 3OZ TOP SCH ×2 (08:16→21:28)
[2022-12-08] MEDS: APIXABAN 5 MG TAB (ELIQUIS) PO SCH ×2 (09:44→21:27)
[2022-12-08] MEDS: PIPERACILLIN/TAZOBACTAM SOD 3.375 GM in D5W MINI-BAG PLUS 50 ML IV SCH ×3 (09:45→21:24)
[2022-12-08] MEDS: AMIODARONE 200 MG TAB (PACERONE) NG SCH (09:46)
[2022-12-08] MEDS ORDERED: KETOROLAC 30 MG/ML 1ML VIAL IV SCH (13:00)
[2022-12-08] MEDS ORDERED: LIDOCAINE 1% MDV 20ML VIAL As Ordered ONE (14:00)
[2022-12-08] MEDS ORDERED: FAT EMULSION IV 250 ML IV ONE (18:00)
[2022-12-08] MEDS ORDERED: AMINO AC/ELECTROLYTE/DEX/CALC 2,000 ML IV SCH (18:00)
[2022-12-08] MEDS: DOCUSATE SODIUM 100MG CAPSULE PO SCH (21:00)
[2022-12-08] MEDS: SENNA 8.6 MG TAB (SENOKOT) PO SCH (21:27)
[2022-12-08] MEDS: ROSUVASTATIN 10 MG TAB (CRESTOR) PO SCH (21:27)
[2022-12-08] MEDS: KETOROLAC 30 MG/ML 1ML VIAL IV SCH (21:29)
[2022-12-09] VITALS (32 sets, daily range): BP systolic 107–151; BP diastolic 56–75; O2SAT 95–99
[2022-12-09] MEDS: INSULIN LISPRO (NovoLOG) PER UNIT SC SCH ×4 (00:26→17:45)
[2022-12-09] MEDS: KETOROLAC 30 MG/ML 1ML VIAL IV SCH (03:23)
[2022-12-09] MEDS: PIPERACILLIN/TAZOBACTAM SOD 3.375 GM in D5W MINI-BAG PLUS 50 ML IV SCH ×4 (03:23→21:29)
[2022-12-09 05:52] LABS: BASO % 0.2 % (0.0-1.0); EOS # 0.1 10^3/uL (0.0-0.5); EOS % 0.9 % (0.0-3.0); LYMPH # 0.7 10^3/uL (1.5-5.0); LYMPH % 4.6 % (24.0-44.0); MEAN CORPUSCULAR HEMOGLOBIN 28.1 pg (27.0-33.0); MEAN CORPUSCULAR HGB CONC 30.9 g/dl (32.0-36.5); MEAN CORPUSCULAR VOLUME 90.9 fl (80.0-96.0); MONO # 1.3 10^3/uL (0.0-0.8); MONO % 7.9 % (2.0-8.0); NEUTROPHILS # 13.6 10^3/uL (1.5-8.5); NEUTROPHILS % 85.6 % (36.0-66.0); PLATELET COUNT, AUTOMATED 655 10^3/uL (150-450); RED BLOOD COUNT 2.42 10^6/uL (4.00-5.40); WHITE BLOOD COUNT 15.9 10^3/uL (4.0-10.0)
[2022-12-09 05:54] LABS: HEMOGLOBIN 6.8 g/dl (12.0-15.5)
[2022-12-09 06:16] LABS: ALBUMIN 1.6 G/DL (3.2-5.2); ALKALINE PHOSPHATASE 94 U/L (46-116); ALT/SGPT 16 U/L (7.0-40); AST/SGOT 28 U/L (<34); BILIRUBIN,TOTAL 0.2 MG/DL (0.3-1.2); BLOOD UREA NITROGEN 24 MG/DL (9-23); CALCIUM LEVEL 7.8 MG/DL (8.3-10.6); CARBON DIOXIDE LEVEL 35 MMOL/L (20-31); CHLORIDE LEVEL 100 MMOL/L (98-107); CREATININE FOR GFR 0.55 MG/DL (0.55-1.30); GLOMERULAR FILTRATION RATE > 60.0 (>39); GLUCOSE, FASTING 129 MG/DL (74-106); POTASSIUM SERUM 4.1 MMOL/L (3.5-5.1); SODIUM LEVEL 139 MMOL/L (136-145); TOTAL PROTEIN 4.6 G/DL (5.7-8.2)
[2022-12-09 07:06] LABS: INR 1.66; PROTHROMBIN TIME 19.9 SECONDS (12.5-14.5)
[2022-12-09] MEDS: TIOTROPIUM INHALER/CAPSULE (SPIRIVA) INH SCH (07:10)
[2022-12-09] MEDS ORDERED: MAGNESIUM CITRATE 300ML BTL PO ONE (08:00)
[2022-12-09] MEDS ORDERED: BISACODYL 10MG SUPP PR ONE (08:00)
[2022-12-09] MEDS: DOCUSATE SODIUM 100MG CAPSULE PO SCH ×3 (09:00→20:04)
[2022-12-09] MEDS: GABAPENTIN 300 MG CAP PO SCH ×3 (09:21→20:25)
[2022-12-09] MEDS: SUCRALFATE SUSP 1GM/10ML UD PO SCH ×2 (09:21→20:25)
[2022-12-09] MEDS: AMIODARONE 200 MG TAB (PACERONE) NG SCH (09:21)
[2022-12-09] MEDS: MAGNESIUM OXIDE 400MG TAB (MAG-OX) PO SCH ×2 (09:21→20:24)
[2022-12-09] MEDS: methocarbamoL 750 MG TAB PO SCH ×3 (09:21→20:24)
[2022-12-09] MEDS: predniSONE 5 MG TAB PO SCH (09:21)
[2022-12-09] MEDS: COLCHICINE 0.6 MG TABLET PO SCH (09:21)
[2022-12-09] MEDS: ANALGESIC BALM CRM 3OZ TOP SCH ×2 (09:23→20:24)
[2022-12-09] MEDS: LIDOCAINE 5% (LIDODERM) PATCH TD SCH (09:23)
[2022-12-09] MEDS: PANTOPRAZOLE 40MG VIAL IV SCH ×2 (09:23→20:23)
[2022-12-09] MEDS: PERCOCET 5MG/325MG TAB PO PRN ×2 (13:00→18:02)
[2022-12-09] MEDS: MORPHINE 2 MG/ML 1ML VIAL IV PRN ×2 (15:01→21:28)
[2022-12-09 15:47] LABS: HEMATOCRIT 30.3 % (36.0-47.0); MEAN CORPUSCULAR VOLUME 87.8 fl (80.0-96.0); PLATELET COUNT, AUTOMATED 581 10^3/uL (150-450); RED BLOOD COUNT 3.45 10^6/uL (4.00-5.40); WHITE BLOOD COUNT 13.8 10^3/uL (4.0-10.0)
[2022-12-09] MEDS ORDERED: FAT EMULSION IV 250 ML IV ONE (18:00)
[2022-12-09] MEDS ORDERED: MULTIVITAMIN -ADULT INJECTION 10 ML, ZINC/COPPER/MANGANESE/SELENIUM 1 ML in AMINO AC/EL... IV SCH (18:00)
[2022-12-09] MEDS: SENNA 8.6 MG TAB (SENOKOT) PO SCH (20:24)
[2022-12-09] MEDS: ROSUVASTATIN 10 MG TAB (CRESTOR) PO SCH (20:24)
[2022-12-10] MEDS: INSULIN LISPRO (NovoLOG) PER UNIT SC SCH ×4 (00:48→18:00)
[2022-12-10 03:20] VITALS: BP 135/65
[2022-12-10] MEDS: PIPERACILLIN/TAZOBACTAM SOD 3.375 GM in D5W MINI-BAG PLUS 50 ML IV SCH ×4 (04:47→22:31)
[2022-12-10] MEDS: PERCOCET 5MG/325MG TAB PO PRN ×4 (05:04→22:30)
[2022-12-10 06:07] LABS: BASO % 0.4 % (0.0-1.0); EOS # 0.4 10^3/uL (0.0-0.5); EOS % 3.7 % (0.0-3.0); HEMATOCRIT 29.8 % (36.0-47.0); HEMOGLOBIN 9.6 g/dl (12.0-15.5); LYMPH # 0.7 10^3/uL (1.5-5.0); MEAN CORPUSCULAR HEMOGLOBIN 28.6 pg (27.0-33.0); MEAN CORPUSCULAR HGB CONC 32.2 g/dl (32.0-36.5); MEAN CORPUSCULAR VOLUME 88.7 fl (80.0-96.0); MONO # 1.3 10^3/uL (0.0-0.8); MONO % 12.2 % (2.0-8.0); NEUTROPHILS # 7.9 10^3/uL (1.5-8.5); NEUTROPHILS % 76.1 % (36.0-66.0); PLATELET COUNT, AUTOMATED 580 10^3/uL (150-450); RED BLOOD COUNT 3.36 10^6/uL (4.00-5.40); WHITE BLOOD COUNT 10.4 10^3/uL (4.0-10.0)
[2022-12-10 06:30] LABS: ALBUMIN 1.6 G/DL (3.2-5.2); ALKALINE PHOSPHATASE 98 U/L (46-116); ALT/SGPT 28 U/L (7.0-40); AST/SGOT 33 U/L (<34); BILIRUBIN,TOTAL 0.3 MG/DL (0.3-1.2); BLOOD UREA NITROGEN 18 MG/DL (9-23); CALCIUM LEVEL 7.9 MG/DL (8.3-10.6); CARBON DIOXIDE LEVEL 33 MMOL/L (20-31); CHLORIDE LEVEL 101 MMOL/L (98-107); CREATININE FOR GFR 0.49 MG/DL (0.55-1.30); GLOMERULAR FILTRATION RATE > 60.0 (>39); GLUCOSE, FASTING 115 MG/DL (74-106); POTASSIUM SERUM 4.1 MMOL/L (3.5-5.1); SODIUM LEVEL 138 MMOL/L (136-145); TOTAL PROTEIN 4.8 G/DL (5.7-8.2)
[2022-12-10] MEDS: TIOTROPIUM INHALER/CAPSULE (SPIRIVA) INH SCH (07:05)
[2022-12-10 08:00] VITALS: BP 146/75
[2022-12-10] MEDS: MORPHINE 2 MG/ML 1ML VIAL IV PRN ×2 (08:32→16:04)
[2022-12-10] MEDS: PANTOPRAZOLE 40MG VIAL IV SCH ×2 (10:04→22:31)
[2022-12-10] MEDS: LIDOCAINE 5% (LIDODERM) PATCH TD SCH (10:18)
[2022-12-10] MEDS: SUCRALFATE SUSP 1GM/10ML UD PO SCH ×2 (10:20→22:29)
[2022-12-10] MEDS: GABAPENTIN 300 MG CAP PO SCH ×3 (10:20→22:29)
[2022-12-10] MEDS: AMIODARONE 200 MG TAB (PACERONE) NG SCH (10:21)
[2022-12-10] MEDS: methocarbamoL 750 MG TAB PO SCH ×3 (10:21→22:30)
[2022-12-10] MEDS: COLCHICINE 0.6 MG TABLET PO SCH (10:21)
[2022-12-10] MEDS: MAGNESIUM OXIDE 400MG TAB (MAG-OX) PO SCH ×2 (10:22→22:30)
[2022-12-10] MEDS: DOCUSATE SODIUM 100MG CAPSULE PO SCH ×2 (10:23→21:00)
[2022-12-10] MEDS: predniSONE 5 MG TAB PO SCH (10:23)
[2022-12-10] MEDS: ANALGESIC BALM CRM 3OZ TOP SCH ×2 (10:24→22:31)
[2022-12-10 12:00] VITALS: BP 119/63
[2022-12-10] MEDS ORDERED: MIRALAX *UNIT DOSE* 17GM PACKET PO ONE (16:00)
[2022-12-10] MEDS ORDERED: PILL CUTTER 1 EACH XX PRN (16:10)
[2022-12-10] MEDS ORDERED: FAT EMULSION IV 250 ML IV ONE (18:00)
[2022-12-10] MEDS ORDERED: AMINO AC/ELECTROLYTE/DEX/CALC 2,000 ML IV SCH (18:00)
[2022-12-10 20:00] VITALS: BP 152/74
[2022-12-10] MEDS: ROSUVASTATIN 10 MG TAB (CRESTOR) PO SCH (22:30)
[2022-12-10] MEDS: SENNA 8.6 MG TAB (SENOKOT) PO SCH (22:31)
[2022-12-11] VITALS (18 sets, daily range): BP systolic 146–163; BP diastolic 73–90; O2SAT 93–98
[2022-12-11] MEDS: PIPERACILLIN/TAZOBACTAM SOD 3.375 GM in D5W MINI-BAG PLUS 50 ML IV SCH ×2 (04:40→09:24)
[2022-12-11] MEDS: PERCOCET 5MG/325MG TAB PO PRN ×4 (04:50→22:19)
[2022-12-11] MEDS: INSULIN LISPRO (NovoLOG) PER UNIT SC SCH ×3 (06:00→13:44)
[2022-12-11 06:21] LABS: HEMATOCRIT 33.5 % (36.0-47.0); HEMOGLOBIN 10.8 g/dl (12.0-15.5); MEAN CORPUSCULAR HEMOGLOBIN 28.8 pg (27.0-33.0); MEAN CORPUSCULAR HGB CONC 32.2 g/dl (32.0-36.5); MEAN CORPUSCULAR VOLUME 89.3 fl (80.0-96.0); PLATELET COUNT, AUTOMATED 639 10^3/uL (150-450); RED BLOOD COUNT 3.75 10^6/uL (4.00-5.40); WHITE BLOOD COUNT 12.4 10^3/uL (4.0-10.0)
[2022-12-11] MEDS: MORPHINE 2 MG/ML 1ML VIAL IV PRN ×2 (06:35→18:32)
[2022-12-11 06:41] LABS: ALBUMIN 1.9 G/DL (3.2-5.2); ALKALINE PHOSPHATASE 109 U/L (46-116); ALT/SGPT 23 U/L (7.0-40); AST/SGOT 25 U/L (<34); BILIRUBIN,TOTAL 0.2 MG/DL (0.3-1.2); BLOOD UREA NITROGEN 13 MG/DL (9-23); CALCIUM LEVEL 8.3 MG/DL (8.3-10.6); CARBON DIOXIDE LEVEL 34 MMOL/L (20-31); CHLORIDE LEVEL 99 MMOL/L (98-107); CREATININE FOR GFR 0.46 MG/DL (0.55-1.30); GLOMERULAR FILTRATION RATE > 60.0 (>39); GLUCOSE, FASTING 110 MG/DL (74-106); POTASSIUM SERUM 4.1 MMOL/L (3.5-5.1); SODIUM LEVEL 138 MMOL/L (136-145); TOTAL PROTEIN 5.4 G/DL (5.7-8.2)
[2022-12-11] MEDS: TIOTROPIUM INHALER/CAPSULE (SPIRIVA) INH SCH (07:22)
[2022-12-11 07:26] LABS: ANISOCYTOSIS 1+; EOSINOPHILS 5 % (0-3); LYMPHOCYTES 5 % (16-44); MONOCYTES 10 % (0-5); MYELOCYTES 1 % (0-0); NEUTROPHILS 79 % (28-66); PLATELET ESTIMATE INCREASED (NORMAL)
[2022-12-11] MEDS: SUCRALFATE SUSP 1GM/10ML UD PO SCH ×2 (09:24→20:22)
[2022-12-11] MEDS: PANTOPRAZOLE 40MG VIAL IV SCH ×2 (09:25→20:22)
[2022-12-11] MEDS: GABAPENTIN 300 MG CAP PO SCH ×3 (09:25→20:24)
[2022-12-11] MEDS: DOCUSATE SODIUM 100MG CAPSULE PO SCH (09:25)
[2022-12-11] MEDS: MAGNESIUM OXIDE 400MG TAB (MAG-OX) PO SCH ×3 (09:25→20:24)
[2022-12-11] MEDS: methocarbamoL 750 MG TAB PO SCH ×3 (09:25→20:23)
[2022-12-11] MEDS: predniSONE 5 MG TAB PO SCH (09:25)
[2022-12-11] MEDS: APIXABAN 5 MG TAB (ELIQUIS) PO SCH ×2 (09:25→20:23)
[2022-12-11] MEDS: AMIODARONE 200 MG TAB (PACERONE) NG SCH (09:25)
[2022-12-11] MEDS: ANALGESIC BALM CRM 3OZ TOP SCH ×2 (09:26→20:25)
[2022-12-11] MEDS: LIDOCAINE 5% (LIDODERM) PATCH TD SCH (09:26)
[2022-12-11] MEDS: ONDANSETRON 4MG 2ML VIAL IV PRN ×2 (10:14→20:22)
[2022-12-11] MEDS ORDERED: MORPHINE 2 MG/ML 1ML VIAL IV ONE (10:35)
[2022-12-11] MEDS ORDERED: METOCLOPRAMIDE 10MG TAB PO PRN (12:20)
[2022-12-11] MEDS: SENNA 8.6 MG TAB (SENOKOT) PO SCH (20:23)
[2022-12-11] MEDS: ROSUVASTATIN 10 MG TAB (CRESTOR) PO SCH (20:23)
[2022-12-11] MEDS: RAMELTEON 8 MG TAB (ROZEREM) PO PRN (20:25)
[2022-12-12] VITALS (26 sets, daily range): BP systolic 113–162; BP diastolic 59–82
[2022-12-12] MEDS: NS 1,000 ML IV SCH ×2 (01:00→14:03)
[2022-12-12] MEDS: ONDANSETRON 4MG 2ML VIAL IV PRN (05:43)
[2022-12-12 05:50] LABS: BASO # 0.1 10^3/uL (0.0-0.2); BASO % 0.3 % (0.0-1.0); EOS # 0.3 10^3/uL (0.0-0.5); EOS % 1.3 % (0.0-3.0); HEMATOCRIT 39.3 % (36.0-47.0); LYMPH # 0.9 10^3/uL (1.5-5.0); MEAN CORPUSCULAR HGB CONC 30.5 g/dl (32.0-36.5); MEAN CORPUSCULAR VOLUME 91.6 fl (80.0-96.0); MONO # 1.2 10^3/uL (0.0-0.8); MONO % 5.5 % (2.0-8.0); NEUTROPHILS # 19.4 10^3/uL (1.5-8.5); NEUTROPHILS % 88.5 % (36.0-66.0); PLATELET COUNT, AUTOMATED 587 10^3/uL (150-450); RED BLOOD COUNT 4.29 10^6/uL (4.00-5.40)
[2022-12-12] MEDS ORDERED: ACETAMINOPHEN 650MG SUPP PR ONE (06:00)
[2022-12-12 06:16] LABS: ALBUMIN 2.3 G/DL (3.2-5.2); ALKALINE PHOSPHATASE 136 U/L (46-116); ALT/SGPT 21 U/L (7.0-40); AST/SGOT 25 U/L (<34); BILIRUBIN,TOTAL 0.6 MG/DL (0.3-1.2); BLOOD UREA NITROGEN 13 MG/DL (9-23); CALCIUM LEVEL 8.7 MG/DL (8.3-10.6); CARBON DIOXIDE LEVEL 32 MMOL/L (20-31); CHLORIDE LEVEL 97 MMOL/L (98-107); CREATININE FOR GFR 0.56 MG/DL (0.55-1.30); GLOMERULAR FILTRATION RATE > 60.0 (>39); GLUCOSE, FASTING 78 MG/DL (74-106); POTASSIUM SERUM 4.7 MMOL/L (3.5-5.1); SODIUM LEVEL 135 MMOL/L (136-145); TOTAL PROTEIN 6.4 G/DL (5.7-8.2)
[2022-12-12] MEDS ORDERED: SODIUM CHLORIDE 0.9% 1000ML IV ONE (06:25)
[2022-12-12] MEDS ORDERED: PIPERACILLIN/TAZOBACTAM SOD 3.375 GM in D5W MINI-BAG PLUS 50 ML IV SCH (06:25)
[2022-12-12] MEDS ORDERED: LEVALBUTEROL 1.25MG 0.5ML CONCENTRATE NEB NEB PRN (06:55)
[2022-12-12] MEDS ORDERED: MORPHINE 2 MG/ML 1ML VIAL IV PRN (07:10)
[2022-12-12] MEDS ORDERED: ISOVUE-370 76% 100ML VIAL As Ordered ONE (07:45)
[2022-12-12] MEDS: PIPERACILLIN/TAZOBACTAM SOD 3.375 GM in D5W MINI-BAG PLUS 50 ML IV SCH ×2 (07:53→14:03)
[2022-12-12] MEDS ORDERED: LEVALBUTEROL 1.25MG 0.5ML CONCENTRATE NEB NEB SCH (08:00)
[2022-12-12 08:01] LABS: ABG BASE EXCESS 5.8 (-2.0-2.0); ABG HCO3 28.7 MMOL/L (22.0-26.0); ABG O2 SATURATION 92.6 % (95.0-99.0); ABG PARTIAL PRESSURE CO2 35.6 mmHg (35.0-45.0); ABG PARTIAL PRESSURE O2 58.9 mmHg (75.0-100.0); ABG STANDARD HCO3 29.6 MMOL/L. (22.0-26.0); ABG TOTAL CO2 29.8 MMOL/L (23.0-31.0); ABG pH (ARTERIAL) 7.525 UNITS (7.350-7.450)
[2022-12-12] MEDS ORDERED: ALBUTEROL SULFATE 2.5MG/0.5ML INH NEB SOLN NEB PRN (08:10)
[2022-12-12 08:12] LABS: CK-MB VALUE MASS < 1.0 NG/ML (<3.6)
[2022-12-12 08:13] LABS: CPK CREATINE PHOSPHOKINASE 23 U/L (34-145); MB/CK RELATIVE INDEX 4.34 (< OR =4)
[2022-12-12] MEDS: ALBUTEROL SULFATE 2.5MG/0.5ML INH NEB SOLN NEB SCH ×4 (08:49→19:20)
[2022-12-12] MEDS: TIOTROPIUM INHALER/CAPSULE (SPIRIVA) INH SCH (08:50)
[2022-12-12] MEDS ORDERED: ACETAMINOPHEN 1000MG 100ML IV BAG IV STA (08:58)
[2022-12-12] MEDS: APIXABAN 5 MG TAB (ELIQUIS) PO SCH (09:00)
[2022-12-12] MEDS: methocarbamoL 750 MG TAB PO SCH ×3 (09:00→21:00)
[2022-12-12] MEDS ORDERED: VANCOMYCIN HCL 1,000 MG, VIAL MATE ADAPTER 1 EACH in NS 250 ML IV ONE ×2 (09:00→10:00)
[2022-12-12] MEDS: SUCRALFATE SUSP 1GM/10ML UD PO SCH ×2 (09:00→21:00)
[2022-12-12] MEDS: predniSONE 5 MG TAB PO SCH (09:00)
[2022-12-12] MEDS: GABAPENTIN 300 MG CAP PO SCH ×3 (09:00→21:00)
[2022-12-12] MEDS: LIDOCAINE 5% (LIDODERM) PATCH TD SCH (09:49)
[2022-12-12] MEDS: AMIODARONE HCL 150 MG in IV 1 EA IV SCH (09:49)
[2022-12-12] MEDS: PANTOPRAZOLE 40MG VIAL IV SCH ×2 (09:50→21:45)
[2022-12-12] MEDS: ANALGESIC BALM CRM 3OZ TOP SCH ×2 (09:50→21:48)
[2022-12-12] MEDS ORDERED: diltiaZEM 125 MG in NS 100 ML IV SCH (11:00)
[2022-12-12] MEDS: MAGNESIUM OXIDE 400MG TAB (MAG-OX) PO SCH ×2 (12:00→21:00)
[2022-12-12] MEDS ORDERED: ENOXAPARIN 40MG/0.4ML SYRINGE (J1650 PER 10MG) SC SCH (14:00)
[2022-12-12] MEDS: methylPREDNISolone 40MG 1ML VIAL IV SCH (14:03)
[2022-12-12] MEDS ORDERED: SODIUM CHLORIDE 0.9% INJ 10 ML SYR IV PRN (15:00)
[2022-12-12 15:38] LABS: VENOUS HCO3 28.7 MMOL/L (23.0-27.0); VENOUS O2 SATURATION 98.8 % (60.0-80.0); VENOUS PARTIAL PRESSURE CO2 48.8 mmHg (38.0-50.0); VENOUS PARTIAL PRESSURE O2 133.6 mmHg (30.0-50.0); VENOUS PH 7.387 UNITS (7.330-7.430); VENOUS STANDARD HCO3 27.2 MMOL/L; VENOUS TOTAL CO2 30.2 MMOL/L (24.0-28.0)
[2022-12-12] MEDS ORDERED: ACETAMINOPHEN TAB 650MG DOSE (2X325MG) PO PRN (19:45)
[2022-12-12] MEDS: ROSUVASTATIN 10 MG TAB (CRESTOR) PO SCH (21:00)
[2022-12-12] MEDS: VANCOMYCIN HCL 1,000 MG, VIAL MATE ADAPTER 1 EACH in NS 250 ML IV SCH (21:46)
[2022-12-12] MEDS: MEROPENEM INJ 1 GM in IV 1 EA IV SCH (23:08)
[2022-12-13] VITALS (14 sets, daily range): BP systolic 132–175; BP diastolic 62–93
[2022-12-13] MEDS: MEROPENEM INJ 1 GM in IV 1 EA IV SCH ×3 (05:48→21:40)
[2022-12-13 06:12] LABS: BASO % 0.2 % (0.0-1.0); EOS % 0.2 % (0.0-3.0); HEMATOCRIT 28.3 % (36.0-47.0); LYMPH # 0.7 10^3/uL (1.5-5.0); LYMPH % 2.9 % (24.0-44.0); MEAN CORPUSCULAR HEMOGLOBIN 28.7 pg (27.0-33.0); MEAN CORPUSCULAR HGB CONC 31.4 g/dl (32.0-36.5); MEAN CORPUSCULAR VOLUME 91.3 fl (80.0-96.0); MONO # 1.5 10^3/uL (0.0-0.8); MONO % 6.2 % (2.0-8.0); NEUTROPHILS # 21.2 10^3/uL (1.5-8.5); NEUTROPHILS % 89.9 % (36.0-66.0); PLATELET COUNT, AUTOMATED 533 10^3/uL (150-450); WHITE BLOOD COUNT 23.6 10^3/uL (4.0-10.0)
[2022-12-13 06:14] LABS: HEMOGLOBIN 8.9 g/dl (12.0-15.5)
[2022-12-13 07:29] LABS: HEMATOCRIT 29.2 % (36.0-47.0); HEMOGLOBIN 9.1 g/dl (12.0-15.5); MEAN CORPUSCULAR HEMOGLOBIN 28.5 pg (27.0-33.0); MEAN CORPUSCULAR HGB CONC 31.2 g/dl (32.0-36.5); MEAN CORPUSCULAR VOLUME 91.5 fl (80.0-96.0); PLATELET COUNT, AUTOMATED 538 10^3/uL (150-450); RED BLOOD COUNT 3.19 10^6/uL (4.00-5.40)
[2022-12-13] MEDS: TIOTROPIUM INHALER/CAPSULE (SPIRIVA) INH SCH (07:33)
[2022-12-13] MEDS: ALBUTEROL SULFATE 2.5MG/0.5ML INH NEB SOLN NEB SCH ×4 (07:33→19:43)
[2022-12-13 07:53] LABS: ALBUMIN 1.6 G/DL (3.2-5.2); ALKALINE PHOSPHATASE 112 U/L (46-116); ALT/SGPT 18 U/L (7.0-40); AST/SGOT 15 U/L (<34); BILIRUBIN,TOTAL 0.4 MG/DL (0.3-1.2); BLOOD UREA NITROGEN 13 MG/DL (9-23); CALCIUM LEVEL 8.2 MG/DL (8.3-10.6); CARBON DIOXIDE LEVEL 28 MMOL/L (20-31); CHLORIDE LEVEL 105 MMOL/L (98-107); CREATININE FOR GFR 0.56 MG/DL (0.55-1.30); GLOMERULAR FILTRATION RATE > 60.0 (>39); GLUCOSE, FASTING 76 MG/DL (74-106); POTASSIUM SERUM 3.8 MMOL/L (3.5-5.1); SODIUM LEVEL 142 MMOL/L (136-145)
[2022-12-13] MEDS: VANCOMYCIN HCL 1,000 MG, VIAL MATE ADAPTER 1 EACH in NS 250 ML IV SCH ×2 (08:07→20:21)
[2022-12-13] MEDS: PANTOPRAZOLE 40MG VIAL IV SCH ×2 (08:07→20:21)
[2022-12-13] MEDS: MORPHINE 2 MG/ML 1ML VIAL IV PRN ×4 (08:08→20:28)
[2022-12-13] MEDS: LIDOCAINE 5% (LIDODERM) PATCH TD SCH (08:09)
[2022-12-13] MEDS: SUCRALFATE SUSP 1GM/10ML UD PO SCH ×2 (08:56→20:01)
[2022-12-13] MEDS: GABAPENTIN 300 MG CAP PO SCH ×3 (08:56→20:01)
[2022-12-13] MEDS: SODIUM CHLORIDE 0.9% INJ 10 ML SYR IV SCH (08:56)
[2022-12-13] MEDS: methocarbamoL 750 MG TAB PO SCH (08:56)
[2022-12-13] MEDS: ANALGESIC BALM CRM 3OZ TOP SCH ×3 (09:00→21:41)
[2022-12-13] MEDS: AMIODARONE HCL 150 MG in IV 1 EA IV SCH (10:30)
[2022-12-13] MEDS: ONDANSETRON 4MG 2ML VIAL IV PRN (11:11)
[2022-12-13] MEDS ORDERED: MAG SULF 1GM/100ML (MAG RUN) 1 GM in IV 1 EA IV ONE (12:00)
[2022-12-13] MEDS: MAGNESIUM OXIDE 400MG TAB (MAG-OX) PO SCH (12:00)
[2022-12-13] MEDS: methylPREDNISolone 40MG 1ML VIAL IV SCH (13:40)
[2022-12-13] MEDS: diltiaZEM 125 MG in NS 100 ML IV SCH (14:19)
[2022-12-13] MEDS: NS 1,000 ML IV SCH (15:43)
[2022-12-13 15:49] LABS: HEMATOCRIT 28.7 % (36.0-47.0); HEMOGLOBIN 8.9 g/dl (12.0-15.5); MEAN CORPUSCULAR HEMOGLOBIN 28.1 pg (27.0-33.0); MEAN CORPUSCULAR VOLUME 90.5 fl (80.0-96.0); PLATELET COUNT, AUTOMATED 540 10^3/uL (150-450); RED BLOOD COUNT 3.17 10^6/uL (4.00-5.40); WHITE BLOOD COUNT 20.6 10^3/uL (4.0-10.0)
[2022-12-13] MEDS: INSULIN LISPRO (NovoLOG) PER UNIT SC SCH (17:28)
[2022-12-13] MEDS ORDERED: AMINO AC/ELECTROLYTE/DEX/CALC 2,000 ML IV SCH (18:00)
[2022-12-13] MEDS ORDERED: FAT EMULSION IV 250 ML IV ONE (18:00)
[2022-12-14] VITALS: BP 150/76
[2022-12-14] MEDS: INSULIN LISPRO (NovoLOG) PER UNIT SC SCH ×4 (00:04→17:12)
[2022-12-14] MEDS: MORPHINE 2 MG/ML 1ML VIAL IV PRN ×3 (02:00→22:13)
[2022-12-14 04:00] VITALS: BP 153/74
[2022-12-14 05:34] LABS: BASO % 0.2 % (0.0-1.0); EOS # 0.1 10^3/uL (0.0-0.5); EOS % 0.6 % (0.0-3.0); HEMATOCRIT 29.4 % (36.0-47.0); HEMOGLOBIN 9.2 g/dl (12.0-15.5); LYMPH # 0.8 10^3/uL (1.5-5.0); LYMPH % 3.6 % (24.0-44.0); MEAN CORPUSCULAR HEMOGLOBIN 28.3 pg (27.0-33.0); MEAN CORPUSCULAR HGB CONC 31.3 g/dl (32.0-36.5); MEAN CORPUSCULAR VOLUME 90.5 fl (80.0-96.0); MONO # 1.3 10^3/uL (0.0-0.8); MONO % 6.5 % (2.0-8.0); NEUTROPHILS # 18.4 10^3/uL (1.5-8.5); NEUTROPHILS % 88.4 % (36.0-66.0); PLATELET COUNT, AUTOMATED 553 10^3/uL (150-450); RED BLOOD COUNT 3.25 10^6/uL (4.00-5.40); WHITE BLOOD COUNT 20.8 10^3/uL (4.0-10.0)
[2022-12-14] MEDS: MEROPENEM INJ 1 GM in IV 1 EA IV SCH ×3 (05:44→22:12)
[2022-12-14 06:04] LABS: ALBUMIN 1.8 G/DL (3.2-5.2); ALKALINE PHOSPHATASE 106 U/L (46-116); ALT/SGPT 15 U/L (7.0-40); AST/SGOT 19 U/L (<34); BILIRUBIN,TOTAL 0.2 MG/DL (0.3-1.2); BLOOD UREA NITROGEN 16 MG/DL (9-23); CALCIUM LEVEL 8.5 MG/DL (8.3-10.6); CARBON DIOXIDE LEVEL 32 MMOL/L (20-31); CHLORIDE LEVEL 104 MMOL/L (98-107); CREATININE FOR GFR 0.54 MG/DL (0.55-1.30); GLOMERULAR FILTRATION RATE > 60.0 (>39); GLUCOSE, FASTING 175 MG/DL (74-106); MAGNESIUM LEVEL 1.8 MG/DL (1.8-2.4); POTASSIUM SERUM 3.4 MMOL/L (3.5-5.1); SODIUM LEVEL 139 MMOL/L (136-145); TOTAL PROTEIN 5.4 G/DL (5.7-8.2)
[2022-12-14] MEDS: TIOTROPIUM INHALER/CAPSULE (SPIRIVA) INH SCH (07:21)
[2022-12-14] MEDS: ALBUTEROL SULFATE 2.5MG/0.5ML INH NEB SOLN NEB SCH ×4 (07:21→19:53)
[2022-12-14] MEDS ORDERED: KCL 20MEQ IN 100ML SWI (KRUN) 20 MEQ in IV 1 EA IV ONE ×2 (07:30)
[2022-12-14 08:00] VITALS: BP 153/71
[2022-12-14] MEDS ORDERED: KCL 10MEQ/100ML SWI (KRUN) 10 MEQ in IV 1 EA IV ONE (08:00)
[2022-12-14] MEDS: PANTOPRAZOLE 40MG VIAL IV SCH ×2 (08:42→20:47)
[2022-12-14] MEDS: ANALGESIC BALM CRM 3OZ TOP SCH ×2 (08:43→20:47)
[2022-12-14] MEDS: LIDOCAINE 5% (LIDODERM) PATCH TD SCH (08:43)
[2022-12-14] MEDS: SODIUM CHLORIDE 0.9% INJ 10 ML SYR IV SCH (09:00)
[2022-12-14] MEDS: GABAPENTIN 300 MG CAP PO SCH ×3 (09:00→19:56)
[2022-12-14] MEDS: SUCRALFATE SUSP 1GM/10ML UD PO SCH ×3 (09:00→19:56)
[2022-12-14] MEDS: VANCOMYCIN HCL 1,000 MG, VIAL MATE ADAPTER 1 EACH in NS 250 ML IV SCH (09:56)
[2022-12-14] MEDS: AMIODARONE HCL 150 MG in IV 1 EA IV SCH (09:56)
[2022-12-14 12:00] VITALS: BP 149/78
[2022-12-14] MEDS: diltiaZEM 125 MG in NS 100 ML IV SCH (14:05)
[2022-12-14 16:01] VITALS: BP 143/67
[2022-12-14] MEDS ORDERED: MULTIVITAMIN -ADULT INJECTION 10 ML, ZINC/COPPER/MANGANESE/SELENIUM 1 ML in AMINO AC/EL... IV SCH (18:00)
[2022-12-14] MEDS ORDERED: FAT EMULSION IV 250 ML IV ONE (18:00)
[2022-12-14] MEDS ORDERED: AMINO AC/ELECTROLYTE/DEX/CALC 2,000 ML IV SCH (18:00)
[2022-12-14] MEDS: KETOROLAC 30 MG/ML 1ML VIAL IV SCH (18:20)
[2022-12-14 20:00] VITALS: BP 152/81
[2022-12-15] VITALS (37 sets, daily range): BP systolic 105–229; BP diastolic 67–124
[2022-12-15] MEDS: KETOROLAC 30 MG/ML 1ML VIAL IV SCH ×3 (04:00→17:30)
[2022-12-15 04:58] LABS: HEMATOCRIT 30.3 % (36.0-47.0); HEMOGLOBIN 9.7 g/dl (12.0-15.5); MEAN CORPUSCULAR HEMOGLOBIN 28.5 pg (27.0-33.0); MEAN CORPUSCULAR VOLUME 89.1 fl (80.0-96.0); PLATELET COUNT, AUTOMATED 513 10^3/uL (150-450)
[2022-12-15 05:18] LABS: LYMPHOCYTES 9 % (16-44); MONOCYTES 9 % (0-5); NEUTROPHILS 82 % (28-66)
[2022-12-15 05:19] LABS: PLATELET ESTIMATE INCREASED (NORMAL)
[2022-12-15 05:22] LABS: ALBUMIN 1.9 G/DL (3.2-5.2); ALKALINE PHOSPHATASE 97 U/L (46-116); ALT/SGPT 15 U/L (7.0-40); AST/SGOT 17 U/L (<34); BILIRUBIN,TOTAL 0.2 MG/DL (0.3-1.2); BLOOD UREA NITROGEN 18 MG/DL (9-23); CALCIUM LEVEL 8.4 MG/DL (8.3-10.6); CARBON DIOXIDE LEVEL 33 MMOL/L (20-31); CHLORIDE LEVEL 102 MMOL/L (98-107); CREATININE FOR GFR 0.45 MG/DL (0.55-1.30); GLOMERULAR FILTRATION RATE > 60.0 (>39); GLUCOSE, FASTING 131 MG/DL (74-106); POTASSIUM SERUM 3.7 MMOL/L (3.5-5.1); SODIUM LEVEL 137 MMOL/L (136-145); TOTAL PROTEIN 5.6 G/DL (5.7-8.2)
[2022-12-15] MEDS: INSULIN LISPRO (NovoLOG) PER UNIT SC SCH ×4 (05:55→17:41)
[2022-12-15] MEDS: MEROPENEM INJ 1 GM in IV 1 EA IV SCH ×3 (05:58→22:03)
[2022-12-15] MEDS: ALBUTEROL SULFATE 2.5MG/0.5ML INH NEB SOLN NEB SCH ×4 (06:02→20:51)
[2022-12-15] MEDS: TIOTROPIUM INHALER/CAPSULE (SPIRIVA) INH SCH (06:15)
[2022-12-15] MEDS: MORPHINE 2 MG/ML 1ML VIAL IV PRN ×4 (08:24→22:03)
[2022-12-15] MEDS: ANALGESIC BALM CRM 3OZ TOP SCH ×2 (08:25→20:45)
[2022-12-15] MEDS: LIDOCAINE 5% (LIDODERM) PATCH TD SCH (08:25)
[2022-12-15] MEDS: PANTOPRAZOLE 40MG VIAL IV SCH ×2 (08:25→20:45)
[2022-12-15] MEDS: SUCRALFATE SUSP 1GM/10ML UD PO SCH ×2 (08:53→19:27)
[2022-12-15] MEDS: GABAPENTIN 300 MG CAP PO SCH ×3 (08:53→19:27)
[2022-12-15] MEDS: SODIUM CHLORIDE 0.9% INJ 10 ML SYR IV SCH (08:53)
[2022-12-15] MEDS: AMIODARONE HCL 150 MG in IV 1 EA IV SCH (09:55)
[2022-12-15] MEDS ORDERED: BARIUM SULFATE 700 MG TABLET (E-Z-DISK) As Ordered ONE (12:13)
[2022-12-15] MEDS ORDERED: VARIBAR NECTAR 40% w/v 240ML SUSP BTL As Ordered ONE (12:13)
[2022-12-15] MEDS ORDERED: VARIBAR PUDDING 40% w/v 230ML TUBE As Ordered ONE (12:13)
[2022-12-15] MEDS ORDERED: E-Z-PAQUE 96% w/w SUSP 176GM BTL As Ordered ONE (12:13)
[2022-12-15] MEDS ORDERED: hydrALAZINE 20MG/ML 1ML VIAL IV PRN (13:15)
[2022-12-15] MEDS ORDERED: MIDAZOLAM INJ 2MG/2ML VIAL As Ordered ONE ×2 (13:29→13:30)
[2022-12-15] MEDS ORDERED: fentaNYL 100 MCG/2 ML INJECTION As Ordered ONE (13:30)
[2022-12-15] MEDS ORDERED: LIDOCAINE 1% MDV 20ML VIAL As Ordered ONE (13:30)
[2022-12-15] MEDS: diltiaZEM 125 MG in NS 100 ML IV SCH (14:35)
[2022-12-15] MEDS ORDERED: MIDAZOLAM INJ 2MG/2ML VIAL IV STA (14:46)
[2022-12-15] MEDS ORDERED: fentaNYL 100 MCG/2 ML INJECTION IV ONE (14:50)
[2022-12-15] MEDS ORDERED: LIDOCAINE 1% MDV 20ML VIAL SC ONE (14:50)
[2022-12-15] MEDS ORDERED: BISACODYL 10MG SUPP PR PRN (14:50)
[2022-12-15] MEDS ORDERED: FAT EMULSION IV 250 ML IV ONE (18:00)
[2022-12-15] MEDS ORDERED: AMINO AC/ELECTROLYTE/DEX/CALC 2,000 ML IV SCH (18:00)
[2022-12-15] MEDS: DOCUSATE SODIUM 100MG CAPSULE PO SCH (19:27)
[2022-12-16] VITALS (16 sets, daily range): BP systolic 102–130; BP diastolic 64–80
[2022-12-16] MEDS: KETOROLAC 30 MG/ML 1ML VIAL IV SCH ×3 (02:04→17:34)
[2022-12-16] MEDS: MORPHINE 2 MG/ML 1ML VIAL IV PRN (04:00)
[2022-12-16] MEDS: INSULIN LISPRO (NovoLOG) PER UNIT SC SCH ×4 (06:00→18:00)
[2022-12-16] MEDS: MEROPENEM INJ 1 GM in IV 1 EA IV SCH ×3 (06:42→22:51)
[2022-12-16 06:49] LABS: BASO % 0.3 % (0.0-1.0); EOS # 0.3 10^3/uL (0.0-0.5); EOS % 2.1 % (0.0-3.0); HEMATOCRIT 32.5 % (36.0-47.0); HEMOGLOBIN 10.3 g/dl (12.0-15.5); LYMPH # 1.1 10^3/uL (1.5-5.0); LYMPH % 7.9 % (24.0-44.0); MEAN CORPUSCULAR HEMOGLOBIN 28.5 pg (27.0-33.0); MEAN CORPUSCULAR HGB CONC 31.7 g/dl (32.0-36.5); MEAN CORPUSCULAR VOLUME 89.8 fl (80.0-96.0); MONO # 1.2 10^3/uL (0.0-0.8); MONO % 8.9 % (2.0-8.0); NEUTROPHILS # 11.1 10^3/uL (1.5-8.5); NEUTROPHILS % 79.2 % (36.0-66.0); PLATELET COUNT, AUTOMATED 514 10^3/uL (150-450); RED BLOOD COUNT 3.62 10^6/uL (4.00-5.40)
[2022-12-16 07:32] LABS: ALBUMIN 1.9 G/DL (3.2-5.2); ALKALINE PHOSPHATASE 101 U/L (46-116); ALT/SGPT 14 U/L (7.0-40); AST/SGOT 20 U/L (<34); BILIRUBIN,TOTAL 0.2 MG/DL (0.3-1.2); BLOOD UREA NITROGEN 30 MG/DL (9-23); CALCIUM LEVEL 8.2 MG/DL (8.3-10.6); CARBON DIOXIDE LEVEL 30 MMOL/L (20-31); CHLORIDE LEVEL 100 MMOL/L (98-107); CREATININE FOR GFR 0.49 MG/DL (0.55-1.30); GLOMERULAR FILTRATION RATE > 60.0 (>39); GLUCOSE, FASTING 126 MG/DL (74-106); MAGNESIUM LEVEL 1.9 MG/DL (1.8-2.4); SODIUM LEVEL 137 MMOL/L (136-145); TOTAL PROTEIN 5.7 G/DL (5.7-8.2)
[2022-12-16] MEDS: ALBUTEROL SULFATE 2.5MG/0.5ML INH NEB SOLN NEB SCH ×4 (08:05→19:17)
[2022-12-16] MEDS: TIOTROPIUM INHALER/CAPSULE (SPIRIVA) INH SCH (08:06)
[2022-12-16] MEDS: MOM 30ML SUSPENSION UDC PO SCH (08:08)
[2022-12-16] MEDS: SUCRALFATE SUSP 1GM/10ML UD PO SCH ×2 (08:08→19:59)
[2022-12-16] MEDS: DOCUSATE SODIUM 100MG CAPSULE PO SCH ×2 (08:08→19:59)
[2022-12-16] MEDS: GABAPENTIN 300 MG CAP PO SCH ×3 (08:08→19:59)
[2022-12-16] MEDS: ANALGESIC BALM CRM 3OZ TOP SCH ×2 (08:33→20:29)
[2022-12-16] MEDS: PANTOPRAZOLE 40MG VIAL IV SCH ×2 (08:33→20:29)
[2022-12-16] MEDS: LIDOCAINE 5% (LIDODERM) PATCH TD SCH (08:34)
[2022-12-16] MEDS: MORPHINE 4 MG/ML 1ML VIAL IV PRN ×4 (08:46→22:51)
[2022-12-16] MEDS: AMIODARONE HCL IV SCH (10:16)
[2022-12-16] MEDS: diltiaZEM 125 MG in NS 100 ML IV SCH (15:17)
[2022-12-16] MEDS: MULTIVITAMIN -ADULT INJECTION 10 ML, ZINC/COPPER/MANGANESE/SELENIUM 1 ML in AMINO AC/EL... IV SCH (17:35)
[2022-12-16] MEDS ORDERED: FAT EMULSION IV 250 ML IV ONE (18:00)
[2022-12-17] VITALS: BP 107/66
[2022-12-17] MEDS: KETOROLAC 30 MG/ML 1ML VIAL IV SCH ×3 (02:03→17:46)
[2022-12-17 04:00] VITALS: BP 117/79
[2022-12-17 05:00] LABS: BASO % 0.2 % (0.0-1.0); EOS # 0.5 10^3/uL (0.0-0.5); EOS % 2.9 % (0.0-3.0); HEMATOCRIT 32.8 % (36.0-47.0); HEMOGLOBIN 10.1 g/dl (12.0-15.5); LYMPH % 6.2 % (24.0-44.0); MEAN CORPUSCULAR HEMOGLOBIN 28.1 pg (27.0-33.0); MEAN CORPUSCULAR HGB CONC 30.8 g/dl (32.0-36.5); MEAN CORPUSCULAR VOLUME 91.1 fl (80.0-96.0); MONO # 1.2 10^3/uL (0.0-0.8); MONO % 7.2 % (2.0-8.0); NEUTROPHILS # 13.8 10^3/uL (1.5-8.5); NEUTROPHILS % 82.4 % (36.0-66.0); PLATELET COUNT, AUTOMATED 496 10^3/uL (150-450); WHITE BLOOD COUNT 16.7 10^3/uL (4.0-10.0)
[2022-12-17 05:23] LABS: ALBUMIN 1.9 G/DL (3.2-5.2); ALKALINE PHOSPHATASE 100 U/L (46-116); ALT/SGPT 21 U/L (7.0-40); AST/SGOT 26 U/L (<34); BILIRUBIN,TOTAL 0.2 MG/DL (0.3-1.2); BLOOD UREA NITROGEN 31 MG/DL (9-23); CALCIUM LEVEL 8.7 MG/DL (8.3-10.6); CARBON DIOXIDE LEVEL 32 MMOL/L (20-31); CHLORIDE LEVEL 99 MMOL/L (98-107); CREATININE FOR GFR 0.46 MG/DL (0.55-1.30); GLOMERULAR FILTRATION RATE > 60.0 (>39); GLUCOSE, FASTING 121 MG/DL (74-106); MAGNESIUM LEVEL 1.8 MG/DL (1.8-2.4); POTASSIUM SERUM 4.4 MMOL/L (3.5-5.1); SODIUM LEVEL 136 MMOL/L (136-145); TOTAL PROTEIN 5.6 G/DL (5.7-8.2)
[2022-12-17] MEDS: INSULIN LISPRO (NovoLOG) PER UNIT SC SCH ×3 (05:31→12:00)
[2022-12-17] MEDS: MEROPENEM INJ 1 GM in IV 1 EA IV SCH ×3 (05:40→21:43)
[2022-12-17] MEDS: MORPHINE 4 MG/ML 1ML VIAL IV PRN ×4 (05:54→17:45)
[2022-12-17] MEDS: TIOTROPIUM INHALER/CAPSULE (SPIRIVA) INH SCH (07:47)
[2022-12-17] MEDS: ALBUTEROL SULFATE 2.5MG/0.5ML INH NEB SOLN NEB SCH ×4 (07:47→19:27)
[2022-12-17 08:00] VITALS: BP 128/86
[2022-12-17] MEDS: GABAPENTIN 300 MG CAP PO SCH ×4 (09:00→20:27)
[2022-12-17] MEDS: MOM 30ML SUSPENSION UDC PO SCH (09:30)
[2022-12-17] MEDS: DOCUSATE SODIUM 100MG CAPSULE PO SCH ×2 (09:30→20:27)
[2022-12-17] MEDS: SUCRALFATE SUSP 1GM/10ML UD PO SCH ×2 (09:30→20:28)
[2022-12-17] MEDS: PANTOPRAZOLE 40MG VIAL IV SCH ×2 (09:31→20:28)
[2022-12-17] MEDS: LIDOCAINE 5% (LIDODERM) PATCH TD SCH (09:31)
[2022-12-17] MEDS: ANALGESIC BALM CRM 3OZ TOP SCH ×2 (09:32→20:29)
[2022-12-17] MEDS: AMIODARONE HCL IV SCH (09:32)
[2022-12-17] MEDS: MULTIVITAMIN -ADULT INJECTION 10 ML, ZINC/COPPER/MANGANESE/SELENIUM 1 ML in AMINO AC/EL... IV SCH (09:46)
[2022-12-17] MEDS: SODIUM CHLORIDE 0.9% INJ 10 ML SYR IV SCH ×2 (11:34→17:47)
[2022-12-17 12:00] VITALS: BP 117/72
[2022-12-17] MEDS ORDERED: E-Z-PAQUE 96% w/w SUSP 176GM BTL As Ordered ONE (14:01)
[2022-12-17] MEDS ORDERED: BARIUM SULFATE 700 MG TABLET (E-Z-DISK) As Ordered ONE (14:01)
[2022-12-17] MEDS ORDERED: VARIBAR NECTAR 40% w/v 240ML SUSP BTL As Ordered ONE (14:01)
[2022-12-17] MEDS ORDERED: VARIBAR PUDDING 40% w/v 230ML TUBE As Ordered ONE (14:01)
[2022-12-17] MEDS: diltiaZEM 125 MG in NS 100 ML IV SCH (15:00)
[2022-12-17 16:00] VITALS: BP 114/70
[2022-12-17] MEDS: ADVAIR HFA 230/21MCG INHALER INH SCH (19:27)
[2022-12-17 20:17] VITALS: BP 113/68
[2022-12-17] MEDS: PERCOCET 5MG/325MG TAB PO PRN (20:28)
[2022-12-17] MEDS ORDERED: APIXABAN 5 MG TAB (ELIQUIS) PO SCH (21:00)
[2022-12-18 00:05] VITALS: BP 104/67
[2022-12-18] MEDS: KETOROLAC 30 MG/ML 1ML VIAL IV SCH ×3 (02:25→17:02)
[2022-12-18 04:08] VITALS: BP 104/67
[2022-12-18 04:59] LABS: BASO % 0.2 % (0.0-1.0); EOS # 0.2 10^3/uL (0.0-0.5); EOS % 2.1 % (0.0-3.0); HEMATOCRIT 30.4 % (36.0-47.0); HEMOGLOBIN 9.2 g/dl (12.0-15.5); LYMPH # 0.7 10^3/uL (1.5-5.0); MEAN CORPUSCULAR HEMOGLOBIN 27.5 pg (27.0-33.0); MEAN CORPUSCULAR HGB CONC 30.3 g/dl (32.0-36.5); MEAN CORPUSCULAR VOLUME 90.7 fl (80.0-96.0); MONO # 1.1 10^3/uL (0.0-0.8); MONO % 9.5 % (2.0-8.0); NEUTROPHILS % 81.4 % (36.0-66.0); PLATELET COUNT, AUTOMATED 468 10^3/uL (150-450); RED BLOOD COUNT 3.35 10^6/uL (4.00-5.40); WHITE BLOOD COUNT 11.1 10^3/uL (4.0-10.0)
[2022-12-18] MEDS: MEROPENEM INJ 1 GM in IV 1 EA IV SCH (05:10)
[2022-12-18] MEDS: SODIUM CHLORIDE 0.9% INJ 10 ML SYR IV SCH ×2 (05:10→17:03)
[2022-12-18 05:15] LABS: ALKALINE PHOSPHATASE 112 U/L (46-116); ALT/SGPT 87 U/L (7.0-40); AST/SGOT 69 U/L (<34); BILIRUBIN,TOTAL 0.3 MG/DL (0.3-1.2); BLOOD UREA NITROGEN 30 MG/DL (9-23); CALCIUM LEVEL 8.3 MG/DL (8.3-10.6); CARBON DIOXIDE LEVEL 35 MMOL/L (20-31); CHLORIDE LEVEL 100 MMOL/L (98-107); CREATININE FOR GFR 0.56 MG/DL (0.55-1.30); GLOMERULAR FILTRATION RATE > 60.0 (>39); GLUCOSE, FASTING 91 MG/DL (74-106); POTASSIUM SERUM 5.1 MMOL/L (3.5-5.1); SODIUM LEVEL 138 MMOL/L (136-145); TOTAL PROTEIN 5.4 G/DL (5.7-8.2)
[2022-12-18 08:00] VITALS: BP 111/70
[2022-12-18] MEDS: ALBUTEROL SULFATE 2.5MG/0.5ML INH NEB SOLN NEB SCH ×4 (08:00→21:00)
[2022-12-18] MEDS: MOM 30ML SUSPENSION UDC PO SCH (08:04)
[2022-12-18] MEDS: SUCRALFATE SUSP 1GM/10ML UD PO SCH ×2 (08:04→21:27)
[2022-12-18] MEDS: AMIODARONE 100MG TABLET (PACERONE) PO SCH (08:06)
[2022-12-18] MEDS: DOCUSATE SODIUM 100MG CAPSULE PO SCH ×2 (08:07→21:25)
[2022-12-18] MEDS: GABAPENTIN 300 MG CAP PO SCH ×3 (08:08→21:26)
[2022-12-18] MEDS: PERCOCET 5MG/325MG TAB PO PRN ×3 (08:08→21:26)
[2022-12-18] MEDS: PANTOPRAZOLE 40MG VIAL IV SCH ×2 (08:08→21:26)
[2022-12-18] MEDS: predniSONE 5 MG TAB PO SCH (08:09)
[2022-12-18] MEDS: LIDOCAINE 5% (LIDODERM) PATCH TD SCH (08:09)
[2022-12-18] MEDS: ANALGESIC BALM CRM 3OZ TOP SCH ×2 (08:09→21:27)
[2022-12-18] MEDS: TIOTROPIUM INHALER/CAPSULE (SPIRIVA) INH SCH (09:03)
[2022-12-18] MEDS: ADVAIR HFA 230/21MCG INHALER INH SCH ×2 (09:03→20:12)
[2022-12-18 12:00] VITALS: BP 101/59
[2022-12-18 16:00] VITALS: BP 138/80
[2022-12-18 20:00] VITALS: BP 126/74
[2022-12-18] MEDS: APIXABAN 5 MG TAB (ELIQUIS) PO SCH (21:26)
[2022-12-19] VITALS (7 sets, daily range): BP systolic 103–127; BP diastolic 57–66
[2022-12-19] MEDS: KETOROLAC 30 MG/ML 1ML VIAL IV SCH ×2 (03:01→09:16)
[2022-12-19] MEDS: SODIUM CHLORIDE 0.9% INJ 10 ML SYR IV SCH ×3 (06:01→18:50)
[2022-12-19 06:28] LABS: BASO % 0.3 % (0.0-1.0); EOS # 1.1 10^3/uL (0.0-0.5); EOS % 7.5 % (0.0-3.0); HEMATOCRIT 30.8 % (36.0-47.0); HEMOGLOBIN 9.3 g/dl (12.0-15.5); LYMPH # 0.9 10^3/uL (1.5-5.0); LYMPH % 6.4 % (24.0-44.0); MEAN CORPUSCULAR HEMOGLOBIN 27.9 pg (27.0-33.0); MEAN CORPUSCULAR HGB CONC 30.2 g/dl (32.0-36.5); MEAN CORPUSCULAR VOLUME 92.5 fl (80.0-96.0); MONO # 1.4 10^3/uL (0.0-0.8); MONO % 9.8 % (2.0-8.0); NEUTROPHILS # 10.7 10^3/uL (1.5-8.5); NEUTROPHILS % 75.4 % (36.0-66.0); PLATELET COUNT, AUTOMATED 493 10^3/uL (150-450); RED BLOOD COUNT 3.33 10^6/uL (4.00-5.40); WHITE BLOOD COUNT 14.2 10^3/uL (4.0-10.0)
[2022-12-19 06:57] LABS: ALKALINE PHOSPHATASE 117 U/L (46-116); ALT/SGPT 52 U/L (7.0-40); AST/SGOT 33 U/L (<34); BILIRUBIN,TOTAL 0.3 MG/DL (0.3-1.2); BLOOD UREA NITROGEN 35 MG/DL (9-23); CALCIUM LEVEL 8.8 MG/DL (8.3-10.6); CARBON DIOXIDE LEVEL 34 MMOL/L (20-31); CHLORIDE LEVEL 103 MMOL/L (98-107); CREATININE FOR GFR 0.61 MG/DL (0.55-1.30); GLOMERULAR FILTRATION RATE > 60.0 (>39); GLUCOSE, FASTING 81 MG/DL (74-106); MAGNESIUM LEVEL 2.1 MG/DL (1.8-2.4); POTASSIUM SERUM 5.2 MMOL/L (3.5-5.1); SODIUM LEVEL 140 MMOL/L (136-145); TOTAL PROTEIN 5.2 G/DL (5.7-8.2)
[2022-12-19] MEDS: ALBUTEROL SULFATE 2.5MG/0.5ML INH NEB SOLN NEB SCH ×4 (08:00→18:59)
[2022-12-19] MEDS: TIOTROPIUM INHALER/CAPSULE (SPIRIVA) INH SCH (08:14)
[2022-12-19] MEDS: ADVAIR HFA 230/21MCG INHALER INH SCH ×2 (08:14→19:10)
[2022-12-19] MEDS: SUCRALFATE SUSP 1GM/10ML UD PO SCH ×2 (09:11→20:09)
[2022-12-19] MEDS: AMIODARONE 100MG TABLET (PACERONE) PO SCH (09:11)
[2022-12-19] MEDS: predniSONE 5 MG TAB PO SCH (09:11)
[2022-12-19] MEDS: PANTOPRAZOLE 40MG VIAL IV SCH ×2 (09:11→20:10)
[2022-12-19] MEDS: DOCUSATE SODIUM 100MG CAPSULE PO SCH ×2 (09:11→20:09)
[2022-12-19] MEDS: APIXABAN 5 MG TAB (ELIQUIS) PO SCH ×2 (09:11→20:09)
[2022-12-19] MEDS: GABAPENTIN 300 MG CAP PO SCH ×3 (09:11→20:09)
[2022-12-19] MEDS: MOM 30ML SUSPENSION UDC PO SCH (09:12)
[2022-12-19] MEDS: LIDOCAINE 5% (LIDODERM) PATCH TD SCH (09:13)
[2022-12-19] MEDS: ANALGESIC BALM CRM 3OZ TOP SCH ×2 (09:13→20:10)
[2022-12-20] VITALS (28 sets, daily range): BP systolic 100–127; BP diastolic 59–67; O2SAT 91–100
[2022-12-20] MEDS: PERCOCET 5MG/325MG TAB PO PRN ×4 (00:43→21:09)
[2022-12-20 06:35] LABS: BASO % 0.3 % (0.0-1.0); EOS # 1.1 10^3/uL (0.0-0.5); EOS % 11.8 % (0.0-3.0); HEMATOCRIT 31.5 % (36.0-47.0); HEMOGLOBIN 9.5 g/dl (12.0-15.5); LYMPH # 0.8 10^3/uL (1.5-5.0); LYMPH % 8.7 % (24.0-44.0); MEAN CORPUSCULAR HEMOGLOBIN 27.5 pg (27.0-33.0); MEAN CORPUSCULAR HGB CONC 30.2 g/dl (32.0-36.5); MONO # 1.2 10^3/uL (0.0-0.8); NEUTROPHILS % 65.7 % (36.0-66.0); PLATELET COUNT, AUTOMATED 526 10^3/uL (150-450); RED BLOOD COUNT 3.46 10^6/uL (4.00-5.40); WHITE BLOOD COUNT 9.2 10^3/uL (4.0-10.0)
[2022-12-20 07:06] LABS: ALKALINE PHOSPHATASE 122 U/L (46-116); ALT/SGPT 44 U/L (7.0-40); AST/SGOT 32 U/L (<34); BILIRUBIN,TOTAL 0.3 MG/DL (0.3-1.2); BLOOD UREA NITROGEN 28 MG/DL (9-23); CALCIUM LEVEL 8.3 MG/DL (8.3-10.6); CARBON DIOXIDE LEVEL 36 MMOL/L (20-31); CHLORIDE LEVEL 103 MMOL/L (98-107); GLOMERULAR FILTRATION RATE > 60.0 (>39); GLUCOSE, FASTING 90 MG/DL (74-106); MAGNESIUM LEVEL 2.2 MG/DL (1.8-2.4); POTASSIUM SERUM 4.4 MMOL/L (3.5-5.1); SODIUM LEVEL 142 MMOL/L (136-145); TOTAL PROTEIN 5.2 G/DL (5.7-8.2)
[2022-12-20] MEDS: TIOTROPIUM INHALER/CAPSULE (SPIRIVA) INH SCH (07:47)
[2022-12-20] MEDS: ALBUTEROL SULFATE 2.5MG/0.5ML INH NEB SOLN NEB SCH ×4 (07:47→19:40)
[2022-12-20] MEDS: ADVAIR HFA 230/21MCG INHALER INH SCH ×2 (07:47→19:48)
[2022-12-20] MEDS: LIDOCAINE 5% (LIDODERM) PATCH TD SCH (08:44)
[2022-12-20] MEDS: MOM 30ML SUSPENSION UDC PO SCH (08:45)
[2022-12-20] MEDS: SUCRALFATE SUSP 1GM/10ML UD PO SCH ×2 (08:45→21:11)
[2022-12-20] MEDS: predniSONE 5 MG TAB PO SCH (08:45)
[2022-12-20] MEDS: ANALGESIC BALM CRM 3OZ TOP SCH ×2 (08:45→21:12)
[2022-12-20] MEDS: APIXABAN 5 MG TAB (ELIQUIS) PO SCH ×2 (08:46→21:09)
[2022-12-20] MEDS: AMIODARONE 100MG TABLET (PACERONE) PO SCH (08:46)
[2022-12-20] MEDS: GABAPENTIN 300 MG CAP PO SCH ×3 (08:46→21:09)
[2022-12-20] MEDS: DOCUSATE SODIUM 100MG CAPSULE PO SCH (08:46)
[2022-12-20] MEDS: PANTOPRAZOLE 40MG VIAL IV SCH ×2 (08:47→21:11)
[2022-12-20] MEDS: SODIUM CHLORIDE 0.9% INJ 10 ML SYR IV PRN (08:48)
[2022-12-20] MEDS: SENOKOT S TAB PO SCH ×2 (10:43→21:00)
[2022-12-20] MEDS: SODIUM CHLORIDE 0.9% INJ 10 ML SYR IV SCH (16:53)
[2022-12-21] VITALS (32 sets, daily range): BP systolic 110–149; BP diastolic 59–73; O2SAT 90–99
[2022-12-21] MEDS: SODIUM CHLORIDE 0.9% INJ 10 ML SYR IV SCH ×2 (05:25→18:34)
[2022-12-21 06:15] LABS: BASO % 0.5 % (0.0-1.0); EOS % 10.8 % (0.0-3.0); HEMATOCRIT 33.4 % (36.0-47.0); LYMPH # 0.7 10^3/uL (1.5-5.0); LYMPH % 8.2 % (24.0-44.0); MEAN CORPUSCULAR HEMOGLOBIN 27.3 pg (27.0-33.0); MEAN CORPUSCULAR HGB CONC 29.9 g/dl (32.0-36.5); MEAN CORPUSCULAR VOLUME 91.3 fl (80.0-96.0); MONO # 0.6 10^3/uL (0.0-0.8); MONO % 7.2 % (2.0-8.0); NEUTROPHILS # 6.4 10^3/uL (1.5-8.5); NEUTROPHILS % 72.7 % (36.0-66.0); PLATELET COUNT, AUTOMATED 469 10^3/uL (150-450); RED BLOOD COUNT 3.66 10^6/uL (4.00-5.40); WHITE BLOOD COUNT 8.9 10^3/uL (4.0-10.0)
[2022-12-21 06:59] LABS: ALKALINE PHOSPHATASE 122 U/L (46-116); ALT/SGPT 30 U/L (7.0-40); AST/SGOT 20 U/L (<34); BILIRUBIN,TOTAL 0.3 MG/DL (0.3-1.2); BLOOD UREA NITROGEN 23 MG/DL (9-23); CALCIUM LEVEL 8.6 MG/DL (8.3-10.6); CARBON DIOXIDE LEVEL 34 MMOL/L (20-31); CHLORIDE LEVEL 105 MMOL/L (98-107); CREATININE FOR GFR 0.57 MG/DL (0.55-1.30); GLOMERULAR FILTRATION RATE > 60.0 (>39); GLUCOSE, FASTING 81 MG/DL (74-106); MAGNESIUM LEVEL 2.1 MG/DL (1.8-2.4); POTASSIUM SERUM 4.3 MMOL/L (3.5-5.1); SODIUM LEVEL 142 MMOL/L (136-145); TOTAL PROTEIN 5.2 G/DL (5.7-8.2)
[2022-12-21] MEDS: LIDOCAINE 5% (LIDODERM) PATCH TD SCH (08:47)
[2022-12-21] MEDS: PANTOPRAZOLE 40MG VIAL IV SCH ×2 (08:47→20:13)
[2022-12-21] MEDS: MOM 30ML SUSPENSION UDC PO SCH ×2 (08:48→08:53)
[2022-12-21] MEDS: SUCRALFATE SUSP 1GM/10ML UD PO SCH ×2 (08:48→20:22)
[2022-12-21] MEDS: GABAPENTIN 300 MG CAP PO SCH ×3 (08:48→20:13)
[2022-12-21] MEDS: PERCOCET 5MG/325MG TAB PO PRN ×3 (08:49→20:22)
[2022-12-21] MEDS: SENOKOT S TAB PO SCH ×3 (08:50→20:15)
[2022-12-21] MEDS: AMIODARONE 100MG TABLET (PACERONE) PO SCH (08:50)
[2022-12-21] MEDS: APIXABAN 5 MG TAB (ELIQUIS) PO SCH ×2 (08:50→20:13)
[2022-12-21] MEDS: predniSONE 5 MG TAB PO SCH (08:50)
[2022-12-21] MEDS: ANALGESIC BALM CRM 3OZ TOP SCH ×2 (08:54→20:15)
[2022-12-21] MEDS: ALBUTEROL SULFATE 2.5MG/0.5ML INH NEB SOLN NEB SCH ×4 (09:03→19:17)
[2022-12-21] MEDS: TIOTROPIUM INHALER/CAPSULE (SPIRIVA) INH SCH (09:03)
[2022-12-21] MEDS: ADVAIR HFA 230/21MCG INHALER INH SCH ×2 (09:05→19:17)
[2022-12-21] MEDS: SODIUM CHLORIDE 0.9% INJ 10 ML SYR IV PRN (18:34)
[2022-12-22] VITALS (23 sets, daily range): BP systolic 105–118; BP diastolic 58–64; O2SAT 88–97
[2022-12-22] MEDS: SODIUM CHLORIDE 0.9% INJ 10 ML SYR IV SCH (05:38)
[2022-12-22 06:18] LABS: BASO # 0.1 10^3/uL (0.0-0.2); BASO % 0.4 % (0.0-1.0); EOS # 0.9 10^3/uL (0.0-0.5); EOS % 6.4 % (0.0-3.0); HEMATOCRIT 30.1 % (36.0-47.0); HEMOGLOBIN 9.2 g/dl (12.0-15.5); LYMPH # 0.7 10^3/uL (1.5-5.0); LYMPH % 5.2 % (24.0-44.0); MEAN CORPUSCULAR HEMOGLOBIN 27.5 pg (27.0-33.0); MEAN CORPUSCULAR HGB CONC 30.6 g/dl (32.0-36.5); MEAN CORPUSCULAR VOLUME 90.1 fl (80.0-96.0); MONO # 1.1 10^3/uL (0.0-0.8); MONO % 7.7 % (2.0-8.0); NEUTROPHILS # 10.9 10^3/uL (1.5-8.5); NEUTROPHILS % 79.7 % (36.0-66.0); PLATELET COUNT, AUTOMATED 506 10^3/uL (150-450); RED BLOOD COUNT 3.34 10^6/uL (4.00-5.40); WHITE BLOOD COUNT 13.6 10^3/uL (4.0-10.0)
[2022-12-22 06:39] LABS: ALBUMIN 2.2 G/DL (3.2-5.2); ALKALINE PHOSPHATASE 113 U/L (46-116); ALT/SGPT 24 U/L (7.0-40); AST/SGOT 17 U/L (<34); BILIRUBIN,TOTAL 0.2 MG/DL (0.3-1.2); BLOOD UREA NITROGEN 20 MG/DL (9-23); CALCIUM LEVEL 8.2 MG/DL (8.3-10.6); CARBON DIOXIDE LEVEL 32 MMOL/L (20-31); CHLORIDE LEVEL 105 MMOL/L (98-107); CREATININE FOR GFR 0.54 MG/DL (0.55-1.30); GLOMERULAR FILTRATION RATE > 60.0 (>39); GLUCOSE, FASTING 91 MG/DL (74-106); MAGNESIUM LEVEL 1.9 MG/DL (1.8-2.4); POTASSIUM SERUM 3.8 MMOL/L (3.5-5.1); SODIUM LEVEL 142 MMOL/L (136-145); TOTAL PROTEIN 5.2 G/DL (5.7-8.2)
[2022-12-22] MEDS: ADVAIR HFA 230/21MCG INHALER INH SCH (07:59)
[2022-12-22] MEDS: ALBUTEROL SULFATE 2.5MG/0.5ML INH NEB SOLN NEB SCH ×3 (08:00→15:12)
[2022-12-22] MEDS: GABAPENTIN 300 MG CAP PO SCH ×2 (08:07→15:52)
[2022-12-22] MEDS: PANTOPRAZOLE 40MG VIAL IV SCH (08:07)
[2022-12-22] MEDS: PERCOCET 5MG/325MG TAB PO PRN ×2 (08:07→15:52)
[2022-12-22] MEDS: MOM 30ML SUSPENSION UDC PO SCH (08:09)
[2022-12-22] MEDS: predniSONE 5 MG TAB PO SCH (08:09)
[2022-12-22] MEDS: APIXABAN 5 MG TAB (ELIQUIS) PO SCH (08:09)
[2022-12-22] MEDS: SUCRALFATE SUSP 1GM/10ML UD PO SCH (08:09)
[2022-12-22] MEDS: AMIODARONE 100MG TABLET (PACERONE) PO SCH (08:10)
[2022-12-22] MEDS: ANALGESIC BALM CRM 3OZ TOP SCH (08:10)
[2022-12-22] MEDS: SENOKOT S TAB PO SCH (08:10)
[2022-12-22] MEDS: LIDOCAINE 5% (LIDODERM) PATCH TD SCH (08:10)
[2022-12-22] MEDS: TIOTROPIUM INHALER/CAPSULE (SPIRIVA) INH SCH (11:15)
[2022-12-22] MEDS ORDERED: AMIO0.1T PO ×2 (15:20→16:08)
[2022-12-22] MEDS ORDERED: DILT30TA PO ×2 (15:20→16:08)
[2022-12-22] MEDS ORDERED: PANT40TA29 PO ×2 (15:20→16:08)
[2022-12-22] MEDS ORDERED: PERCOCET PO ×2 (15:20→16:08)
== END 2022-12-22 18:36 | disposition home health service (06) | DRG 911 ==
LOC: EDBD 12:33 → M ED 12:33 → M ED INP 21:09 → M ICU 22:00 → M PCU 11-26 18:23 → M ICU 12-12 06:30 → M PCU 12-19 22:36
PROVIDERS: ADMIT Internal Medicine; ATTEND Family Medicine
PROC: 30233N1 Transfusion of Nonautologous Red Blood Cells into Peripheral Vein, Percutaneous Approach (ICD-10-PCS; 2022-11-23)
PROC: 30233K1 Transfusion of Nonautologous Frozen Plasma into Peripheral Vein, Percutaneous Approach (ICD-10-PCS; 2022-11-23)
PROC: 07TP0ZZ Resection of Spleen, Open Approach (ICD-10-PCS; principal; 2022-11-23 16:42)
PROC: 0DN80ZZ Release Small Intestine, Open Approach (ICD-10-PCS; 2022-12-07)
PROC: 0DB80ZZ Excision of Small Intestine, Open Approach (ICD-10-PCS; 2022-12-07)
DX: S36.039A Unspecified laceration of spleen, initial encounter (principal); J69.0 Pneumonitis due to inhalation of food and vomit; J96.22 Acute and chronic respiratory failure with hypercapnia; T79.4XXA Traumatic shock, initial encounter; J14 Pneumonia due to Hemophilus influenzae; A41.9 Sepsis, unspecified organism; S27.0XXA Traumatic pneumothorax, initial encounter; B44.9 Aspergillosis, unspecified; K56.50 Intestinal adhesions [bands], unspecified as to partial versus complete obstruction; E87.3 Alkalosis; I31.39 Other pericardial effusion (noninflammatory); D69.6 Thrombocytopenia, unspecified; I48.20 Chronic atrial fibrillation, unspecified; J44.9 Chronic obstructive pulmonary disease, unspecified; K56.7 Ileus, unspecified; S32.010A Wedge compression fracture of first lumbar vertebra, initial encounter for closed fracture; Z99.81 Dependence on supplemental oxygen; E83.42 Hypomagnesemia; R13.10 Dysphagia, unspecified; S36.899A Unspecified injury of other intra-abdominal organs, initial encounter; E11.9 Type 2 diabetes mellitus without complications; D62 Acute posthemorrhagic anemia; E78.5 Hyperlipidemia, unspecified; E87.6 Hypokalemia; G47.00 Insomnia, unspecified; I10 Essential (primary) hypertension; J98.11 Atelectasis; K21.9 Gastro-esophageal reflux disease without esophagitis; M81.0 Age-related osteoporosis without current pathological fracture; R19.7 Diarrhea, unspecified; V89.2XXA Person injured in unspecified motor-vehicle accident, traffic, initial encounter; Z79.01 Long term (current) use of anticoagulants; Z92.21 Personal history of antineoplastic chemotherapy; Z92.3 Personal history of irradiation; Z85.118 Personal history of other malignant neoplasm of bronchus and lung; Z79.899 Other long term (current) drug therapy

== ENCOUNTER → 2022-11-23 | Outpatient (CLI) | payer MEDICARE ==
[~2022-11-23] MED LIST changes: +ALBU2.5V10 INH; +ALBU8.5H INH; -IPRA6SP; +IPRA6SP NARES; +METO25TA4 PO; +VITA500C24 PO
== END ==
LOC: M RAD 09:24
PROVIDERS: ATTEND Internal Medicine Medical Oncology
DX: C34.92 Malignant neoplasm of unspecified part of left bronchus or lung (principal); R07.89 Other chest pain

== ENCOUNTER → 2023-01-27 | Outpatient (CLI) | payer OTHER, MEDICARE ==
[~2023-01-27] MED LIST changes: +ALBU2.5V10 INH; +AMIO0.1T PO; +DILT30TA PO; +LORAPOW30; +LOSA50TA28; +METO25TA4 PO; +PANT40TA29 PO; +PERCOCET PO; +REME15TA2 PO; -ROSU20TA5 PO; +ROSU20TA61 PO; +VITA500C24 PO
== END ==
LOC: M LAB 12:25
PROVIDERS: ATTEND Internal Medicine Pulmonary Disease
DX: J90 Pleural effusion, not elsewhere classified (principal); Z95.828 Presence of other vascular implants and grafts; Z96.611 Presence of right artificial shoulder joint

== ENCOUNTER → 2023-04-27 | Outpatient (CLI) | payer MEDICARE ==
[~2023-04-27] MED LIST changes: -GABA-283 PO; +GABA-284 PO; -LIDO1CRE42 TOP; +LIDO30CR18 TOP; +MIRT-84 PO; -REME15TA2 PO
== END ==
LOC: M ONCR 10:28
PROVIDERS: ATTEND Radiology Radiation Oncology
DX: C34.12 Malignant neoplasm of upper lobe, left bronchus or lung (principal); Z79.01 Long term (current) use of anticoagulants; Z79.899 Other long term (current) drug therapy; Z87.891 Personal history of nicotine dependence; Z92.21 Personal history of antineoplastic chemotherapy; Z92.3 Personal history of irradiation; Z99.81 Dependence on supplemental oxygen

== ENCOUNTER → 2023-04-27 | Outpatient (CLI) | payer MEDICARE ==
[2023-04-27 13:58] LABS: BLOOD UREA NITROGEN 13 MG/DL (9-23); CREATININE FOR GFR 0.59 MG/DL (0.55-1.30); GLOMERULAR FILTRATION RATE > 60.0 (>39)
== END ==
LOC: M LAB 12:51
PROVIDERS: ATTEND Physician Assistant
DX: M47.895 Other spondylosis, thoracolumbar region (principal)

== ENCOUNTER → 2023-05-11 | Outpatient (CLI) | payer MEDICARE ==
[~2023-05-11] MED LIST changes: +PROHANCE 279.3MG/ML 5ML VIAL ONE
== END ==
LOC: M PLAIMG 09:21
PROVIDERS: ATTEND Physician Assistant
DX: M47.895 Other spondylosis, thoracolumbar region (principal); M51.36 Other intervertebral disc degeneration, lumbar region
CPT/HCPCS: 72158; A9576

== ENCOUNTER → 2023-06-11 | Outpatient (CLI) | payer MEDICARE ==
[~2023-06-11] MED LIST changes: +ISOVUE-370 76% 100ML VIAL As Ordered ONE; -PROHANCE 279.3MG/ML 5ML VIAL ONE
== END ==
LOC: M RAD 08:54
PROVIDERS: ATTEND Internal Medicine Medical Oncology
DX: C34.90 Malignant neoplasm of unspecified part of unspecified bronchus or lung (principal); N28.1 Cyst of kidney, acquired; R91.1 Solitary pulmonary nodule; K59.00 Constipation, unspecified; J43.2 Centrilobular emphysema
CPT/HCPCS: 71260; 74177; Q9967

== ENCOUNTER 2023-06-19 12:00 | Emergency (ER) | payer MEDICARE ==
[~2023-06-19] VITALS: Ht 157.5 cm; Wt 50.7 kg
[~2023-06-19 12:00] MED LIST changes: -ISOVUE-370 76% 100ML VIAL As Ordered ONE
[2023-06-19] MEDS ORDERED: ACETAMINOPHEN TAB 650MG DOSE (2X325MG) PO ONE (12:25)
[2023-06-19] MEDS ORDERED: PIPERACILLIN/TAZOBACTAM SOD 4.5 GM in D5W MINI-BAG PLUS 50 ML IV ONE (12:30)
[2023-06-19 13:15] LABS: BASO % 0.2 % (0.0-1.0); EOS % 0.1 % (0.0-3.0); HEMATOCRIT 28.9 % (36.0-47.0); HEMOGLOBIN 9.4 g/dl (12.0-15.5); LYMPH # 0.9 10^3/uL (1.5-5.0); LYMPH % 5.3 % (24.0-44.0); MEAN CORPUSCULAR HEMOGLOBIN 24.5 pg (27.0-33.0); MEAN CORPUSCULAR HGB CONC 32.5 g/dl (32.0-36.5); MEAN CORPUSCULAR VOLUME 75.5 fl (80.0-96.0); MONO # 1.4 10^3/uL (0.0-0.8); MONO % 8.1 % (2.0-8.0); NEUTROPHILS # 14.8 10^3/uL (1.5-8.5); NEUTROPHILS % 85.8 % (36.0-66.0); PLATELET COUNT, AUTOMATED 425 10^3/uL (150-450); RED BLOOD COUNT 3.83 10^6/uL (4.00-5.40); WHITE BLOOD COUNT 17.2 10^3/uL (4.0-10.0)
[2023-06-19 13:28] LABS: INR 2.32; PROTHROMBIN TIME 24.7 SECONDS (12.5-14.5)
[2023-06-19 13:29] LABS: PARTIAL THROMBOPLASTIN TIME 33.4 SECONDS (24.8-34.2)
[2023-06-19 13:39] LABS: ALBUMIN 2.8 G/DL (3.2-5.2); ALKALINE PHOSPHATASE 88 U/L (46-116); ALT/SGPT 13 U/L (7.0-40); AST/SGOT 29 U/L (<34); BILIRUBIN,DIRECT 0.2 MG/DL (<0.4); BILIRUBIN,TOTAL 0.6 MG/DL (0.3-1.2); BLOOD UREA NITROGEN 12 MG/DL (9-23); CALCIUM LEVEL 8.3 MG/DL (8.3-10.6); CARBON DIOXIDE LEVEL 26 MMOL/L (20-31); CHLORIDE LEVEL 98 MMOL/L (98-107); CREATININE FOR GFR 0.54 MG/DL (0.55-1.30); GLOMERULAR FILTRATION RATE > 60.0 (>39); GLUCOSE, FASTING 109 MG/DL (74-106); POTASSIUM SERUM 4.9 MMOL/L (3.5-5.1); SODIUM LEVEL 134 MMOL/L (136-145); TOTAL PROTEIN 6.8 G/DL (5.7-8.2)
[2023-06-19] MEDS ORDERED: ISOVUE-370 76% 100ML VIAL As Ordered ONE (14:02)
[2023-06-19 14:42] LABS: APPEARANCE, URINE HAZY (CLEAR); BACTERIA, URINE AUTO NEGATIVE (NEGATIVE); BILIRUBIN, URINE AUTO NEGATIVE (NEGATIVE); BLOOD, URINE BLOOD NEGATIVE (NEGATIVE); COLOR, URINE AMBER (YELLOW); GLUCOSE, URINE (UA) AUTO NEGATIVE (NEGATIVE); KETONE, URINE AUTO TRACE mg/dL (NEGATIVE); LEUKOCYTE ESTERASE, URINE AUTO NEGATIVE (NEGATIVE); MUCUS, URINE SMALL (NEGATIVE); NITRITE, URINE AUTO NEGATIVE (NEGATIVE); PROTEIN, URINE AUTO 2+ mg/dL (NEGATIVE); RBC, URINE AUTO 2 /HPF (0-3); SPECIFIC GRAVITY URINE AUTO 1.036 (1.002-1.035); SQUAMOUS EPITHELIAL CELL UR AU 4 /HPF (0-6); WBC, URINE AUTO 1 /HPF (0-3)
[2023-06-19 14:44] VITALS: TEMP 98.5
[2023-06-19 14:49] LABS: CK-MB VALUE MASS < 1.0 NG/ML (<3.6)
[2023-06-19 14:54] LABS: CPK CREATINE PHOSPHOKINASE 61 U/L (34-145); MB/CK RELATIVE INDEX 1.63 (< OR =4)
[2023-06-19 15:15] VITALS: BP 132/89; O2SAT 97
[2023-06-19] MEDS ORDERED: CEFP200T PO (15:33)
[2023-06-19] MEDS ORDERED: AZIT-12 PO (15:35)
== END 2023-06-19 15:45 | disposition left against medical advice (07) ==
LOC: M ED 12:00
DX: R00.0 Tachycardia, unspecified (principal); I44.4 Left anterior fascicular block; C34.90 Malignant neoplasm of unspecified part of unspecified bronchus or lung; I45.81 Long QT syndrome; I10 Essential (primary) hypertension; K21.9 Gastro-esophageal reflux disease without esophagitis; J44.9 Chronic obstructive pulmonary disease, unspecified; F17.200 Nicotine dependence, unspecified, uncomplicated; Z86.79 Personal history of other diseases of the circulatory system; Z79.891 Long term (current) use of opiate analgesic; Z79.811 Long term (current) use of aromatase inhibitors; Z79.01 Long term (current) use of anticoagulants; Z79.52 Long term (current) use of systemic steroids; Z79.899 Other long term (current) drug therapy; Z53.9 Procedure and treatment not carried out, unspecified reason
CPT/HCPCS: 71046; 71275; 80048; 80076; 81001; 82550; 82553; 83605; 84484; 85025; 85610; 85730; 87040; 87088; 87186; 87486; 87581; 87633; 87798; 93005; 93041; 94760; 96374; 99285; J2543; Q9967

== ENCOUNTER → 2023-07-12 | Outpatient (CLI) | payer MEDICARE ==
[~2023-07-12] MED LIST changes: +AZIT-12 PO; +CEFP200T PO
== END ==
LOC: M PLARAD 09:32
PROVIDERS: ATTEND Internal Medicine Medical Oncology
DX: C34.12 Malignant neoplasm of upper lobe, left bronchus or lung (principal); R91.8 Other nonspecific abnormal finding of lung field
CPT/HCPCS: 78815; A9552

== ENCOUNTER → 2023-07-21 | Outpatient (CLI) | payer MEDICARE | LOC: M PLAIMG 12:56 | PROVIDERS: ATTEND Internal Medicine Pulmonary Disease | DX: R91.8 Other nonspecific abnormal finding of lung field (principal); J47.9 Bronchiectasis, uncomplicated; J43.2 Centrilobular emphysema; I25.10 Atherosclerotic heart disease of native coronary artery without angina pectoris; I31.39 Other pericardial effusion (noninflammatory); I70.0 Atherosclerosis of aorta ==

== ENCOUNTER → 2023-08-30 | Outpatient (REF) | payer MEDICARE ==
[~2023-08-30] MED LIST changes: +ATIV1TAB10 PO; -LOSA50TA28; +TRAM50TA2 PO
== END ==
LOC: M LAB REF 12:28
PROVIDERS: ATTEND Internal Medicine Pulmonary Disease
DX: J47.9 Bronchiectasis, uncomplicated (principal)

== ENCOUNTER 2023-09-23 10:46 | Inpatient (IN) | payer MEDICARE ==
[~2023-09-23] VITALS: Ht 157.5 cm; Wt 49.5 kg
[2023-09-23 11:26] LABS: ABG BASE EXCESS 2.8 (-2.0-2.0); ABG HCO3 26.7 MMOL/L (22.0-26.0); ABG O2 SATURATION 94.3 % (95.0-99.0); ABG PARTIAL PRESSURE CO2 38.4 mmHg (35.0-45.0); ABG PARTIAL PRESSURE O2 71.3 mmHg (75.0-100.0); ABG STANDARD HCO3 26.9 MMOL/L. (22.0-26.0); ABG TOTAL CO2 27.9 MMOL/L (23.0-31.0)
[2023-09-23] MEDS: IPRATROPIUM 0.5MG/ALBUTEROL 2.5MG INH SOL UD 3ML (DUONEB) NEB ONE ×2 (11:55→14:23)
[2023-09-23 11:59] LABS: BASO % 0.1 % (0.0-1.0); HEMATOCRIT 32.8 % (36.0-47.0); HEMOGLOBIN 10.5 g/dl (12.0-15.5); LYMPH # 0.3 10^3/uL (1.5-5.0); LYMPH % 3.5 % (24.0-44.0); MEAN CORPUSCULAR HEMOGLOBIN 24.5 pg (27.0-33.0); MEAN CORPUSCULAR VOLUME 76.5 fl (80.0-96.0); MONO # 0.1 10^3/uL (0.0-0.8); MONO % 0.9 % (2.0-8.0); NEUTROPHILS # 8.5 10^3/uL (1.5-8.5); NEUTROPHILS % 95.2 % (36.0-66.0); PLATELET COUNT, AUTOMATED 452 10^3/uL (150-450); RED BLOOD COUNT 4.29 10^6/uL (4.00-5.40); WHITE BLOOD COUNT 8.9 10^3/uL (4.0-10.0)
[2023-09-23 12:13] LABS: INR 1.62; PROTHROMBIN TIME 18.7 SECONDS (12.5-14.5)
[2023-09-23 12:24] LABS: CK-MB VALUE MASS 1.4 NG/ML (<3.6)
[2023-09-23 12:26] LABS: CPK CREATINE PHOSPHOKINASE 40 U/L (34-145)
[2023-09-23 12:27] LABS: ALBUMIN 2.5 G/DL (3.2-5.2); ALKALINE PHOSPHATASE 85 U/L (46-116); ALT/SGPT 12 U/L (7.0-40); AST/SGOT 12 U/L (<34); BILIRUBIN,DIRECT 0.1 MG/DL (<0.4); BILIRUBIN,TOTAL 0.3 MG/DL (0.3-1.2); BLOOD UREA NITROGEN 20 MG/DL (9-23); CALCIUM LEVEL 8.3 MG/DL (8.3-10.6); CARBON DIOXIDE LEVEL 30 MMOL/L (20-31); CHLORIDE LEVEL 100 MMOL/L (98-107); CREATININE FOR GFR 0.59 MG/DL (0.55-1.30); GLOMERULAR FILTRATION RATE > 60.0 (>39); GLUCOSE, FASTING 177 MG/DL (74-106); POTASSIUM SERUM 4.2 MMOL/L (3.5-5.1); SODIUM LEVEL 137 MMOL/L (136-145); TOTAL PROTEIN 6.3 G/DL (5.7-8.2)
[2023-09-23 12:29] LABS: THYROID STIMULATING HORMONE 1.411 uIU/ML (0.55-4.78)
[2023-09-23 13:50] LABS: CK-MB VALUE MASS 1.1 NG/ML (<3.6); MB/CK RELATIVE INDEX 2.15 (< OR =4)
[2023-09-23] MEDS ORDERED: ISOVUE-370 76% 100ML VIAL As Ordered ONE (13:57)
[2023-09-23] MEDS: methylPREDNISolone 125MG 2ML VIAL IV ONE (15:36)
[2023-09-23 15:52] LABS: CK-MB VALUE MASS < 1.0 NG/ML (<3.6)
[2023-09-23 15:59] LABS: CPK CREATINE PHOSPHOKINASE 39 U/L (34-145); MB/CK RELATIVE INDEX 2.56 (< OR =4)
[2023-09-23] MEDS: cefTRIAXone SOD 1 GM in D5W MINI-BAG PLUS 50 ML IV ONE (16:25)
[2023-09-23] MEDS: AZITHROMYCIN 250MG TABLET PO ONE (16:26)
[2023-09-23 16:43] LABS: PROCALCITONIN 0.08 ng/ml
[2023-09-23] MEDS ORDERED: AMIO0.1T PO (17:06)
[2023-09-23] MEDS ORDERED: CALC-190 PO (17:08)
[2023-09-23] MEDS ORDERED: LIDO30CR18 TOP (17:15)
[2023-09-23] MEDS ORDERED: GABA-1171 PO (17:15)
[2023-09-23] MEDS ORDERED: PRED10PA PO (17:24)
[2023-09-23] MEDS ORDERED: BREO1INH3 INH (17:34)
[2023-09-23] MEDS ORDERED: CIPR500T39 PO (17:34)
[2023-09-23] MEDS ORDERED: IPRA2IN INH (17:34)
[2023-09-23] MEDS ORDERED: SPIR12.9 INH (17:37)
[2023-09-23] MEDS ORDERED: HOME MED LIST COMPLETE! XX SCH (17:50)
[2023-09-23] MEDS ORDERED: ALBUTEROL SULFATE 2.5MG/0.5ML INH NEB SOLN INH SCH (20:00)
[2023-09-23 20:15] VITALS: BP 167/85; TEMP 98.2; O2SAT 94
[2023-09-23] MEDS: IPRATROPIUM 0.5MG/ALBUTEROL 2.5MG INH SOL UD 3ML (DUONEB) INH SCH (20:36)
[2023-09-23] MEDS ORDERED: DOCUSATE SODIUM 100MG CAPSULE PO SCH (21:00)
[2023-09-23] MEDS: ROSUVASTATIN 10 MG TAB (CRESTOR) PO SCH (21:36)
[2023-09-23] MEDS: APIXABAN 5 MG TAB (ELIQUIS) PO SCH (21:36)
[2023-09-23] MEDS: GABAPENTIN 100 MG CAP PO SCH (21:36)
[2023-09-23 21:37] VITALS: BP 167/85
[2023-09-23] MEDS: OMEPRAZOLE 20MG CAP PO SCH (21:37)
[2023-09-23] MEDS: dilTIAZem 30 MG TAB PO SCH (21:37)
[2023-09-23] MEDS: DOCUSATE SODIUM 100MG CAPSULE PO SCH (21:37)
[2023-09-23 22:40] VITALS: BP 150/66
[2023-09-23 23:56] VITALS: BP 125/69; TEMP 97.1; O2SAT 98
[2023-09-24 04:00] VITALS: BP 138/72; TEMP 97.4; O2SAT 98
[2023-09-24 05:47] LABS: HEMATOCRIT 31.5 % (36.0-47.0); HEMOGLOBIN 10.1 g/dl (12.0-15.5); LYMPH # 0.6 10^3/uL (1.5-5.0); LYMPH % 12.5 % (24.0-44.0); MEAN CORPUSCULAR HEMOGLOBIN 24.2 pg (27.0-33.0); MEAN CORPUSCULAR HGB CONC 32.1 g/dl (32.0-36.5); MEAN CORPUSCULAR VOLUME 75.4 fl (80.0-96.0); MONO # 0.4 10^3/uL (0.0-0.8); NEUTROPHILS # 3.6 10^3/uL (1.5-8.5); NEUTROPHILS % 77.8 % (36.0-66.0); PLATELET COUNT, AUTOMATED 476 10^3/uL (150-450); RED BLOOD COUNT 4.18 10^6/uL (4.00-5.40); WHITE BLOOD COUNT 4.6 10^3/uL (4.0-10.0)
[2023-09-24 06:14] LABS: ALBUMIN 2.4 G/DL (3.2-5.2); ALKALINE PHOSPHATASE 71 U/L (46-116); ALT/SGPT 9 U/L (7.0-40); AST/SGOT 10 U/L (<34); BILIRUBIN,TOTAL 0.3 MG/DL (0.3-1.2); BLOOD UREA NITROGEN 19 MG/DL (9-23); CALCIUM LEVEL 8.5 MG/DL (8.3-10.6); CARBON DIOXIDE LEVEL 31 MMOL/L (20-31); CHLORIDE LEVEL 102 MMOL/L (98-107); CREATININE FOR GFR 0.45 MG/DL (0.55-1.30); GLOMERULAR FILTRATION RATE > 60.0 (>39); GLUCOSE, FASTING 123 MG/DL (74-106); MAGNESIUM LEVEL 2.2 MG/DL (1.8-2.4); POTASSIUM SERUM 4.5 MMOL/L (3.5-5.1); SODIUM LEVEL 138 MMOL/L (136-145); TOTAL PROTEIN 5.9 G/DL (5.7-8.2)
[2023-09-24] MEDS ORDERED: traMADol 50 MG TAB PO PRN (06:45)
[2023-09-24] MEDS ORDERED: LORazepam 0.5 MG TAB PO PRN (06:45)
[2023-09-24 07:46] VITALS: BP 132/78; TEMP 97.8; O2SAT 96
[2023-09-24] MEDS ORDERED: IPRATROPIUM 0.02% SOLN 0.5MG 2.5ML NEB INH SCH (08:00)
[2023-09-24] MEDS: SYMBICORT 160/4.5MCG INHALER 6GM INH SCH (08:55)
[2023-09-24] MEDS: predniSONE 10MG TAB PO SCH (10:42)
[2023-09-24] MEDS: SENNA 8.6 MG TAB (SENOKOT) PO SCH (10:42)
[2023-09-24] MEDS ORDERED: CEFD1CAP9 PO (11:45)
[2023-09-24] MEDS ORDERED: AZIT-12 PO (11:45)
[2023-09-24 11:48] VITALS: BP 113/55; TEMP 98.7; O2SAT 95
[2023-09-24] MEDS ORDERED: cefTRIAXone SOD 1 GM in D5W MINI-BAG PLUS 50 ML IV SCH (16:00)
[2023-09-24] MEDS ORDERED: AZITHROMYCIN 250MG TABLET PO SCH (18:00)
== END 2023-09-24 15:25 | disposition home or self-care (01) | DRG 194 ==
LOC: M ED 10:46 → M ED INP 15:50 → M PCU 20:13
PROVIDERS: ADMIT Internal Medicine; ATTEND Internal Medicine
PROC: B246ZZZ Ultrasonography of Right and Left Heart (ICD-10-PCS; principal; 2023-09-24)
DX: J18.9 Pneumonia, unspecified organism (principal); J96.11 Chronic respiratory failure with hypoxia; I31.39 Other pericardial effusion (noninflammatory); C34.12 Malignant neoplasm of upper lobe, left bronchus or lung; B44.9 Aspergillosis, unspecified; J44.0 Chronic obstructive pulmonary disease with (acute) lower respiratory infection; I48.91 Unspecified atrial fibrillation; I10 Essential (primary) hypertension; E78.5 Hyperlipidemia, unspecified; M81.0 Age-related osteoporosis without current pathological fracture; K21.9 Gastro-esophageal reflux disease without esophagitis; Z96.651 Presence of right artificial knee joint; Z96.611 Presence of right artificial shoulder joint; Z87.891 Personal history of nicotine dependence; Z99.81 Dependence on supplemental oxygen; Z92.21 Personal history of antineoplastic chemotherapy; Z90.49 Acquired absence of other specified parts of digestive tract; Z92.3 Personal history of irradiation

== ENCOUNTER 2023-10-26 11:42 | Emergency (ER) | payer MEDICARE ==
[~2023-10-26] VITALS: Ht 157.5 cm; Wt 50.0 kg
[~2023-10-26 11:42] MED LIST changes: +CALC-190 PO; +CEFD1CAP9 PO; +CIPR500T39 PO; +IPRA2IN INH; +PRED10PA PO; +SPIR12.9 INH
[2023-10-26 12:32] LABS: VENOUS PARTIAL PRESSURE CO2 47.1 mmHg (38.0-50.0); VENOUS PARTIAL PRESSURE O2 48.1 mmHg (30.0-50.0); VENOUS PH 7.373 UNITS (7.330-7.430)
[2023-10-26 12:33] LABS: VENOUS BASE EXCESS 1.2 (-2.0-2.0); VENOUS HCO3 25.2 MMOL/L (23.0-27.0); VENOUS O2 SATURATION 80.2 % (60.0-80.0); VENOUS TOTAL CO2 28.2 MMOL/L (24.0-28.0)
[2023-10-26 12:34] LABS: BASO % 0.3 % (0.0-1.0); EOS % 0.2 % (0.0-3.0); HEMATOCRIT 30.1 % (36.0-47.0); HEMOGLOBIN 9.3 g/dl (12.0-15.5); LYMPH # 0.8 10^3/uL (1.5-5.0); LYMPH % 6.2 % (24.0-44.0); MEAN CORPUSCULAR HEMOGLOBIN 24.2 pg (27.0-33.0); MEAN CORPUSCULAR HGB CONC 30.9 g/dl (32.0-36.5); MEAN CORPUSCULAR VOLUME 78.2 fl (80.0-96.0); MONO # 1.2 10^3/uL (0.0-0.8); PLATELET COUNT, AUTOMATED 548 10^3/uL (150-450); RED BLOOD COUNT 3.85 10^6/uL (4.00-5.40); WHITE BLOOD COUNT 13.1 10^3/uL (4.0-10.0)
[2023-10-26 12:59] LABS: CPK CREATINE PHOSPHOKINASE 28 U/L (34-145); MB/CK RELATIVE INDEX 3.57 (< OR =4)
[2023-10-26 13:00] LABS: ALBUMIN 2.6 G/DL (3.2-5.2); ALKALINE PHOSPHATASE 79 U/L (46-116); ALT/SGPT < 9 U/L (7.0-40); AST/SGOT 9 U/L (<34); BILIRUBIN,DIRECT 0.1 MG/DL (<0.4); BILIRUBIN,TOTAL 0.3 MG/DL (0.3-1.2); BLOOD UREA NITROGEN 7 MG/DL (9-23); CALCIUM LEVEL 8.3 MG/DL (8.3-10.6); CARBON DIOXIDE LEVEL 34 MMOL/L (20-31); CHLORIDE LEVEL 102 MMOL/L (98-107); CREATININE FOR GFR 0.46 MG/DL (0.55-1.30); GLOMERULAR FILTRATION RATE > 60.0 (>39); GLUCOSE, FASTING 93 MG/DL (74-106); POTASSIUM SERUM 3.8 MMOL/L (3.5-5.1); SODIUM LEVEL 138 MMOL/L (136-145)
[2023-10-26 13:02] LABS: THYROID STIMULATING HORMONE 1.861 uIU/ML (0.55-4.78); THYROXINE (T4) 8.8 UG/DL (4.5-10.9)
[2023-10-26 13:49] LABS: PROCALCITONIN <0.04 ng/ml
[2023-10-26] MEDS ORDERED: PRED10TA2 PO (15:13)
[2023-10-26] MEDS ORDERED: CEFD1CAP9 PO (15:13)
[2023-10-26] MEDS ORDERED: BENZ200C70 PO (15:13)
[2023-10-26] MEDS: methylPREDNISolone 125MG 2ML VIAL IV ONE (15:14)
[2023-10-26] MEDS: cefTRIAXone SOD 1 GM in D5W MINI-BAG PLUS 50 ML IV ONE (15:14)
[2023-10-26] MEDS: IPRATROPIUM 0.5MG/ALBUTEROL 2.5MG INH SOL UD 3ML (DUONEB) NEB ONE (15:24)
[2023-10-26 15:29] VITALS: O2SAT 95
[2023-10-26] MEDS: AZITHROMYCIN INJ 500 MG, VIAL MATE ADAPTER 1 EACH in NS 250 ML IV ONE (16:12)
[2023-10-26 16:45] VITALS: TEMP 99.5
[2023-10-26 17:15] VITALS: BP 144/85; O2SAT 94
== END 2023-10-26 17:18 | disposition home or self-care (01) ==
LOC: M ED 11:42 → EDBD 11:42 → M ED 17:18
DX: J21.1 Acute bronchiolitis due to human metapneumovirus (principal); J44.9 Chronic obstructive pulmonary disease, unspecified; I48.91 Unspecified atrial fibrillation; Z85.118 Personal history of other malignant neoplasm of bronchus and lung; Z79.01 Long term (current) use of anticoagulants; Z79.899 Other long term (current) drug therapy

== ENCOUNTER 2023-10-28 15:46 | Inpatient (IN) | payer MEDICARE ==
[~2023-10-28] VITALS: Ht 157.5 cm; Wt 47.0 kg
[~2023-10-28 15:46] MED LIST changes: +BENZ200C70 PO; +PRED10TA2 PO
[2023-10-28 17:04] LABS: VENOUS BASE EXCESS 4.5 (-2.0-2.0); VENOUS HCO3 30.4 MMOL/L (23.0-27.0); VENOUS O2 SATURATION 59.2 % (60.0-80.0); VENOUS PARTIAL PRESSURE CO2 51.1 mmHg (38.0-50.0); VENOUS PARTIAL PRESSURE O2 32.1 mmHg (30.0-50.0); VENOUS PH 7.392 UNITS (7.330-7.430); VENOUS STANDARD HCO3 27.7 MMOL/L; VENOUS TOTAL CO2 31.9 MMOL/L (24.0-28.0)
[2023-10-28 17:33] LABS: EOS % 0.1 % (0.0-3.0); HEMATOCRIT 33.7 % (36.0-47.0); HEMOGLOBIN 10.3 g/dl (12.0-15.5); LYMPH # 0.5 10^3/uL (1.5-5.0); LYMPH % 4.8 % (24.0-44.0); MEAN CORPUSCULAR HEMOGLOBIN 23.7 pg (27.0-33.0); MEAN CORPUSCULAR HGB CONC 30.6 g/dl (32.0-36.5); MEAN CORPUSCULAR VOLUME 77.5 fl (80.0-96.0); MONO # 0.7 10^3/uL (0.0-0.8); MONO % 7.4 % (2.0-8.0); NEUTROPHILS # 8.7 10^3/uL (1.5-8.5); NEUTROPHILS % 87.1 % (36.0-66.0); PLATELET COUNT, AUTOMATED 683 10^3/uL (150-450); RED BLOOD COUNT 4.35 10^6/uL (4.00-5.40)
[2023-10-28 17:37] LABS: THYROID STIMULATING HORMONE 1.406 uIU/ML (0.55-4.78); THYROXINE (T4) 9.4 UG/DL (4.5-10.9)
[2023-10-28 17:44] LABS: ALKALINE PHOSPHATASE 82 U/L (46-116); ALT/SGPT < 9 U/L (7.0-40); AST/SGOT 13 U/L (<34); BILIRUBIN,DIRECT < 0.1 MG/DL (<0.4); BILIRUBIN,TOTAL 0.2 MG/DL (0.3-1.2); BLOOD UREA NITROGEN 14 MG/DL (9-23); CALCIUM LEVEL 8.7 MG/DL (8.3-10.6); CARBON DIOXIDE LEVEL 35 MMOL/L (20-31); CHLORIDE LEVEL 100 MMOL/L (98-107); CREATININE FOR GFR 0.46 MG/DL (0.55-1.30); GLOMERULAR FILTRATION RATE > 60.0 (>39); GLUCOSE, FASTING 110 MG/DL (74-106); POTASSIUM SERUM 3.9 MMOL/L (3.5-5.1); SODIUM LEVEL 139 MMOL/L (136-145); TOTAL PROTEIN 6.9 G/DL (5.7-8.2)
[2023-10-28] MEDS ORDERED: IPRATROPIUM 0.5MG/ALBUTEROL 2.5MG INH SOL UD 3ML (DUONEB) NEB ONE (17:50)
[2023-10-28] MEDS: methylPREDNISolone 125MG 2ML VIAL IV ONE (17:50)
[2023-10-28] MEDS: NS 1,000 ML IV ONE (18:10)
[2023-10-28 18:11] LABS: RSV AMPLIFICATION NEGATIVE (NEGATIVE)
[2023-10-28 18:15] LABS: PROCALCITONIN <0.04 ng/ml
[2023-10-28] MEDS: IPRATROPIUM 0.5MG/ALBUTEROL 2.5MG INH SOL UD 3ML (DUONEB) NEB ONE (18:29)
[2023-10-28] MEDS ORDERED: ACETAMINOPHEN TAB 650MG DOSE (2X325MG) PO PRN (18:55)
[2023-10-28 20:21] LABS: EOS % 0.1 % (0.0-3.0); HEMATOCRIT 29.5 % (36.0-47.0); HEMOGLOBIN 8.9 g/dl (12.0-15.5); LYMPH # 0.8 10^3/uL (1.5-5.0); MEAN CORPUSCULAR HEMOGLOBIN 23.1 pg (27.0-33.0); MEAN CORPUSCULAR HGB CONC 30.2 g/dl (32.0-36.5); MEAN CORPUSCULAR VOLUME 76.4 fl (80.0-96.0); MONO # 0.7 10^3/uL (0.0-0.8); MONO % 8.2 % (2.0-8.0); NEUTROPHILS # 6.4 10^3/uL (1.5-8.5); NEUTROPHILS % 81.4 % (36.0-66.0); PLATELET COUNT, AUTOMATED 602 10^3/uL (150-450); RED BLOOD COUNT 3.86 10^6/uL (4.00-5.40); WHITE BLOOD COUNT 7.9 10^3/uL (4.0-10.0)
[2023-10-28] MEDS ORDERED: BENZ200C70 PO (20:23)
[2023-10-28] MEDS ORDERED: ALBU2.5V10 NEB (20:23)
[2023-10-28] MEDS ORDERED: MIRT-88 PO (20:23)
[2023-10-28] MEDS ORDERED: PRED10PA2 PO (20:23)
[2023-10-28] MEDS ORDERED: OCUVTAB4 PO (20:23)
[2023-10-28] MEDS ORDERED: CEFD1CAP9 PO (20:23)
[2023-10-28] MEDS ORDERED: HOME MED LIST COMPLETE! XX SCH (20:35)
[2023-10-28] MEDS: IPRATROPIUM 0.5MG/ALBUTEROL 2.5MG INH SOL UD 3ML (DUONEB) NEB SCH (20:46)
[2023-10-28] MEDS ORDERED: SENNA 8.6 MG TAB (SENOKOT) PO SCH (21:00)
[2023-10-28] MEDS ORDERED: LORazepam 0.5 MG TAB PO PRN (21:15)
[2023-10-28 21:40] VITALS: BP 141/90; TEMP 98.1; O2SAT 89
[2023-10-28] MEDS: ROSUVASTATIN 10 MG TAB (CRESTOR) PO SCH (22:21)
[2023-10-28] MEDS: GABAPENTIN 100 MG CAP PO SCH (22:21)
[2023-10-28] MEDS: BENZONATATE 100MG CAPSULE PO PRN (22:22)
[2023-10-28] MEDS: DOCUSATE SODIUM 100MG CAPSULE PO SCH (22:22)
[2023-10-28] MEDS: SENNA 8.6 MG TAB (SENOKOT) PO SCH (22:22)
[2023-10-28] MEDS: dilTIAZem 30 MG TAB PO SCH (22:23)
[2023-10-28] MEDS: guaiFENesin DM LIQ 10ML UD PO PRN (22:23)
[2023-10-28] MEDS: OMEPRAZOLE 20MG CAP PO SCH (22:23)
[2023-10-28] MEDS: LevoFLOXacin IV 750 MG in IV 1 EA IV SCH (22:23)
[2023-10-28] MEDS: APIXABAN 5 MG TAB (ELIQUIS) PO SCH (22:24)
[2023-10-29] MEDS: methylPREDNISolone 125MG 2ML VIAL IV SCH ×2 (02:25→23:27)
[2023-10-29 04:36] VITALS: BP 144/91; TEMP 98.2; O2SAT 97
[2023-10-29 05:22] VITALS: O2SAT 94
[2023-10-29] MEDS: ALBUTEROL SULFATE 2.5MG/0.5ML INH NEB SOLN NEB PRN (05:27)
[2023-10-29 05:44] LABS: ABG BASE EXCESS 6.3 (-2.0-2.0); ABG HCO3 30.6 MMOL/L (22.0-26.0); ABG O2 SATURATION 99.2 % (95.0-99.0); ABG PARTIAL PRESSURE CO2 42.8 mmHg (35.0-45.0); ABG PARTIAL PRESSURE O2 191.9 mmHg (75.0-100.0); ABG STANDARD HCO3 30.2 MMOL/L. (22.0-26.0); ABG TOTAL CO2 31.9 MMOL/L (23.0-31.0); ABG pH (ARTERIAL) 7.472 UNITS (7.350-7.450)
[2023-10-29 07:58] LABS: BLOOD UREA NITROGEN 11 MG/DL (9-23); CALCIUM LEVEL 8.9 MG/DL (8.3-10.6); CARBON DIOXIDE LEVEL 32 MMOL/L (20-31); CHLORIDE LEVEL 100 MMOL/L (98-107); CREATININE FOR GFR 0.42 MG/DL (0.55-1.30); GLOMERULAR FILTRATION RATE > 60.0 (>39); GLUCOSE, FASTING 136 MG/DL (74-106); MAGNESIUM LEVEL 1.6 MG/DL (1.8-2.4); POTASSIUM SERUM 3.9 MMOL/L (3.5-5.1); SODIUM LEVEL 139 MMOL/L (136-145)
[2023-10-29] MEDS: MIRTAZAPINE 15 MG TAB PO SCH (09:31)
[2023-10-29] MEDS: PANTOPRAZOLE 40MG TAB (PROTONIX) PO SCH (09:31)
[2023-10-29] MEDS: CALCIUM CARBONATE 500 MG CHEW U/D PO SCH (09:31)
[2023-10-29] MEDS: VITAMIN D (CHOLECALCIFEROL) 400 INTERNATIONAL UNITS TAB PO SCH (09:31)
[2023-10-29] MEDS: NITROGLYCERIN 0.4MG SUBL TABLET SL STA (10:28)
[2023-10-29 11:09] LABS: CK-MB VALUE MASS 1.2 NG/ML (<3.6)
[2023-10-29 11:28] LABS: MB/CK RELATIVE INDEX 1.6 (< OR =4)
[2023-10-29] MEDS: DIGOXIN INJ 0.5 MG/2 ML AMP IV SCH (12:10)
[2023-10-29] MEDS: MAG SULF 1GM/100ML (MAG RUN) 1 GM in IV 1 EA IV ONE (12:45)
[2023-10-29 13:20] VITALS: O2SAT 95
[2023-10-29 14:00] VITALS: BP 145/86; TEMP 98.1; O2SAT 96
[2023-10-29] MEDS: traMADol 50 MG TAB PO PRN (14:01)
[2023-10-29] MEDS: dilTIAZem 60 MG TAB PO SCH ×2 (14:02→23:27)
[2023-10-29 16:48] LABS: MB/CK RELATIVE INDEX 4.54 (< OR =4)
[2023-10-29] MEDS: LevoFLOXacin 750 MG TABLET PO SCH (18:38)
[2023-10-29] MEDS ORDERED: diltiaZEM 125 MG in NS 100 ML IV SCH (19:35)
[2023-10-29 20:01] VITALS: BP 153/78; TEMP 98.8; O2SAT 95
[2023-10-29] MEDS: dilTIAZem 60 MG TAB PO STA (20:21)
[2023-10-29] MEDS: AMITRIPTYLINE 25MG TABLET PO SCH (21:53)
[2023-10-29] MEDS: COLCHICINE 0.6 MG TABLET PO ONE (21:53)
[2023-10-29 23:11] VITALS: BP 137/72; TEMP 98.1; O2SAT 99
[2023-10-30] VITALS (28 sets, daily range): BP systolic 129–159; BP diastolic 70–87; TEMP 97.5–98.4; O2SAT 91–100
[2023-10-30 05:51] LABS: HEMATOCRIT 33.4 % (36.0-47.0); HEMOGLOBIN 10.5 g/dl (12.0-15.5); LYMPH # 0.5 10^3/uL (1.5-5.0); LYMPH % 7.4 % (24.0-44.0); MEAN CORPUSCULAR HEMOGLOBIN 23.6 pg (27.0-33.0); MEAN CORPUSCULAR HGB CONC 31.4 g/dl (32.0-36.5); MEAN CORPUSCULAR VOLUME 75.1 fl (80.0-96.0); MONO # 0.4 10^3/uL (0.0-0.8); MONO % 5.6 % (2.0-8.0); NEUTROPHILS # 5.7 10^3/uL (1.5-8.5); NEUTROPHILS % 86.5 % (36.0-66.0); PLATELET COUNT, AUTOMATED 637 10^3/uL (150-450); RED BLOOD COUNT 4.45 10^6/uL (4.00-5.40); WHITE BLOOD COUNT 6.6 10^3/uL (4.0-10.0)
[2023-10-30 06:13] LABS: BLOOD UREA NITROGEN 15 MG/DL (9-23); CARBON DIOXIDE LEVEL 36 MMOL/L (20-31); CHLORIDE LEVEL 96 MMOL/L (98-107); CREATININE FOR GFR 0.41 MG/DL (0.55-1.30); GLOMERULAR FILTRATION RATE > 60.0 (>39); GLUCOSE, FASTING 128 MG/DL (74-106); POTASSIUM SERUM 3.9 MMOL/L (3.5-5.1); SODIUM LEVEL 135 MMOL/L (136-145)
[2023-10-30] MEDS: COLCHICINE 0.6 MG TABLET PO SCH (09:05)
[2023-10-30] MEDS: methylPREDNISolone 40MG 1ML VIAL IV SCH (17:56)
[2023-10-30] MEDS: dilTIAZem 120MG **CD** CAPSULE PO SCH (20:01)
[2023-10-31] VITALS (27 sets, daily range): BP systolic 110–167; BP diastolic 68–88; TEMP 97.7–98.2; O2SAT 94–99
[2023-10-31 05:20] LABS: HEMATOCRIT 36.1 % (36.0-47.0); LYMPH # 0.5 10^3/uL (1.5-5.0); LYMPH % 6.7 % (24.0-44.0); MEAN CORPUSCULAR HEMOGLOBIN 22.9 pg (27.0-33.0); MEAN CORPUSCULAR HGB CONC 30.5 g/dl (32.0-36.5); MEAN CORPUSCULAR VOLUME 75.2 fl (80.0-96.0); MONO # 1.1 10^3/uL (0.0-0.8); MONO % 13.5 % (2.0-8.0); NEUTROPHILS # 6.3 10^3/uL (1.5-8.5); NEUTROPHILS % 79.5 % (36.0-66.0); PLATELET COUNT, AUTOMATED 670 10^3/uL (150-450); WHITE BLOOD COUNT 7.9 10^3/uL (4.0-10.0)
[2023-10-31 05:46] LABS: BLOOD UREA NITROGEN 20 MG/DL (9-23); CALCIUM LEVEL 8.7 MG/DL (8.3-10.6); CARBON DIOXIDE LEVEL 34 MMOL/L (20-31); CHLORIDE LEVEL 97 MMOL/L (98-107); CREATININE FOR GFR 0.44 MG/DL (0.55-1.30); GLOMERULAR FILTRATION RATE > 60.0 (>39); GLUCOSE, FASTING 114 MG/DL (74-106); MAGNESIUM LEVEL 1.9 MG/DL (1.8-2.4); SODIUM LEVEL 136 MMOL/L (136-145)
[2023-10-31] MEDS: FUROSEMIDE 40MG/4ML VIAL IV ONE (07:35)
[2023-10-31] MEDS: dilTIAZem 120MG **CD** CAPSULE PO ONE (07:36)
[2023-11-01] VITALS (16 sets, daily range): BP systolic 104–150; BP diastolic 65–84; TEMP 97–97.2; O2SAT 93–100
[2023-11-01 05:39] LABS: BASO % 0.1 % (0.0-1.0); HEMATOCRIT 38.3 % (36.0-47.0); LYMPH # 0.6 10^3/uL (1.5-5.0); LYMPH % 6.4 % (24.0-44.0); MEAN CORPUSCULAR HEMOGLOBIN 23.3 pg (27.0-33.0); MEAN CORPUSCULAR HGB CONC 31.3 g/dl (32.0-36.5); MEAN CORPUSCULAR VOLUME 74.2 fl (80.0-96.0); MONO # 1.4 10^3/uL (0.0-0.8); MONO % 15.1 % (2.0-8.0); NEUTROPHILS # 7.4 10^3/uL (1.5-8.5); NEUTROPHILS % 78.2 % (36.0-66.0); PLATELET COUNT, AUTOMATED 643 10^3/uL (150-450); RED BLOOD COUNT 5.16 10^6/uL (4.00-5.40); WHITE BLOOD COUNT 9.5 10^3/uL (4.0-10.0)
[2023-11-01 06:13] LABS: BLOOD UREA NITROGEN 29 MG/DL (9-23); CALCIUM LEVEL 8.6 MG/DL (8.3-10.6); CARBON DIOXIDE LEVEL 38 MMOL/L (20-31); CHLORIDE LEVEL 96 MMOL/L (98-107); CREATININE FOR GFR 0.56 MG/DL (0.55-1.30); GLOMERULAR FILTRATION RATE > 60.0 (>39); GLUCOSE, FASTING 114 MG/DL (74-106); MAGNESIUM LEVEL 1.9 MG/DL (1.8-2.4); POTASSIUM SERUM 3.9 MMOL/L (3.5-5.1); SODIUM LEVEL 136 MMOL/L (136-145)
[2023-11-01] MEDS ORDERED: DILT240C82 PO (08:28)
[2023-11-01] MEDS ORDERED: SELF1KIT MC (08:28)
[2023-11-01] MEDS ORDERED: COLC0.6T47 PO (08:28)
[2023-11-01] MEDS ORDERED: LEVO1TAB40 PO (08:28)
[2023-11-01] MEDS ORDERED: DOXY150C3 PO (08:28)
[2023-11-01] MEDS ORDERED: PRED10TA2 PO ×2 (08:28)
[2023-11-01] MEDS ORDERED: ALBU8.5H INH (08:31)
[2023-11-01] MEDS ORDERED: GABA-1171 PO (08:34)
[2023-11-01] MEDS: dilTIAZem 120MG **CD** CAPSULE PO SCH (09:00)
[2023-11-01] MEDS: SODIUM CHLORIDE 0.9% INJ 10 ML SYR IV PRN (12:58)
[2023-11-02] MEDS ORDERED: SODIUM CHLORIDE 0.9% INJ 10 ML SYR IV SCH (09:00)
[2023-11-02] MEDS ORDERED: predniSONE 20 MG TAB PO SCH (09:00)
== END 2023-11-01 13:25 | disposition home health service (06) | DRG 191 ==
LOC: M ED 15:46 → M ED INP 18:54 → M MSPAV 21:30 → M PCU 10-29 19:56
PROVIDERS: ADMIT Internal Medicine; ATTEND General Practice
DX: J44.1 Chronic obstructive pulmonary disease with (acute) exacerbation (principal); J96.11 Chronic respiratory failure with hypoxia; I48.20 Chronic atrial fibrillation, unspecified; I31.39 Other pericardial effusion (noninflammatory); I31.1 Chronic constrictive pericarditis; I45.10 Unspecified right bundle-branch block; I08.3 Combined rheumatic disorders of mitral, aortic and tricuspid valves; I27.20 Pulmonary hypertension, unspecified; M81.0 Age-related osteoporosis without current pathological fracture; Z99.81 Dependence on supplemental oxygen; Z90.2 Acquired absence of lung [part of]; Z90.49 Acquired absence of other specified parts of digestive tract; Z96.611 Presence of right artificial shoulder joint; Z96.651 Presence of right artificial knee joint; Z87.891 Personal history of nicotine dependence; Z79.01 Long term (current) use of anticoagulants; Z79.899 Other long term (current) drug therapy; Z85.118 Personal history of other malignant neoplasm of bronchus and lung; Z11.52 Encounter for screening for COVID-19; Z92.3 Personal history of irradiation

== ENCOUNTER → 2023-11-22 | Outpatient (CLI) | payer MEDICARE ==
[~2023-11-22] MED LIST changes: +ALBU2.5V10 NEB; +COLC0.6T47 PO; +DILT240C82 PO; +DOXY-444 PO; +DOXY150C5 PO; +LEVO1TAB40 PO; +MIRT-88 PO; +OCUVTAB4 PO; +PRED10PA2 PO; +SELF1KIT MC
== END ==
LOC: M PLAIMG 08:25
PROVIDERS: ATTEND Internal Medicine Pulmonary Disease
DX: R91.8 Other nonspecific abnormal finding of lung field (principal); I31.39 Other pericardial effusion (noninflammatory)

== ENCOUNTER → 2023-12-09 | Outpatient (REF) | payer MEDICARE ==
[~2023-12-09] MED LIST changes: +DOXY-440 PO; -DOXY-444 PO; +DOXY50CA35 PO; -DOXY50CA51 PO
== END ==
LOC: M LAB REF 17:12
PROVIDERS: ATTEND Internal Medicine Pulmonary Disease
DX: R91.8 Other nonspecific abnormal finding of lung field (principal)

== ENCOUNTER → 2024-05-04 | Outpatient (CLI) | payer MEDICARE ==
[~2024-05-04] MED LIST changes: -DOXY50CA35 PO; +DOXY50CA50 PO; +FERR1TAB8 PO; +LOSA50TA28; +ONDA-284 PO; -ONDA8TAB8 PO; -ROSU20TA61 PO; +ROSU20TA86 PO; +SENN-187 PO; -SENN-83 PO
== END ==
LOC: M ONCR 10:05
PROVIDERS: ATTEND General Practice
DX: Z08 Encounter for follow-up examination after completed treatment for malignant neoplasm (principal); J84.10 Pulmonary fibrosis, unspecified; L98.8 Other specified disorders of the skin and subcutaneous tissue; J44.9 Chronic obstructive pulmonary disease, unspecified; Z85.118 Personal history of other malignant neoplasm of bronchus and lung; Z79.899 Other long term (current) drug therapy; Z87.891 Personal history of nicotine dependence; Z92.21 Personal history of antineoplastic chemotherapy; Z92.3 Personal history of irradiation; Z99.81 Dependence on supplemental oxygen

== ENCOUNTER → 2024-05-16 | Outpatient (CLI) | payer MEDICARE ==
[~2024-05-16] MED LIST changes: +E-Z-GAS II EFFERVESCENT PACKET (SODIUM BICARB./CITRIC ACID/SIMETHICONE) As Ordered ONE; +E-Z-HD 98% w/w 340GM SUSP BTL As Ordered ONE; +E-Z-PAQUE 96% w/w SUSP 176GM BTL As Ordered ONE
== END ==
LOC: M RAD 10:51
PROVIDERS: ATTEND Nurse Practitioner Family
DX: D50.9 Iron deficiency anemia, unspecified (principal)

== ENCOUNTER → 2024-10-24 | Outpatient (CLI) | payer MEDICARE ==
[~2024-10-24] MED LIST changes: -E-Z-GAS II EFFERVESCENT PACKET (SODIUM BICARB./CITRIC ACID/SIMETHICONE) As Ordered ONE; -E-Z-HD 98% w/w 340GM SUSP BTL As Ordered ONE; -E-Z-PAQUE 96% w/w SUSP 176GM BTL As Ordered ONE
== END ==
LOC: M PLARAD 08:56
PROVIDERS: ATTEND Internal Medicine Pulmonary Disease
DX: R91.8 Other nonspecific abnormal finding of lung field (principal)
CPT/HCPCS: 78815; A9552

== ENCOUNTER → 2024-12-01 | Outpatient (REF) | payer MEDICARE | LOC: M LAB REF 12:57 | PROVIDERS: ATTEND Internal Medicine Pulmonary Disease | DX: R91.8 Other nonspecific abnormal finding of lung field (principal) ==